=== PATIENT | male | born 1955 | race African-American/Black ===

== ENCOUNTER → 2017-03-23 08:26 | Outpatient (CLI) | payer BC, SELFPAY ==
[2017-03-23 10:10] LABS: Absolute Lymphocyte Count 1.65 X10^3/ul (0.83-4.51); Absolute Neutrophil Count 3.2 X10^3/uL (2.0-7.7); Basophil# 0.04 X10^3/uL; Basophil% 0.8 % (0-1); Eosinophil# 0.06 X10^3/uL; Eosinophils% 1.1 % (0-5); Hematocrit 39.6 % (40-54); Hemoglobin 13.1 g/dl (13.0-16.5); Lymphocyte # 1.65 X10^3/ul (4.0); Lymphocyte % 31.1 % (19-41); Mean Corp Hgb Conc 33.1 g/gl (32-36); Mean Corpuscular Hgb 28.9 pg (27.0-32.0); Mean Corpuscular Volume 87.4 fL (80-94); Mean Platelet Vol. 12.3 fl (6.2-12.0); Monocyte# 0.32 X10^3/uL; Neutrophil # 3.22 X10^3/uL (2.7-7.7); Neutrophil % 60.8 % (47-70); Platelet Count 199 K/mm3 (150-450); RBC Distribution Width CV 13.5 % (11.6-14.6); Red Blood Count 4.53 M/mm3 (4.6-6.2); White Blood Count 5.3 K/mm3 (4.4-11.0)
[2017-03-23 10:12] LABS: POSITIVE COUNT NO; POSITIVE DIFFERENTIAL NO; POSITIVE MORPHOLOGY NO
[2017-03-23 10:51] LABS: PTHIN 85.8 pg/mL (18.4-80.1)
== END ==
PROVIDERS: Family Provider Family Medicine; PCP Family Medicine; Visit Provider Internal Medicine Nephrology
DX: N18.3 Chronic kidney disease, stage 3 (moderate) (principal)
CPT/HCPCS: 36415; 83970; 85025

== ENCOUNTER → 2017-03-29 12:07 | Outpatient (CLI) | payer BC, SELFPAY ==
[2017-03-29 13:30] LABS: Albumin, Serum 3.2 g/dL (3.2-5.0); BUN 28 mg/dL (7-18); BUN/Creat Ratio 9.4 RATIO (10-20); Calcium,Total 8.6 mg/dL (8.5-10.1); Chloride 108 mmol/L (98-107); Creatinine, Serum 2.97 mg/dL (0.70-1.30); EST Glomerular Filtration Rate 23 mL/min (>60); Est Glom Filt Rate - Afr Amer 28 mL/min (>60); Glucose 182 mg/dL (74-106); Phosphorus 2.7 mg/dL (2.5-4.9); Potassium 4.2 mmol/L (3.5-5.1); Sodium Level 138 mmol/L (136-145)
== END ==
PROVIDERS: Family Provider Family Medicine; PCP Family Medicine; Visit Provider Internal Medicine Nephrology
DX: N18.3 Chronic kidney disease, stage 3 (moderate) (principal)
CPT/HCPCS: 36415; 80069

== ENCOUNTER → 2017-04-04 15:39 | Outpatient (CLI) | payer BC, SELFPAY ==
[2017-04-04 16:36] LABS: Hematocrit 37.4 % (40-54); Hemoglobin 12.2 g/dl (13.0-16.5); Mean Corp Hgb Conc 32.6 g/gl (32-36); Mean Corpuscular Hgb 28.3 pg (27.0-32.0); Mean Corpuscular Volume 86.8 fL (80-94); Mean Platelet Vol. 11.3 fl (6.2-12.0); Platelet Count 225 K/mm3 (150-450); RBC Distribution Width CV 13.6 % (11.6-14.6); RBC Distribution Width SD 43.6 fl (35.1-43.9); Red Blood Count 4.31 M/mm3 (4.6-6.2); White Blood Count 5.6 K/mm3 (4.4-11.0)
[2017-04-04 16:41] LABS: Scan Indicated on CBC? Y/N NO
[2017-04-04 17:04] LABS: Prothrombin Time (Protime)PT. 12.8 SECONDS (11.7-14.9)
== END ==
PROVIDERS: Family Provider Family Medicine; PCP Family Medicine; Visit Provider Internal Medicine Nephrology
DX: N18.3 Chronic kidney disease, stage 3 (moderate) (principal); R80.9 Proteinuria, unspecified
CPT/HCPCS: 36415; 85027; 85610; 85730

== ENCOUNTER → 2017-04-14 07:41 | Outpatient (CLI) | payer BC, SELFPAY ==
--- NOTE | 2017-04-14 | KID_PTH ---
PATIENT: JESSI ACOSTA LOC: CT U#:[id number] AGE/SX: 69/M ROOM: RE04/14/[address]: Dr. Lelia Hinojosa DO : 1955 BED: DIS: SPEC #: [id number] RECD: 04/14/17 10:33 STATUS: INDIO FREDERIC #: [id number] JAMSHID: 04/14/17 00:[address]: Lelia Hinojosa DEPT: SURGICAL PATHOLOGY RECD BY: Sami Landrum ENTERED: 04/14/17 10:34 SP TYPE: KIDNEY OTHR DR: Dr. Anupam Daily MD Tissues: Kidney, NOS Procedures: Electron Microscopy (ACH) Fluorescent Antibody (ACH) Sp [facility] Kidney ([facility]) Kidney Biopsy (ACH) HEADER OPERATION: CT-guided kidney biopsy - left PRE-OP DIAGNOSIS: Proteinuria TISSUE SUBMITTED: 18g core x4, left kidney MICROSCOPIC DIAGNOSIS Renal biopsy with arterionephrosclerosis, approximately 50% global glomerulosclerosis, focal perihilar segmental sclerosis and chronic tubulointerstitial changes. COMMENT There is arterionephrosclerosis and perihilar segmental sclerosis with a large number of totally sclerotic glomeruli 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 There are moderate chronic tubulointerstitial changes. MICROSCOPIC DESCRIPTION Sections are examined with H & E, PAS, Yeung and trichrome stains. Controls for the special stains are appropriate. There are 28 glomeruli present. 14 show total glomerulosclerosis, 2 glomeruli show perihilar segmental glomerulosclerosis. The remainder glomeruli show mesangial sclerosis and thickened vascular poles. There is no glomerulitis and no acellular mesangial nodules suggestive of K-W nodules are evident. There are foci of tubular atrophy and there is moderate interstitial fibrosis. There are scattered interstitial lymphocytes but no significant eosinophils. Arterioles show medial thickening. No fibrinoid change or arteritis is defined. IMMUNOFLUORESCENCE: There are 8 glomeruli present. 4 glomeruli are sclerotic. There is no glomerular staining to suggest specific deposition of immunoglobulins (IgG, IgA or IgM), complement components (C3 or C1q) or light chains (kappa or lambda). There are some albumin droplets in tubular cells consistent with proteinuria. There is no increase in glomerular fibrin deposition. ELECTRON MICROSCOPY: There are 4 glomeruli present. 2 glomeruli are sclerotic, demonstrating only stacks of collapsed basement membranes. In the preserved glomeruli, mesangia show increased matrix but no discrete deposits. The glomerular capillary loops show slightly thickened capillary basement membranes. There is mild to moderate epithelial cell foot process effacement. There are no electron dense deposits in glomerular capillary loops. Tubular basement membranes show no deposits. GROSS DESCRIPTION The specimen is sent entirely to [facility] for diagnosis. The specimen is received in transport medium and consists of four cores of suárez renal tissue 1.7 to 1.3 cm in length. The cores are divided for histology, immunofluorescence and electron microscopy.
--- NOTE | 2017-04-14 07:45 | CT_ITS ---
PROCEDURE: CT GUIDED PERCUTANEOUS KIDNEY BIOPSY. DATE: April 14, 2017. INDICATION: Male, 61 years old. Proteinuria. PHYSICIAN: Jeremie Hess M.D. MEDICATIONS: 2 mg of Versed and 50 mcg of fentanyl intravenously. Conscious sedation protocol was followed. Conscious sedation was started at 9:23 AM and terminated at 9:30 AM. The patient was monitored independently by the department nurse. ACCESS SITE: Lower pole of the left kidney. NEEDLE: 18-gauge core biopsy needle. SPECIMEN: 4 18-gauge core. EBL: None. COMPLICATIONS: None immediate. RADIATION DOSAGE (If Supplied By Facility): CTDIvol = ( 16 ) mGy, DLP = ( 735.61 ) mGycm. Individualized dose reduction techniques were utilized. The risks, benefits, and alternatives to the procedure and sedation were explained to the patient. The specific risk of hemorrhage requiring further treatment or intervention was detailed and accepted. Written informed consent was obtained. The patient was placed on the CT table in the prone position. Multiple axial images were obtained from the lung base through the caudal extent of the kidneys. An appropriate entry site was identified and a dian made on the skin. The skin overlying the [left ] posterior flank was prepped and draped in sterile fashion. 1% lidocaine was administered subcutaneously for local anesthesia. Initially, a 22 gauge needle was advanced and CT images confirmed good needle position. The 22 gauge needle was then exchanged for an 17 gauge introducer needle which was advanced. Repeat CT images confirmed good needle trajectory and tip position. The introducer needle was then advanced into the periphery of the inferior renal pole, and CT images were again obtained to confirm exact tip location. The inner stylet of the introducer needle was then removed and an 18 gauge coaxial needle was advanced thru the introducer needle and biopsy performed. A total of [4 ] passes were performed and the specimen collected was sent to Pathology for further evaluation. The needle was withdrawn. Hemostasis was achieved with manual compression and a sterile dressing was applied. Repeat CT images of the biopsy area was performed which demonstrated no gross bleeding or hematoma. The patient tolerated the procedure well without immediate complications. The patient was transported to the [floor/recovery area] in stable condition. CT/Biopsy/Inj or Needle Placement IMPRESSION: Successful CT guided percutaneous kidney biopsy. Electronically Signed: Jeremie Hess MD at 10:00 EST Tel [phone], Service support ,
[2017-04-14 08:15] VITALS: BP 156/99; PULSE 70; RESP 14; TEMP 36.9; O2SAT 97; BMI 34.4
[2017-04-14 10:45] VITALS: BP 135/96; PULSE 69; RESP 14; O2SAT 98
== END ==
PROVIDERS: Family Provider Family Medicine; PCP Family Medicine; Visit Provider Internal Medicine Nephrology
DX: R80.9 Proteinuria, unspecified (principal)
CPT/HCPCS: 50200; 77012; 88305; 88313; 88346; 88348; 99156; J7040; A4216

== ENCOUNTER → 2017-04-25 15:25 | Outpatient (CLI) | payer BC, SELFPAY ==
[2017-04-25 18:02] LABS: Hematocrit 37.6 % (40-54); Hemoglobin 12.1 g/dl (13.0-16.5); Mean Corp Hgb Conc 32.2 g/gl (32-36); Mean Corpuscular Hgb 28.1 pg (27.0-32.0); Mean Corpuscular Volume 87.4 fL (80-94); Mean Platelet Vol. 11.6 fl (6.2-12.0); Platelet Count 238 K/mm3 (150-450); RBC Distribution Width CV 13.7 % (11.6-14.6); RBC Distribution Width SD 43.6 fl (35.1-43.9); White Blood Count 5.6 K/mm3 (4.4-11.0)
[2017-04-25 18:16] LABS: Scan Indicated on CBC? Y/N NO
[2017-04-25 18:20] LABS: BUN 36 mg/dL (7-18); Calcium,Total 8.5 mg/dL (8.5-10.1); Chloride 106 mmol/L (98-107); Creatinine, Serum 3.27 mg/dL (0.70-1.30); EST Glomerular Filtration Rate 21 mL/min (>60); Est Glom Filt Rate - Afr Amer 25 mL/min (>60); Glucose 126 mg/dL (74-106); Phosphorus 4.2 mg/dL (2.5-4.9); Sodium Level 137 mmol/L (136-145)
== END ==
PROVIDERS: Family Provider Family Medicine; PCP Family Medicine; Visit Provider Internal Medicine Nephrology
DX: N18.3 Chronic kidney disease, stage 3 (moderate) (principal)
CPT/HCPCS: 36415; 80069; 85027

== ENCOUNTER → 2017-06-01 11:30 | Outpatient (CLI) | payer BC, SELFPAY ==
[2017-06-01 14:01] LABS: Hematocrit 36.6 % (40-54); Hemoglobin 12.4 g/dl (13.0-16.5); Mean Corp Hgb Conc 33.9 g/gl (32-36); Mean Corpuscular Hgb 29.1 pg (27.0-32.0); Mean Corpuscular Volume 85.9 fL (80-94); Mean Platelet Vol. 11.5 fl (6.2-12.0); Platelet Count 234 K/mm3 (150-450); RBC Distribution Width CV 13.3 % (11.6-14.6); RBC Distribution Width SD 41.4 fl (35.1-43.9); Red Blood Count 4.26 M/mm3 (4.6-6.2); White Blood Count 5.8 K/mm3 (4.4-11.0)
[2017-06-01 14:02] LABS: Scan Indicated on CBC? Y/N NO
[2017-06-01 14:16] LABS: Albumin, Serum 3.4 g/dL (3.2-5.0); BUN 36 mg/dL (7-18); Calcium,Total 8.6 mg/dL (8.5-10.1); Chloride 111 mmol/L (98-107); Creatinine, Serum 3.26 mg/dL (0.70-1.30); EST Glomerular Filtration Rate 21 mL/min (>60); Est Glom Filt Rate - Afr Amer 25 mL/min (>60); Glucose 96 mg/dL (74-106); Phosphorus 2.9 mg/dL (2.5-4.9); Sodium Level 141 mmol/L (136-145)
[2017-06-01 14:22] LABS: PTHIN 153.1 pg/mL (18.4-80.1)
[2017-06-01 14:35] LABS: Vitamin D,25 Hydroxy 24.5 ng/mL (29.95-100.01)
== END ==
PROVIDERS: Internal Medicine Nephrology; Family Provider Family Medicine; PCP Family Medicine; Visit Provider Family Medicine
DX: N18.4 Chronic kidney disease, stage 4 (severe) (principal); E55.9 Vitamin D deficiency, unspecified
CPT/HCPCS: 36415; 80069; 82306; 83970; 85027

== ENCOUNTER → 2017-08-05 10:02 | Outpatient (CLI) | payer BC, SELFPAY ==
[2017-08-05 12:15] LABS: Hematocrit 36.2 % (40-54); Hemoglobin 12.2 g/dl (13.0-16.5); Mean Corp Hgb Conc 33.7 g/gl (32-36); Mean Corpuscular Hgb 29.8 pg (27.0-32.0); Mean Corpuscular Volume 88.5 fL (80-94); Mean Platelet Vol. 12.6 fl (6.2-12.0); Platelet Count 197 K/mm3 (150-450); RBC Distribution Width CV 13.4 % (11.6-14.6); RBC Distribution Width SD 42.8 fl (35.1-43.9); Red Blood Count 4.09 M/mm3 (4.6-6.2); White Blood Count 5.2 K/mm3 (4.4-11.0)
[2017-08-05 12:19] LABS: Scan Indicated on CBC? Y/N NO
[2017-08-05 12:29] LABS: BUN 34 mg/dL (7-18); BUN/Creat Ratio 9.5 RATIO (10-20); Calcium,Total 8.4 mg/dL (8.5-10.1); Chloride 109 mmol/L (98-107); Creatinine, Serum 3.58 mg/dL (0.70-1.30); EST Glomerular Filtration Rate 19 mL/min (>60); Est Glom Filt Rate - Afr Amer 22 mL/min (>60); Glucose 215 mg/dL (74-106); Phosphorus 2.8 mg/dL (2.5-4.9); Potassium 4.3 mmol/L (3.5-5.1); Sodium Level 139 mmol/L (136-145)
[2017-08-05 12:42] LABS: PTHIN 100.2 pg/mL (18.4-80.1)
[2017-08-05 12:50] LABS: 24HR. UA Prot. Total Volume 1800 mL; Creat.Clear Total Volume 1800 mL; Creatinine Clearance 44 ml/min (100-200); Creatinine Serum Creat 3.6 mg/dL (0.8-1.3); EST Glomerular Filtration Rate 19 mL/min (>60); Est Glom Filt Rate - Afr Amer 22 mL/min (>60)
[2017-08-05 12:53] LABS: Urine Protein (24 Hour) 466.9 mg/dL (<11.9)
== END ==
PROVIDERS: Family Provider Family Medicine; PCP Family Medicine; Visit Provider Internal Medicine Nephrology
DX: E11.22 Type 2 diabetes mellitus with diabetic chronic kidney disease (principal); N18.4 Chronic kidney disease, stage 4 (severe)
CPT/HCPCS: 36415; 80069; 81050; 82570; 82575; 83970; 84156; 85027

== ENCOUNTER → 2017-11-09 15:38 | Outpatient (CLI) | payer BC, SELFPAY ==
[2017-11-09 17:43] LABS: Albumin, Serum 3.2 g/dL (3.2-5.0); BUN 42 mg/dL (7-18); BUN/Creat Ratio 9.6 RATIO (10-20); Calcium,Total 8.2 mg/dL (8.5-10.1); Chloride 110 mmol/L (98-107); Creatinine, Serum 4.37 mg/dL (0.70-1.30); EST Glomerular Filtration Rate 15 mL/min (>60); Est Glom Filt Rate - Afr Amer 18 mL/min (>60); Glucose 114 mg/dL (74-106); Phosphorus 3.8 mg/dL (2.5-4.9); Potassium 4.2 mmol/L (3.5-5.1); Sodium Level 142 mmol/L (136-145)
== END ==
PROVIDERS: Family Provider Family Medicine; PCP Family Medicine; Visit Provider Internal Medicine Nephrology
DX: N18.3 Chronic kidney disease, stage 3 (moderate) (principal)
CPT/HCPCS: 36415; 80069

== ENCOUNTER → 2017-12-26 08:42 | Outpatient (CLI) | payer BC, SELFPAY ==
[2017-12-26 10:56] LABS: AST(SGOT) 13 U/L (15-37); Alanine Aminotransfer ALT/SGPT 17 U/L (16-61); Albumin, Serum 3.2 g/dL (3.2-5.0); Alkaline Phosphatase 85 U/L (45-117); Anion Gap 7 (5-15); BUN 44 mg/dL (7-18); BUN/Creat Ratio 10.5 RATIO (10-20); Bilirubin, Direct 0.09 mg/dL (0.00-0.30); Calcium,Total 8.3 mg/dL (8.5-10.1); Chloride 110 mmol/L (98-107); Cholesterol 191 mg/dL (200); Creatinine, Serum 4.19 mg/dL (0.70-1.30); EST Glomerular Filtration Rate 15 mL/min (>60); Est Glom Filt Rate - Afr Amer 19 mL/min (>60); Globulin 4.1 g/dL (2.2-4.2); Glucose 190 mg/dL (74-106); High Density Lipoprotein 50 mg/dL; Potassium 4.5 mmol/L (3.5-5.1); Protein, Total 7.3 g/dL (6.4-8.2); Sodium Level 140 mmol/L (136-145); Triglycerides 98 mg/dL; Very Low Density Lipoprotein 20 mg/dL (5-40)
== END ==
PROVIDERS: Family Provider Family Medicine; PCP Family Medicine; Visit Provider Family Medicine
DX: I10 Essential (primary) hypertension (principal); E11.9 Type 2 diabetes mellitus without complications
CPT/HCPCS: 36415; 80048; 80061; 80076

== ENCOUNTER → 2018-01-23 08:34 | Outpatient (CLI) | payer BC, SELFPAY ==
[2018-01-23 10:21] LABS: Mean Corp Hgb Conc 32.4 g/gl (32-36); Mean Corpuscular Hgb 28.5 pg (27.0-32.0); Mean Corpuscular Volume 87.9 fL (80-94); Mean Platelet Vol. 11.7 fl (6.2-12.0); Platelet Count 210 K/mm3 (150-450); RBC Distribution Width CV 13.4 % (11.6-14.6); RBC Distribution Width SD 42.9 fl (35.1-43.9); Red Blood Count 4.21 M/mm3 (4.6-6.2); White Blood Count 6.4 K/mm3 (4.4-11.0)
[2018-01-23 10:22] LABS: Scan Indicated on CBC? Y/N NO
[2018-01-23 10:33] LABS: Albumin, Serum 3.3 g/dL (3.2-5.0); BUN 51 mg/dL (7-18); BUN/Creat Ratio 10.5 RATIO (10-20); Calcium,Total 8.2 mg/dL (8.5-10.1); Chloride 110 mmol/L (98-107); Creatinine, Serum 4.88 mg/dL (0.70-1.30); EST Glomerular Filtration Rate 13 mL/min (>60); Est Glom Filt Rate - Afr Amer 16 mL/min (>60); Glucose 184 mg/dL (74-106); Phosphorus 4.5 mg/dL (2.5-4.9); Potassium 4.4 mmol/L (3.5-5.1); Sodium Level 141 mmol/L (136-145)
[2018-01-23 10:57] LABS: PTHIN 293.8 pg/mL (18.4-80.1)
[2018-01-23 12:55] LABS: 24HR. UA Prot. Total Volume 1875 mL; Creat.Clear Total Volume 1875 mL; Creatinine Clearance 26 ml/min (100-200); Creatinine Serum Creat 4.9 mg/dL (0.8-1.3); Creatinine Urine 96.9 mg/dL (NO RANGE EST.); EST Glomerular Filtration Rate 13 mL/min (>60); Est Glom Filt Rate - Afr Amer 16 mL/min (>60)
[2018-01-23 12:58] LABS: Urine Protein (24 Hour) 531.8 mg/dL (<11.9)
--- OUTSIDE RECORDS SUMMARY | 2018-04-26 19:48 | XMS RPT_ITS ---
:1955 Author Organization OHIP Support Name Relationship Address Phone YANELY ACOSTA Unavailable [address] + [place] [address] [employer] Unavailable [address] +[place] [address] DAVE, YANELY Unavailable [address] + [place] [address] [employer] Unavailable [address] +[place] [address] DAVE, YANELY Unavailable [address] + [place] [address] [employer] Unavailable [address] +[place] [address] DAVE, YANELY Unavailable [address] + [place] [address] [employer] Unavailable [address] +[place] [address] DAVE, YANELY Unavailable [address] + [place] [address] [employer] Unavailable [address] +[place] [address] DAVE, YANELY Unavailable [address] + [place] [address] [employer] Unavailable [address] +[place] [address] DAVE, YANELY Unavailable [address] + [place] [address] [employer] Unavailable [address] +[place] [address] DAVE, YANELY Unavailable [address] + [place] [address] [employer] Unavailable [address] +[place] [address] DAVE, YANELY Unavailable [address] + [place] [address] [employer] Unavailable [address] +[place] [address] DAVE, YANELY Unavailable [address] + [place] [address] [employer] Unavailable [address] +[place] [address] DAVE, YANELY Unavailable [address] + [place] [address] [employer] Unavailable [address] +[place] [address] DAVE, YANELY Unavailable [address] + [place] [address] [employer] Unavailable [address] +[place] [address] DAVE, YANELY Unavailable [address] + [place] [address] [employer] Unavailable [address] +[place] [address] DAVE, YANELY Unavailable [address] + [place] [address] [employer] Unavailable [address] +[place] [address] DAVE, YANELY Unavailable [address] + [place] [address] [employer] Unavailable [address] +[place] [address] Care Team Providers Name Role Phone Lelia Hinojosa Attending Unavailable Daily, Anupam Primary Care Unavailable Lelia Hinojosa Attending Unavailable Daily, Anupam Primary Care Unavailable Lelia Hinojosa Attending Unavailable Daily, Anupam Primary Care Unavailable Lelia Hinojosa Attending Unavailable Daily, Anupam Primary Care Unavailable Lelia Hinojosa Attending Unavailable Daily, Anupam Primary Care Unavailable Lelia Hinojosa Attending Unavailable Daily, Anupam Primary Care Unavailable Lelia Hinojosa Attending Unavailable Daily, Anupam Primary Care Unavailable Lelia Hinojosa Attending Unavailable Lelia Hinojosa Referring Unavailable Daily, Anupam Primary Care Unavailable Lelia Hinojosa Attending Unavailable Daily, Anupam Primary Care Unavailable Daily, Anupam Attending Unavailable Daily, Anupam Primary Care Unavailable Lelia Hinojosa Attending Unavailable Lelia Hinojosa Attending Unavailable Daily, Anupam Primary Care Unavailable Lelia Hinojosa Attending Unavailable Daily, Anupam Primary Care Unavailable Lelia Hinojosa Attending Unavailable Daily, Anpuam Primary Care Unavailable Daily, Anupam Attending Unavailable Daily, Anupam Primary Care Unavailable PROBLEMS PROBLEMS DATE TYPE CONDITION / CODE ATTENDING STATUS SOURCE 12/26/2017 Unknown I10 - Essential Anupam Daily Active [place] (primary) Community hypertension / Hospital I10(ICD-10) Repository 11/09/2017 Unknown N18.3 - Chronic Lelia Hinojosa Active [place] kidney disease, Community stage 3 (moderate) Hospital / N18.3(ICD-10) Repository 06/10/2017 Unknown N18.4 - Chronic Lelia Hinojosa Active [place] kidney disease, Community stage 4 (severe) / Hospital N18.4(ICD-10) Repository 06/01/2017 Unknown E55.9 - Vitamin D Anupam Daily Active [place] deficiency, Community unspecified / Hospital E55.9(ICD-10) Repository 04/14/2017 Unknown R80.9 - L[place] Hinojosa Active [place] Proteinuria, Community unspecified / Hospital R80.9(ICD-10) Repository PROCEDURES PROCEDURES No Procedure Records FoundRESULTS RESULTS CBC-COMPLETE BLOOD CNT Collected: 02/27/2018 Status: F Source: [place] NO DIFF 1:46 PM [facility] [place] TYPE CODE TESTS RESULT OUT OF RANGE REFERENCE UNITS LAB L100.1000 4.4-11.0 K/mm3 Normal WBC 5.5 LAB L100.1200 4.6-6.2 M/mm3 Low RBC 4.20 LAB L100.1300 13.0-16.5 g/dl Low HGB 12.2 LAB L100.1400 40-54 % Low HCT 37.4 LAB L100.1500 80-94 fL Normal MCV 89.0 LAB L100.1600 27.0-32.0 pg Normal MCH 29.0 LAB L100.1700 32-36 g/gl Normal MCHC 32.6 LAB L100.1810 11.6-14.6 % Normal RDW CV 13.5 LAB L100.1820 35.1-43.9 fl Normal RDW SD 43.4 LAB L100.1900 150-450 K/mm3 Normal PLT 188 LAB L100.2000 6.2-12.0 fl High MPV 12.8 Performed By: #### L100.0500 #### [facility] [address] [place], [place], [address] RENAL PROFILE Collected: 02/27/2018 Status: F Source: [place] 1:46 PM [facility] [place] TYPE CODE TESTS RESULT OUT OF RANGE REFERENCE UNITS LAB L501.0100 74-106 mg/dL Low GLU 53 Result Comment: Please note revised GLUCOSE reference range effective 2017. LAB L501.1000 7-18 mg/dL High BUN 53 LAB L501.1100 0.70-1.30 mg/dL High CREAT,SERUM 5.78 Result Comment: The validity of the calculated GFR AND GFRAA in patients over 70 years has not been determined. Clinical correlation is essential. LAB L501.1110 >60 mL/min Low EST GFR 11 Result Comment: Non- GFR Calc LAB L501.1115 >60 mL/min Low EST GFR - AA 13 Result Comment: GFR Calc LAB L501.1300 10-20 RATIO Low BUN/CRE 9.2 LAB L501.1800 3.2-5.0 g/dL Normal ALB 3.4 LAB L501.2200 8.5-10.1 mg/dL Normal CA 8.5 LAB L501.2300 2.5-4.9 mg/dL Normal PHOS 3.8 LAB L501.5300 136-145 mmol/L Normal NA 142 LAB L501.5600 3.5-5.1 mmol/L Normal K 4.7 LAB L501.5900 98-107 mmol/L High CL 111 LAB L501.6100 21.0-32.0 mmol/L Low CO2 20.0 Performed By: #### L500.3600, L503.6075, L503.6150, L503.6550 #### [facility] [address] [place], [place], [id number] IRON BINDING Collected: 02/27/2018 Status: F Source: [facility] 1:46 PM [facility] [place] TYPE CODE TESTS RESULT OUT OF RANGE REFERENCE UNITS LAB L503.6075 250-450 ug/dL Normal TIBC 273 Performed By: #### L500.3600, L503.6075, L503.6150, L503.6550 #### [facility] [address] [facility]. [place], [place], [address] IRON Collected: 02/27/2018 Status: F Source: [place] 1:46 PM [facility] [place] TYPE CODE TESTS RESULT OUT OF RANGE REFERENCE UNITS LAB L503.6150 65-175 ug/dL Normal IRON 83 Performed By: #### L500.3600, L503.6075, L503.6150, L503.6550 #### [facility] [address] [place], [address] FERRITIN Collected: 02/27/2018 Status: F Source: [place] 1:46 PM [facility] [place] TYPE CODE TESTS RESULT OUT OF RANGE REFERENCE UNITS LAB L503.6550 26-388 ng/mL Normal FERRITIN 269 Performed By: #### L500.3600, L503.6075, L503.6150, L503.6550 #### [facility] [address] [place], [address] VITAMIN D,25 HYDROXY Collected: 02/27/2018 Status: F Source: [place] 1:46 PM [facility] [place] TYPE CODE TESTS RESULT OUT OF REFERENCE UNITS RANGE LAB L506.1000 29.95-100.01 ng/mL Low Vitamin D 18.7 25-OH Result Comment: Vitamin D 25(OH) Status Range Deficiency <20 ng/mL (50nmol/L) Insuffciency 20 - 30 ng/mL (50 - 75 nmol/L) Sufficiency 30 - 100 ng/mL (75 - 250 nmol/L) Toxicity >100 ng/mL (>250 nmol/L) Performed By: #### L506.1000 #### [facility] [address] [facility] [place], [address] PTHIN Collected: 02/27/2018 Status: F Source: [place] 1:46 PM [facility] [place] TYPE CODE TESTS RESULT OUT OF RANGE REFERENCE UNITS LAB L509.1000 18.4-80.1 pg/mL High PTHIN 245.2 Performed By: #### L509.1000 #### [facility] [address] [place], [address] CBC-COMPLETE BLOOD CNT Collected: 01/23/2018 Status: F Source: [place] NO DIFF 8:36 AM [facility] [place] TYPE CODE TESTS RESULT OUT OF RANGE REFERENCE UNITS LAB L100.1000 4.4-11.0 K/mm3 Normal WBC 6.4 LAB L100.1200 4.6-6.2 M/mm3 Low RBC 4.21 LAB L100.1300 13.0-16.5 g/dl Low HGB 12.0 LAB L100.1400 40-54 % Low HCT 37.0 LAB L100.1500 80-94 fL Normal MCV 87.9 LAB L100.1600 27.0-32.0 pg Normal MCH 28.5 LAB L100.1700 32-36 g/gl Normal MCHC 32.4 LAB L100.1810 11.6-14.6 % Normal RDW CV 13.4 LAB L100.1820 35.1-43.9 fl Normal RDW SD 42.9 LAB L100.1900 150-450 K/mm3 Normal PLT 210 LAB L100.2000 6.2-12.0 fl Normal MPV 11.7 Performed By: #### L100.0500 #### [facility] [address] [place], [address] RENAL PROFILE Collected: 01/23/2018 Status: F Source: [place] 8:36 AM [facility] [place] TYPE CODE TESTS RESULT OUT OF RANGE REFERENCE UNITS LAB L501.0100 74-106 mg/dL High GLU 184 Result Comment: Fasting Glucose result greater than or equal to 126 mg/dL suggests DIABETES MELLITUS per A.D.A. criteria. Please note revised GLUCOSE reference range effective 2017. LAB L501.1000 7-18 mg/dL High BUN 51 LAB L501.1100 0.70-1.30 mg/dL High CREAT,SERUM 4.88 Result Comment: The validity of the calculated GFR AND GFRAA in patients over 70 years has not been determined. Clinical correlation is essential. LAB L501.1110 >60 mL/min Low EST GFR 13 Result Comment: Non- GFR Calc LAB L501.1115 >60 mL/min Low EST GFR - AA 16 Result Comment: GFR Calc LAB L501.1300 10-20 RATIO Normal BUN/CRE 10.5 LAB L501.1800 3.2-5.0 g/dL Normal ALB 3.3 LAB L501.2200 8.5-10.1 mg/dL Low CA 8.2 LAB L501.2300 2.5-4.9 mg/dL Normal PHOS 4.5 LAB L501.5300 136-145 mmol/L NA Normal 141 LAB L501.5600 3.5-5.1 mmol/L K Normal 4.4 LAB L501.5900 98-107 mmol/L High CL 110 LAB L501.6100 21.0-32.0 mmol/L Normal CO2 23.0 Performed By: #### L500.3600 #### [facility] [address] [place], [address] PTHIN Collected: 01/23/2018 Status: F Source: [place] 8:36 AM [facility] [place] TYPE CODE TESTS RESULT OUT OF RANGE REFERENCE UNITS LAB L509.1000 18.4-80.1 pg/mL High PTHIN 293.8 Performed By: #### L509.1000 #### [facility] [address] [place], [address] 24 HR UR CREATININE Collected: 01/23/2018 Status: F Source: [place] CLEAR[place] 8:36 AM [facility] [place] TYPE CODE TESTS RESULT OUT OF RANGE REFERENCE UNITS LAB L501.0050 24.0 HOURS Normal UR COLLECT 24.0 TIME LAB L501.0075 mL Normal UR TOTAL 1875 VOLUME LAB L501.1050 0.8-1.3 mg/dL High SERUM CREAT 4.9 LAB L501.1110 >60 mL/min Low EST GFR 13 Result Comment: Non- GFR Calc LAB L501.1115 >60 mL/min Low EST GFR - AA 16 Result Comment: GFR Calc LAB L501.1150 NO RANGE mg/dL EST. URINE Normal CREAT 96.9 LAB L501.1250 100-200 ml/min Low CREAT CLEARANCE 26 Performed By: #### L500.4507 #### [facility] [address] [place], [address] PROTEIN, URINE 24HR Collected: 01/23/2018 Status: C Source: [place] 8:36 AM [facility] [place] TYPE CODE TESTS RESULT OUT OF RANGE REFERENCE UNITS LAB L501.1850 24.0 HOURS Normal UR COLLECT 24.0 TIME LAB L501.1875 mL Normal UR TOTAL 1875 VOLUME LAB L501.1925 <150 MG/24HR mg/24HR High 24hr UR 9971.3 PROTEIN Result Comment: AMENDED REPORT 01/23/18 1258 24hr UR PROTEIN previously reported as: 9971.2 H mg/24HR LAB L501.1900 <11.9 mg/dL High URINE PROTEIN 531.8 Performed By: #### L500.9000 #### [facility] [address] [place], [place], [address] BASIC METABOLIC Collected: 12/26/2017 Status: F Source: [place] PROFILE (BMP) 8:43 AM [facility] [place] TYPE CODE TESTS RESULT OUT OF RANGE REFERENCE UNITS LAB L501.0100 74-106 mg/dL High GLU 190 Result Comment: Fasting Glucose result greater than or equal to 126 mg/dL suggests DIABETES MELLITUS per A.D.A. criteria. Please note revised GLUCOSE reference range effective 2017. LAB L501.1000 7-18 mg/dL High BUN 44 LAB L501.1100 0.70-1.30 mg/dL High CREAT,SERUM 4.19 Result Comment: The validity of the calculated GFR AND GFRAA in patients over 70 years has not been determined. Clinical correlation is essential. LAB L501.1110 >60 mL/min Low EST GFR 15 Result Comment: Non- GFR Calc LAB L501.1115 >60 mL/min Low EST GFR - AA 19 Result Comment: GFR Calc LAB L501.1300 10-20 RATIO Normal BUN/CRE 10.5 LAB L501.2200 8.5-10.1 mg/dL Low CA 8.3 LAB L501.5300 136-145 mmol/L NA Normal 140 LAB L501.5600 3.5-5.1 mmol/L K Normal 4.5 LAB L501.5900 98-107 mmol/L High CL 110 LAB L501.6100 21.0-32.0 mmol/L Normal CO2 23.0 LAB L501.6200 5-15 Normal GAP 7 Performed By: #### L500.2500, L500.3400, L500.4100 #### [facility] [address] [place], [place], [address] LIVER PROFILE Collected: 12/26/2017 Status: F Source: [place] 8:43 AM [facility] [place] TYPE CODE TESTS RESULT OUT OF RANGE REFERENCE UNITS LAB L501.1500 6.4-8.2 g/dL Normal T PROT 7.3 LAB L501.1800 3.2-5.0 g/dL Normal ALB 3.2 LAB L501.1950 2.2-4.2 g/dL Normal GLOB 4.1 LAB L501.4100 15-37 U/L Low AST 13 LAB L501.4305 45-117 U/L Normal ALK P 85 LAB L501.4405 16-61 U/L Normal ALT 17 LAB L501.4600 0.20-1.00 mg/dL Normal T BILI 0.30 LAB L501.4700 0.00-0.30 mg/dL Normal D BILI 0.09 Performed By: #### L500.2500, L500.3400, L500.4100 #### [facility] [address] [facility] [address] [place], [place], [id number] LIPID PROFILE Collected: 12/26/2017 Status: F Source: [place] 8:43 AM [facility] [place] TYPE CODE TESTS RESULT OUT OF RANGE REFERENCE UNITS LAB L501.4900 200 mg/dL Normal CHOL 191 Result Comment: <200 mg/dL Desirable 200-240 mg/dL Borderline >240 mg/dL High Risk LAB L501.5000 mg/dL Normal TRIG 98 Result Comment: The drugs N-Acetylcysteine and Metamizole may falsely depress this assay. Serum Triglycerides Reference Interval Normal <150 mg/dL Borderline high 150 - 199 mg/dL High 200 - 499 mg/dL Very High > or = 500 mg/dL LAB L501.6400 mg/dL Normal HDL 50 Result Comment: The drugs N-Acetylcysteine and Metamizole may falsely depress this assay. Reference Range HDL <40 mg/dL Low HDL Cholesterol HDL >or= 60 mg/dL High HDL Cholesterol LAB L501.6500 0-130 mg/dL Normal LDL 121 LAB L501.6600 5-40 mg/dL Normal VLDL 20 Performed By: #### L500.2500, L500.3400, L500.4100 #### [facility] [address] [place], [address] RENAL PROFILE Collected: 11/09/2017 Status: F Source: [place] 3:39 PM [facility] [place] TYPE CODE TESTS RESULT OUT OF RANGE REFERENCE UNITS LAB L501.0100 74-106 mg/dL High GLU 114 Result Comment: Fasting Glucose result from 100 to 125 mg/dL suggests IMPAIRED HOMEOSTASIS per A.D.A. criteria. Please note revised GLUCOSE reference range effective 2017. LAB L501.1000 7-18 mg/dL High BUN 42 LAB L501.1100 0.70-1.30 mg/dL High CREAT,SERUM 4.37 Result Comment: The validity of the calculated GFR AND GFRAA in patients over 70 years has not been determined. Clinical correlation is essential. LAB L501.1110 >60 mL/min Low EST GFR 15 Result Comment: Non- GFR Calc LAB L501.1115 >60 mL/min Low EST GFR - AA 18 Result Comment: GFR Calc LAB L501.1300 10-20 RATIO Low BUN/CRE 9.6 LAB L501.1800 3.2-5.0 g/dL Normal ALB 3.2 LAB L501.2200 8.5-10.1 mg/dL Low CA 8.2 LAB L501.2300 2.5-4.9 mg/dL Normal PHOS 3.8 LAB L501.5300 136-145 mmol/L Normal NA 142 LAB L501.5600 3.5-5.1 mmol/L Normal K 4.2 LAB L501.5900 98-107 mmol/L High CL 110 LAB L501.6100 21.0-32.0 mmol/L Normal CO2 23.0 Performed By: #### L500.3600 #### [facility] [place], [address] CBC-COMPLETE BLOOD CNT Collected: 08/05/2017 Status: F Source: [place] NO DIFF 10:06 AM [facility] [place] TYPE CODE TESTS RESULT OUT OF RANGE REFERENCE UNITS LAB L100.1000 4.4-11.0 K/mm3 Normal WBC 5.2 LAB L100.1200 4.6-6.2 M/mm3 Low RBC 4.09 LAB L100.1300 13.0-16.5 g/dl Low HGB 12.2 LAB L100.1400 40-54 % Low HCT 36.2 LAB L100.1500 80-94 fL Normal MCV 88.5 LAB L100.1600 27.0-32.0 pg Normal MCH 29.8 LAB L100.1700 32-36 g/gl Normal MCHC 33.7 LAB L100.1810 11.6-14.6 % Normal RDW CV 13.4 LAB L100.1820 35.1-43.9 fl Normal RDW SD 42.8 LAB L100.1900 150-450 K/mm3 Normal PLT 197 LAB L100.2000 6.2-12.0 fl High MPV 12.6 Performed By: #### L100.0500 #### [facility] [address] [place], [address] RENAL PROFILE Collected: 08/05/2017 Status: F Source: [place] 10:06 AM [facility] [place] TYPE CODE TESTS RESULT OUT OF RANGE REFERENCE UNITS LAB L501.0100 74-106 mg/dL High GLU 215 Result Comment: Glucose result greater than or equal to 200 mg/dL suggests DIABETES MELLITUS per A.D.A. criteria. Please note revised GLUCOSE reference range effective 2017. LAB L501.1000 7-18 mg/dL High BUN 34 LAB L501.1100 0.70-1.30 mg/dL High CREAT,SERUM 3.58 Result Comment: The validity of the calculated GFR AND GFRAA in patients over 70 years has not been determined. Clinical correlation is essential. LAB L501.1110 >60 mL/min Low EST GFR 19 Result Comment: Non- GFR Calc LAB L501.1115 >60 mL/min Low EST GFR - AA 22 Result Comment: GFR Calc LAB L501.1300 10-20 RATIO Low BUN/CRE 9.5 LAB L501.1800 3.2-5.0 g/dL Low ALB 3.0 LAB L501.2200 8.5-10.1 mg/dL Low CA 8.4 LAB L501.2300 2.5-4.9 mg/dL Normal PHOS 2.8 LAB L501.5300 136-145 mmol/L Normal NA 139 LAB L501.5600 3.5-5.1 mmol/L Normal K 4.3 LAB L501.5900 98-107 mmol/L High CL 109 LAB L501.6100 21.0-32.0 mmol/L Normal CO2 21.0 Performed By: #### L500.3600 #### [facility] [address] [place], [address] PTHIN Collected: 08/05/2017 Status: F Source: [place] 10:06 AM [facility] [place] TYPE CODE TESTS RESULT OUT OF RANGE REFERENCE UNITS LAB L509.1000 18.4-80.1 pg/mL High PTHIN 100.2 Performed By: #### L509.1000 #### [facility] [address] [place], [address] 24 HR UR CREATININE Collected: 08/05/2017 Status: F Source: [place] CLEAR[place] 10:06 AM [facility] [place] Order Comment: PLEASE DO PROTEIN/CREATININE RATION FOR 24HR URINE 24HR URINE COLLECTION TIME 08/04/17 8AM 08/05/17 8AM TYPE CODE TESTS RESULT OUT OF RANGE REFERENCE UNITS LAB L501.0050 24.0 HOURS Normal UR COLLECT 24.0 TIME LAB L501.0075 mL Normal UR TOTAL 1800 VOLUME LAB L501.1050 0.8-1.3 mg/dL High SERUM CREAT 3.6 LAB L501.1110 >60 mL/min Low EST GFR 19 Result Comment: Non- GFR Calc LAB L501.1115 >60 mL/min Low EST GFR - AA 22 Result Comment: GFR Calc LAB L501.1150 NO RANGE mg/dL EST. URINE Normal CREAT 126.0 LAB L501.1250 100-200 ml/min Low CREAT CLEARANCE 44 Performed By: #### L500.4507 #### [facility] [address] [place], [address] PROTEIN, URINE 24HR Collected: 08/05/2017 Status: F Source: [place] 10:06 AM [facility] [place] Order Comment: PLEASE DO PROTEIN/CREATININE RATION FOR 24HR URINE 24HR URINE COLLECTION TIME 08/04/17 8AM 08/05/17 8AM TYPE CODE TESTS RESULT OUT OF RANGE REFERENCE UNITS LAB L501.1850 24.0 HOURS Normal UR COLLECT 24.0 TIME LAB L501.1875 mL Normal UR TOTAL 1800 VOLUME LAB L501.1925 <150 MG/24HR mg/24HR High 24hr UR 8404.2 PROTEIN LAB L501.1900 <11.9 mg/dL High URINE PROTEIN 466.9 Performed By: #### L500.9000 #### [facility] [address] [place], [place], [id number] CBC-COMPLETE BLOOD CNT Collected: 06/01/2017 Status: F Source: [place] NO DIFF 11:31 AM [facility] [place] TYPE CODE TESTS RESULT OUT OF RANGE REFERENCE UNITS LAB L100.1000 4.4-11.0 K/mm3 Normal WBC 5.8 LAB L100.1200 4.6-6.2 M/mm3 Low RBC 4.26 LAB L100.1300 13.0-16.5 g/dl Low HGB 12.4 LAB L100.1400 40-54 % Low HCT 36.6 LAB L100.1500 80-94 fL Normal MCV 85.9 LAB L100.1600 27.0-32.0 pg Normal MCH 29.1 LAB L100.1700 32-36 g/gl Normal MCHC 33.9 LAB L100.1810 11.6-14.6 % Normal RDW CV 13.3 LAB L100.1820 35.1-43.9 fl Normal RDW SD 41.4 LAB L100.1900 150-450 K/mm3 Normal PLT 234 LAB L100.2000 6.2-12.0 fl Normal MPV 11.5 Performed By: #### L100.0500 #### [facility] [address] [place], [place], [address] RENAL PROFILE Collected: 06/01/2017 Status: F Source: [place] 11:31 AM [facility] [place] TYPE CODE TESTS RESULT OUT OF RANGE REFERENCE UNITS LAB L501.0100 74-106 mg/dL Normal GLU 96 Result Comment: Please note revised GLUCOSE reference range effective 2017. LAB L501.1000 7-18 mg/dL High BUN 36 LAB L501.1100 0.70-1.30 mg/dL High CREAT,SERUM 3.26 Result Comment: The validity of the calculated GFR AND GFRAA in patients over 70 years has not been determined. Clinical correlation is essential. LAB L501.1110 >60 mL/min Low EST GFR 21 Result Comment: Non- GFR Calc LAB L501.1115 >60 mL/min Low EST GFR - AA 25 Result Comment: GFR Calc LAB L501.1300 10-20 RATIO Normal BUN/CRE 11.0 LAB L501.1800 3.2-5.0 g/dL Normal ALB 3.4 LAB L501.2200 8.5-10.1 mg/dL CA Normal 8.6 LAB L501.2300 2.5-4.9 mg/dL Normal PHOS 2.9 LAB L501.5300 136-145 mmol/L NA Normal 141 LAB L501.5600 3.5-5.1 mmol/L K Normal 4.0 LAB L501.5900 98-107 mmol/L High CL 111 LAB L501.6100 21.0-32.0 mmol/L Normal CO2 22.0 Performed By: #### L500.3600 #### [facility] [address] [facility] [place], [place], [address] PTHIN Collected: 06/01/2017 Status: F Source: [place] 11:31 [facility] [place] REPOSITORY TYPE CODE TESTS RESULT OUT OF RANGE REFERENCE UNITS LAB L509.1000 18.4-80.1 pg/mL High PTHIN 153.1 Result Comment: Please Note: PTH INTACT METHOD AND REFERENCE RANGE CHANGE Effective 01/26/2017. Performed By: #### L509.1000 #### [facility] [address] [facility] [place], [place], [address] VITAMIN D,25 HYDROXY Collected: 06/01/2017 Status: F Source: [place] 11:31 [facility] [place] REPOSITORY TYPE CODE TESTS RESULT OUT OF REFERENCE UNITS RANGE LAB L506.1000 29.95-100.01 ng/mL Low Vitamin D 24.5 25-OH Result Comment: Vitamin D 25(OH) Status Range Deficiency <20 ng/mL (50nmol/L) Insuffciency 20 - 30 ng/mL (50 - 75 nmol/L) Sufficiency 30 - 100 ng/mL (75 - 250 nmol/L) Toxicity >100 ng/mL (>250 nmol/L) Performed By: #### L506.1000 #### [facility] [address] [facility] [address] [place], [place], [address] CBC-COMPLETE BLOOD CNT Collected: 04/25/2017 Status: F Source: [place] NO DIFF 3:27 PM [facility] [place] TYPE CODE TESTS RESULT OUT OF RANGE REFERENCE UNITS LAB L100.1000 4.4-11.0 K/mm3 Normal WBC 5.6 LAB L100.1200 4.6-6.2 M/mm3 Low RBC 4.30 LAB L100.1300 13.0-16.5 g/dl Low HGB 12.1 LAB L100.1400 40-54 % Low HCT 37.6 LAB L100.1500 80-94 fL Normal MCV 87.4 LAB L100.1600 27.0-32.0 pg Normal MCH 28.1 LAB L100.1700 32-36 g/gl Normal MCHC 32.2 LAB L100.1810 11.6-14.6 % Normal RDW CV 13.7 LAB L100.1820 35.1-43.9 fl Normal RDW SD 43.6 LAB L100.1900 150-450 K/mm3 Normal PLT 238 LAB L100.2000 6.2-12.0 fl Normal MPV 11.6 Performed By: #### L100.0500 #### [facility] [id number] [place], [address] RENAL PROFILE Collected: 04/25/2017 Status: F Source: [place] 3:27 PM [facility] [place] TYPE CODE TESTS RESULT OUT OF RANGE REFERENCE UNITS LAB L501.0100 74-106 mg/dL High GLU 126 Result Comment: Fasting Glucose result greater than or equal to 126 mg/dL suggests DIABETES MELLITUS per A.D.A. criteria. Please note revised GLUCOSE reference range effective 2017. LAB L501.1000 7-18 mg/dL High BUN 36 LAB L501.1100 0.70-1.30 mg/dL High CREAT,SERUM 3.27 Result Comment: The validity of the calculated GFR AND GFRAA in patients over 70 years has not been determined. Clinical correlation is essential. LAB L501.1110 >60 mL/min Low EST GFR 21 Result Comment: Non- GFR Calc LAB L501.1115 >60 mL/min Low EST GFR - AA 25 Result Comment: GFR Calc LAB L501.1300 10-20 RATIO Normal BUN/CRE 11.0 LAB L501.1800 3.2-5.0 g/dL Low ALB 3.0 LAB L501.2200 8.5-10.1 mg/dL CA Normal 8.5 LAB L501.2300 2.5-4.9 mg/dL Normal PHOS 4.2 LAB L501.5300 136-145 mmol/L NA Normal 137 LAB L501.5600 3.5-5.1 mmol/L K Normal 4.0 LAB L501.5900 98-107 mmol/L CL Normal 106 LAB L501.6100 21.0-32.0 mmol/L Normal CO2 22.0 Performed By: #### L500.3600 #### [facility] [address] [place], [address] BIOPSY/INJ OR NEEDLE Observed: 04/14/2017 Status: F Source: [place] PLACEMENT 7:45 AM [facility] Imaging Services [address] [place] [address] Biopsy/Inj or Needle Placement MR#: [id number] Acct: [id number] Name: JESSI ACOSTA Rep #: [id number] : 1955 M 61 From: Jeremie Hess MD PCP: Anupam Daily MD Status: REG CLI Study: Biopsy/Inj or Needle Placement Date of Exam: 04/14/17 Exam# [id number] Ordering Dr: Lelia Hinojosa DO PROCEDURE: CT GUIDED PERCUTANEOUS KIDNEY BIOPSY. DATE: April 14, 2017. INDICATION: Male, 61 years old. Proteinuria. PHYSICIAN: Jeremie Hess M.D. MEDICATIONS: 2 mg of Versed and 50 mcg of fentanyl intravenously. Conscious sedation protocol was followed. Conscious sedation was started at 9:23 AM and terminated at 9:30 AM. The patient was monitored independently by the department nurse. ACCESS SITE: Lower pole of the left kidney. NEEDLE: 18-gauge core biopsy needle. SPECIMEN: 4 18-gauge core. EBL: None. COMPLICATIONS: None immediate. RADIATION DOSAGE (If Supplied By Facility): CTDIvol = ( 16 ) mGy, DLP = ( 735.61 ) mGycm. Individualized dose reduction techniques were utilized. The risks, benefits, and alternatives to the procedure and sedation were explained to the patient. The specific risk of hemorrhage requiring further treatment or intervention was detailed and accepted. Written informed consent was obtained. The patient was placed on the CT table in the prone position. Multiple axial images were obtained from the lung base through the caudal extent of the kidneys. An appropriate entry site was identified and a dian made on the skin. The skin overlying the [left ] posterior flank was prepped and draped in sterile fashion. 1% lidocaine was administered subcutaneously for local anesthesia. Initially, a 22 gauge needle was advanced and CT images confirmed good needle position. The 22 gauge needle was then exchanged for an 17 gauge introducer needle which was advanced. Repeat CT images confirmed good needle trajectory and tip position. The introducer needle was then advanced into the periphery of the inferior renal pole, and CT images were again obtained to confirm exact tip location. The inner stylet of the introducer needle was then removed and an 18 gauge coaxial needle was advanced thru the introducer needle and biopsy performed. A total of [4 ] passes were performed and the specimen collected was sent to Pathology for further evaluation. The needle was withdrawn. Hemostasis was achieved with manual compression and a sterile dressing was applied. Repeat CT images of the biopsy area was performed which demonstrated no gross bleeding or hematoma. The patient tolerated the procedure well without immediate complications. The patient was transported to the [floor/recovery area] in stable condition. CT/Biopsy/Inj or Needle Placement IMPRESSION: Successful CT guided percutaneous kidney biopsy. Electronically Signed: Jeremie Hess MD at 10:00 EST Tel [phone], Service support , CC: Lelia Hinojosa DO; Anupam Daily MD Director Of Content Marketing: Signed KIDNEY PARTIAL/TOTAL Observed: 04/14/2017 Status: F Source: [place] NEPHRECT 12:00 AM [facility] Patient: JESSI ACOSTA : 1955 (61/M) Acct Num: [id number] Phys: Lelia Hinojosa DO Unit Num: [id number] Loc: CT Specimen: [id number] Received: 04/14/171032 Spec Type: KIDNEY TISSUES TISSUES: Kidney, NOS COMMENT There is arterionephrosclerosis and perihilar segmental sclerosis with a large number of totally sclerotic glomeruli 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 There are moderate chronic tubulointerstitial changes. GROSS DESCRIPTION The specimen is sent entirely to [facility] for diagnosis. The specimen is received in transport medium and consists of four cores of suárez renal tissue 1.7 to 1.3 cm in length. The cores are divided for histology, immunofluorescence and electron microscopy. HEADER OPERATION: CT-guided kidney biopsy - left PRE-OP DIAGNOSIS: Proteinuria TISSUE SUBMITTED: 18g core x4, left kidney MICROSCOPIC DESCRIPTION Sections are examined with H AND E, PAS, Yeung and trichrome stains. Controls for the special stains are appropriate. There are 28 glomeruli present. 14 show total glomerulosclerosis, 2 glomeruli show perihilar segmental glomerulosclerosis. The remainder glomeruli show mesangial sclerosis and thickened vascular poles. There is no glomerulitis and no acellular mesangial nodules suggestive of K-W nodules are evident. There are foci of tubular atrophy and there is moderate interstitial fibrosis. There are scattered interstitial lymphocytes but no significant eosinophils. Arterioles show medial thickening. No fibrinoid change or arteritis is defined. IMMUNOFLUORESCENCE: There are 8 glomeruli present. 4 glomeruli are sclerotic. There is no glomerular staining to suggest specific deposition of immunoglobulins (IgG, IgA or IgM), complement components (C3 or C1q) or light chains (kappa or lambda). There are some albumin droplets in tubular cells consistent with proteinuria. There is no increase in glomerular fibrin deposition. ELECTRON MICROSCOPY: There are 4 glomeruli present. 2 glomeruli are sclerotic , demonstrating only stacks of collapsed basement membranes. In the preserved glomeruli, mesangia show increased matrix but no discrete deposits. The glomerular capillary loops show slightly thickened capillary basement membranes. There is mild to moderate epithelial cell foot process effacement. There are no electron dense deposits in glomerular capillary loops. Tubular basement membranes show no deposits. MICROSCOPIC DIAGNOSIS Renal biopsy with arterionephrosclerosis, approximately 50% global glomerulosclerosis, focal perihilar segmental sclerosis and chronic tubulointerstitial changes. Signed John Vigil 04/25/17 <signature on file> Performed By: #### PKID #### [facility] [address] [place], [address] CBC-COMPLETE BLOOD CNT Collected: 04/04/2017 Status: F Source: [place] NO DIFF 3:40 PM [facility] TYPE CODE TESTS RESULT OUT OF RANGE REFERENCE UNITS LAB L100.1000 4.4-11.0 K/mm3 Normal WBC 5.6 LAB L100.1200 4.6-6.2 M/mm3 Low RBC 4.31 LAB L100.1300 13.0-16.5 g/dl Low HGB 12.2 LAB L100.1400 40-54 % Low HCT 37.4 LAB L100.1500 80-94 fL Normal MCV 86.8 LAB L100.1600 27.0-32.0 pg Normal MCH 28.3 LAB L100.1700 32-36 g/gl Normal MCHC 32.6 LAB L100.1810 11.6-14.6 % Normal RDW CV 13.6 LAB L100.1820 35.1-43.9 fl Normal RDW SD 43.6 LAB L100.1900 150-450 K/mm3 Normal PLT 225 LAB L100.2000 6.2-12.0 fl Normal MPV 11.3 Performed By: #### L100.0500 #### [facility] [address] [place], [place], [address] PROTHROMBIN TIME W/INR Collected: 04/04/2017 Status: F Source: [place] 3:40 PM [facility]POSIT[facility] TYPE CODE TESTS RESULT OUT OF RANGE REFERENCE UNITS LAB L300.4150 11.7-14.9 SECONDS Normal PROTIME 12.8 LAB L300.4200 Normal INR 1.0 Performed By: #### L300.3900, L300.4310 #### [facility] [address] [facility] [place], [place], [address] PARTIAL THROMBOPLAST Collected: 04/04/2017 Status: F Source: [place] TIME 3:40 PM [facility]POSIT[facility] TYPE CODE TESTS RESULT OUT OF RANGE REFERENCE UNITS LAB L300.4310 24.1-36.2 Seconds Normal PTT 29.0 Performed By: #### L300.3900, L300.4310 #### [facility] [address] [place], [address] RENAL PROFILE Collected: 03/29/2017 Status: F Source: [place] 12:09 PM [facility]POSIT[facility] TYPE CODE TESTS RESULT OUT OF RANGE REFERENCE UNITS LAB L501.0100 74-106 mg/dL High GLU 182 Result Comment: Fasting Glucose result greater than or equal to 126 mg/dL suggests DIABETES MELLITUS per A.D.A. criteria. Please note revised GLUCOSE reference range effective 2017. LAB L501.1000 7-18 mg/dL High BUN 28 LAB L501.1100 0.70-1.30 mg/dL High CREAT,SERUM 2.97 Result Comment: The validity of the calculated GFR AND GFRAA in patients over 70 years has not been determined. Clinical correlation is essential. LAB L501.1110 >60 mL/min Low EST GFR 23 Result Comment: Non- GFR Calc LAB L501.1115 >60 mL/min Low EST GFR - AA 28 Result Comment: GFR Calc LAB L501.1300 10-20 RATIO Low BUN/CRE 9.4 LAB L501.1800 3.2-5.0 g/dL Normal ALB 3.2 LAB L501.2200 8.5-10.1 mg/dL Normal CA 8.6 LAB L501.2300 2.5-4.9 mg/dL Normal PHOS 2.7 LAB L501.5300 136-145 mmol/L Normal NA 138 LAB L501.5600 3.5-5.1 mmol/L Normal K 4.2 LAB L501.5900 98-107 mmol/L High CL 108 LAB L501.6100 21.0-32.0 mmol/L Normal CO2 23.0 Performed By: #### L500.3600 #### [facility] [address] [place], [address] CBC W/DIFF, AUTOMATED Collected: 03/23/2017 Status: F Source: [place] 8:28 AM [facility]POS[facility] TYPE CODE TESTS RESULT OUT OF RANGE REFERENCE UNITS LAB L100.1000 4.4-11.0 K/mm3 Normal WBC 5.3 LAB L100.1200 4.6-6.2 M/mm3 Low RBC 4.53 LAB L100.1300 13.0-16.5 g/dl Normal HGB 13.1 LAB L100.1400 40-54 % Low HCT 39.6 LAB L100.1500 80-94 fL Normal MCV 87.4 LAB L100.1600 27.0-32.0 pg Normal MCH 28.9 LAB L100.1700 32-36 g/gl Normal MCHC 33.1 LAB L100.1810 11.6-14.6 % Normal RDW CV 13.5 LAB L100.1820 35.1-43.9 fl Normal RDW SD 42.0 LAB L100.1900 150-450 K/mm3 Normal PLT 199 LAB L100.2000 6.2-12.0 fl High MPV 12.3 LAB L100.2100 47-70 % Normal NEUT% 60.8 LAB L100.2200 19-41 % Normal LY% 31.1 LAB L100.2300 0-10 % Normal MONO% 6.0 LAB L100.2400 0-5 % Normal EO% 1.1 LAB L100.2500 0-1 % Normal BASO% 0.8 LAB L100.2550 0.0-0.9 % Normal IM GRAN % 0.200 Result Comment: IG% - Immature Granulocytes (promyelocytes, myelocytes and metamyelocytes) > 1% indicates that a LEFT SHIFT is Present. LAB L100.2620 2.0-7.7 X10 3/uL Normal Absolute Neut 3.2 LAB L100.2720 0.83-4.51 X10 3/ul Normal Absolute Lymph 1.65 Performed By: #### L100.0100 #### [facility] [address] [place], [place], [address] PTHIN Collected: 03/23/2017 Status: F Source: [place] 8:28 AM [facility]POSIT[facility] TYPE CODE TESTS RESULT OUT OF RANGE REFERENCE UNITS LAB L509.1000 18.4-80.1 pg/mL High PTHIN 85.8 Result Comment: Please Note: PTH INTACT METHOD AND REFERENCE RANGE CHANGE Effective 01/26/2017. Performed By: #### L509.1000 #### [facility] [address] [place], [address] ALLERGIES ALLERGIES DATE TYPE / CODE NAME / CODE REACTION SEVERITY SOURCE 04/14/2017 Drug No Known Unknown [facility] Allergy/4160 Allergies/F00 Hospital 36273(SNOMED 0424498(RXNOR Repository CT) M) ENCOUNTERS ENCOUNTERS ADMIT/DISCHARGE ACCOUNT ADMITTING ENCOUNTER LOCATION SOURCE NUMBER CLASS 02/27/2018 [id number] Ambulatory [place] [facility] 1 [facility] Hospital ing:MFPLAB Repository 01/23/2018 [id number] Ambulatory [place] 1 [facility] Hospital ing:MFPLAB Repository 12/26/2017 [id number] Ambulatory [place] 1 [facility] Hospital ing:MFPLAB Repository 11/09/2017 [id number] Ambulatory [place] 3 [facility] Hospital ing:MFPLAB Repository 10/18/2017 [id number] Ambulatory [place] 1 [facility] Hospital ing:LAB.FUTUR Repository E 08/05/2017 [id number] Ambulatory [place] 4 [facility] Hospital ing:MFPLAB Repository 06/10/2017 [id number] Ambulatory [place] 6 [facility] Hospital ing:LAB.FUTUR Repository E 06/01/2017 [id number] Ambulatory [place]irt 9 [facility] Hospital ing:MFPLAB Repository 05/30/2017 [id number] Ambulatory [place] 9 [facility] Hospital ing:LAB.FUTUR Repository E 04/25/2017 [id number] Ambulatory [place] 0 [facility] Hospital ing:LAB.FUTUR Repository E 04/14/2017 [id number] Ambulatory [place]irt 6 [facility] Hospital ing:CT Repository 04/04/2017 [id number] Ambulatory [place]irt 9 [facility] Hospital ing:MFPLAB Repository 04/04/2017 [id number] Ambulatory [place] 9 [facility] Hospital ing:LAB.FUTUR Repository E 03/29/2017 [id number] Ambulatory [place]irt 4 [facility] Hospital ing:POLAB3 Repository 03/23/2017 [id number] Ambulatory [place]irt 0 [facility] Hospital ing:MFPLAB Repository PAYERS PAYERS ENCOUNTER GUARANTOR PAYER SUBSCRIBER SOURCE 02/27/2018 JESSI Sargent [place] [id number] Insurance:ANTHEMPolic GASK[place]OB: [place]: [id number] [id number] Repository [address]Djh: (330) Date:6593-28-11UZ [address] () [address]305[address]YENAMZD, [place] [address]NE: 02/27/2018 Secondary NOT GIVENUNK [place] Insurance:SELF PAY [facility] Number: Effective Repository Date:2018-02-27 01/23/2018 JESSI Sargent Primary JESSI Schuster [id number] Insurance:ANTHEMPolic GASKINDOB: [place] Number: [id number], [place] [id number] Repository [address]Vmi: (330) Date:7192-17-78SN [address] () [id number], [place] [address]AF: 01/23/2018 Secondary NOT GIVENUNK [place] Insurance:SELF PAY [facility] Number: Effective Repository Date:2018-01-23 12/26/2017 JESSI Sargent Primary JESSI Schuster [id number] Insurance:ANTHEMPolic [place]OB: [place] Number: [id number] [id number] Repository 118[address]Zlp: (330) Date:6413-82-38LF [address] () [address]NSJPPAW, [place] [address]YA: 12/26/2017 Secondary NOT GIVENUNK [place] Insurance:SELF PAY [facility] Number: Effective Repository Date:2017-12-26 11/09/2017 JESSI Sargent Primary JESSI Schuster [id number] Insurance:ANTHEMPolic [place]OB: [place] Number: [id number], [place] [id number] Repository [address]Mbh: (330) Date:9384-87-81CS [address] () VENKAT MUELLER [address]WK: 11/09/2017 Secondary NOT GIVENUNK [place] Insurance:SELF PAY [facility] Number: Effective Repository Date:2017-11-09 10/18/2017 JESSI [place] [id number] Insurance:ANTHEMPolic [place]OB: [place] Number: [id number], [place] [id number] Repository [address]Dsi: (330) Date:9121-40-34PF [address] () [id number] MIRELES [address]OQ: 10/18/2017 Secondary NOT GIVENUNK [place] Insurance:SELF PAY [facility] Number: Effective Repository Date:2017-10-18 08/05/2017 JESSI Sargent [place] [id number] Insurance:ANTHEMPolic [place]OB: [place] Number: [id number], [place] [id number] Repository [address]Bkj: (330) Date:5454-24-92GP [address] () [id number] MIRELES [address]VG: 08/05/2017 Secondary NOT GIVENUNK [place] Insurance:SELF PAY [facility] Number: Effective Repository Date:2017-08-05 06/10/2017 JESSI Sargent Primary JESSI [place] [id number] Insurance:ANTHEMPolic [place]OB: [place] Number: [id number], [place] [id number] Repository [address]Fik: (330) Date:2237-27-63GP [address] () [id number] MIRELES [address]AL: 06/10/2017 Secondary NOT GIVENUNK [place] Insurance:SELF PAY [facility] Number: Effective Repository Date:2017-06-10 06/01/2017 JESSI Sargent Primary JESSI [place] [id number] Insurance:ANTHEMPolic [place]: [place] Number: [id number], [place] [id number] Repository [address]Yvl: (330) Date:6852-56-95DJ [address] () [id number] MIRELES [address]ZE: 06/01/2017 Secondary NOT GIVENUNK [place] Insurance:SELF PAY [facility] Number: Effective Repository Date:2017-06-01 05/30/2017 JESSI T Primary JESSI Sargent [place] [id number] Insurance:ANTHEMPolic [place]OB: [place] Number: [id number], [place] [id number] Repository [address]Nbg: (330) Date:5471-40-16ZR [address] () VENKAT MUELLER [address]VD: 05/30/2017 Secondary NOT GIVENUNK [place] Insurance:SELF PAY [facility] Number: Effective Repository Date:2017-05-30 04/25/2017 JESSI T Primary JESSI T [place] [id number] Insurance:ANTHEMPolic [place]: [place] Number: [id number], [place] [id number] Repository [address]Tbn: (330) Date:2247-37-51XL [address] () 883[address]CVJITVP, [place] [address]HX: 04/25/2017 Secondary NOT GIVENUNK [place] Insurance:SELF PAY [facility] Number: Effective Repository Date:2017-04-06 04/14/2017 JESSI T Primary JESSI Sargent [place] [id number] Insurance:ANTHEMPolic [place]: [place] Number: [id number], [place] [id number] Repository 78[address]Atc: (330) Date:7341TT [address] () 538489IECGFDJ, [place] [address]IB: 04/14/2017 Secondary NOT GIVENUNK [place] Insurance:SELF PAY [facility] Number: Effective Repository Date:2017-03-29 04/04/2017 JESSI Primary JESSI Schuster [id number] Insurance:ANTHEMPolic [place]OB: [place] Number: [id number], [place] [id number] Repository [address]59[address]Ebv: (330) Date:8195-14-36OJ [address] () [id number] MIRELES [address]IN: 04/04/2017 Secondary NOT GIVENUNK [place] Insurance:SELF PAY [facility] Number: Effective Repository Date:2017-04-04 04/04/2017 JESSI Primary JESSI Schuster [id number] Insurance:ANTHEMPolic [place]: [place] Number: [id number], [place] [id number] Repository [address]Vjw: (330) Date:8653-84-91JI [address] () [id number] MIRELES [address]FB: 04/04/2017 Secondary NOT GIVENUNK [place] Insurance:SELF PAY [facility] Number: Effective Repository Date:2017-04-04 03/29/2017 JESSI Primary JESSI Schuster [id number] Insurance:ANTHEMPolic [place]: [place] Number: [id number], [place] [id number] Repository [address]Gwe: (330) Date:0613-96-60CY [address] () 224449QPJXHGGVENKAT MIRELES 72012FB: 03/29/2017 Secondary NOT GIVENUNK [place] Insurance:SELF PAY [facility] Number: Effective Repository Date:2017-03-29 03/23/2017 JESSI Primary JESSI Schuster [id number] Insurance:ANTHEMPolic [place]OB: [place] Number: [id number], [place] [id number] Repository [address]Yki: (330) Date:2150-20-53VY [address] () VENKAT MUELLER [address]BT: 03/23/2017 Secondary NOT GIVENUNK [place] Insurance:SELF PAY [facility] Effective Repository Date:2017-03-23
== END ==
PROVIDERS: Family Provider Family Medicine; PCP Family Medicine; Visit Provider Internal Medicine Nephrology
DX: N18.3 Chronic kidney disease, stage 3 (moderate) (principal); N25.81 Secondary hyperparathyroidism of renal origin; D63.1 Anemia in chronic kidney disease
CPT/HCPCS: 36415; 80069; 82575; 83970; 84156; 85027

== ENCOUNTER → 2018-02-27 13:45 | Outpatient (CLI) | payer BC, SELFPAY ==
[2018-02-27 16:01] LABS: Hematocrit 37.4 % (40-54); Hemoglobin 12.2 g/dl (13.0-16.5); Mean Corp Hgb Conc 32.6 g/gl (32-36); Mean Platelet Vol. 12.8 fl (6.2-12.0); Platelet Count 188 K/mm3 (150-450); RBC Distribution Width CV 13.5 % (11.6-14.6); RBC Distribution Width SD 43.4 fl (35.1-43.9); White Blood Count 5.5 K/mm3 (4.4-11.0)
[2018-02-27 16:02] LABS: Scan Indicated on CBC? Y/N NO
[2018-02-27 16:35] LABS: Albumin, Serum 3.4 g/dL (3.2-5.0); BUN 53 mg/dL (7-18); BUN/Creat Ratio 9.2 RATIO (10-20); Calcium,Total 8.5 mg/dL (8.5-10.1); Chloride 111 mmol/L (98-107); Creatinine, Serum 5.78 mg/dL (0.70-1.30); EST Glomerular Filtration Rate 11 mL/min (>60); Est Glom Filt Rate - Afr Amer 13 mL/min (>60); Ferritin 269 ng/mL (26-388); Glucose 53 mg/dL (74-106); Iron 83 ug/dL (65-175); Iron Binding Capacity,Total 273 ug/dL (250-450); Phosphorus 3.8 mg/dL (2.5-4.9); Potassium 4.7 mmol/L (3.5-5.1); Sodium Level 142 mmol/L (136-145)
[2018-02-27 16:51] LABS: Vitamin D,25 Hydroxy 18.7 ng/mL (29.95-100.01)
[2018-02-27 16:52] LABS: PTHIN 245.2 pg/mL (18.4-80.1)
--- OUTSIDE RECORDS SUMMARY | 2018-05-02 01:53 | XMS RPT_ITS ---
:1955 Author Organization OHIP Support Name Relationship Address Phone YANELY ACOSTA Unavailable [address] + [place] [address] [employer] Unavailable [address] +[place] [address] DAVE, YANELY Unavailable [address] + [place] [address] [employer] Unavailable [address] +[place] [address] DAVE, YANELY Unavailable [address] + [place] [address] [employer] Unavailable [address] +[place] [address] DAVE, YANELY Unavailable [address] + [place] [address] [employer] Unavailable [address] +[place] [address] DAVE, YANELY Unavailable [address] + [place] [address] [employer] Unavailable [address] +[place] [address] DAVE, YANELY Unavailable [address] + [place] [address] [employer] Unavailable [address] +[place] [address] DAVE, YANELY Unavailable [address] + [place] [address] [employer] Unavailable [address] +[place] [address] DAVE, YANELY Unavailable [address] + [place] [address] [employer] Unavailable [address] +[place] [address] DAVE, YANELY Unavailable [address] + [place] [address] [employer] Unavailable [address] +[place] [address] DAVE, YANELY Unavailable [address] + [place] [address] [employer] Unavailable [address] +[place] [address] DAVE, YANELY Unavailable [address] + [place] [address] [employer] Unavailable [address] +[place] [address] DAVE, YANELY Unavailable [address] + [place] [address] [employer] Unavailable [address] +[place] [address] DAVE, YANELY Unavailable [address] + [place] [address] [employer] Unavailable [address] +[place] [address] DAVE, YANELY Unavailable [address] + [place] [address] [employer] Unavailable [address] +[place] [address] DAVE, YANELY Unavailable [address] + [place] [address] [employer] Unavailable [address] +[place] [address] Care Team Providers Name Role Phone Lelia [...] E55.9 - Vitamin D Anupam Daily Active [place] deficiency, Community unspecified / Hospital E55.9(ICD-10) Repository 04/14/2017 Unknown R80.9 - Lelia Hinojosa Active [place] Proteinuria, Community unspecified / Hospital R80.9(ICD-10) Repository PROCEDURES PROCEDURES No Procedure Records FoundRESULTS RESULTS CBC-COMPLETE BLOOD CNT Collected: 02/27/2018 Status: F Source: [place] NO DIFF 1:46 PM [facility] REPOSITORY TYPE CODE TESTS RESULT OUT OF [...] MPV 12.8 Performed By: #### L100.0500 #### [facility] [address] [place], [place], [address] RENAL PROFILE Collected: 02/27/2018 Status: F Source: [place] 1:46 PM [facility] REPOSITORY TYPE CODE TESTS RESULT OUT OF [...] By: #### L500.3600, L503.6075, L503.6150, L503.6550 #### [facility] [address] [place], [place], [id number] IRON BINDING Collected: 02/27/2018 Status: F Source: [facility],TOTAL 1:46 PM [facility] REPOSITORY TYPE CODE TESTS RESULT OUT OF RANGE REFERENCE UNITS LAB L503.6075 250-450 ug/dL Normal TIBC 273 Performed By: #### L500.3600, L503.6075, L503.6150, L503.6550 #### [facility] [address] [facility]. [place], [place], [address] IRON Collected: 02/27/2018 Status: F Source: [place] 1:46 PM [facility] REPOSITORY TYPE CODE TESTS RESULT OUT OF RANGE REFERENCE UNITS LAB L503.6150 65-175 ug/dL Normal IRON 83 Performed By: #### L500.3600, L503.6075, L503.6150, L503.6550 #### [facility] [address] [place], [address] FERRITIN Collected: 02/27/2018 Status: F Source: [place] 1:46 PM [facility] REPOSITORY TYPE CODE TESTS RESULT OUT OF RANGE REFERENCE UNITS LAB L503.6550 26-388 ng/mL Normal FERRITIN 269 Performed By: #### L500.3600, L503.6075, L503.6150, L503.6550 #### [facility] [address] [place], [address] VITAMIN D,25 HYDROXY Collected: 02/27/2018 Status: F Source: [place] 1:46 PM [facility] REPOSITORY TYPE CODE TESTS RESULT OUT OF REFERENCE UNITS RANGE LAB L506.1000 29.95-100.01 ng/mL Low Vitamin D 18.7 25-OH Result Comment: Vitamin D 25(OH) Status Range Deficiency <20 ng/mL (50nmol/L) Insuffciency 20 - 30 ng/mL (50 - 75 nmol/L) Sufficiency 30 - 100 ng/mL (75 - 250 nmol/L) Toxicity >100 ng/mL (>250 nmol/L) Performed By: #### L506.1000 #### [facility] [address] [facility] [place], [address] PTHIN Collected: 02/27/2018 Status: F Source: [place] 1:46 PM [facility] REPOSITORY TYPE CODE TESTS RESULT OUT OF RANGE REFERENCE UNITS LAB L509.1000 18.4-80.1 pg/mL High PTHIN 245.2 Performed By: #### L509.1000 #### [facility] [address] [place], [address] CBC-COMPLETE BLOOD CNT Collected: 01/23/2018 Status: F Source: [place] NO DIFF 8:36 AM [facility] REPOSITORY TYPE CODE TESTS RESULT OUT OF [...] MPV 11.7 Performed By: #### L100.0500 #### [facility] [address] [place], [address] RENAL PROFILE Collected: 01/23/2018 Status: F Source: [place] 8:36 AM [facility] REPOSITORY TYPE CODE TESTS RESULT OUT OF [...] CO2 23.0 Performed By: #### L500.3600 #### [facility] [address] [place], [address] PTHIN Collected: 01/23/2018 Status: F Source: [place] 8:36 AM [facility] REPOSITORY TYPE CODE TESTS RESULT OUT OF RANGE REFERENCE UNITS LAB L509.1000 18.4-80.1 pg/mL High PTHIN 293.8 Performed By: #### L509.1000 #### [facility] [address] [place], [address] 24 HR UR CREATININE Collected: 01/23/2018 Status: F Source: [place] CLEARANCE 8:36 AM [facility] REPOSITORY TYPE CODE TESTS RESULT OUT OF [...] CLEARANCE 26 Performed By: #### L500.4507 #### [facility] [address] [place], [address] PROTEIN, URINE 24HR Collected: 01/23/2018 Status: C Source: [place] 8:36 AM [facility] REPOSITORY TYPE CODE TESTS RESULT OUT OF [...] PROTEIN 531.8 Performed By: #### L500.9000 #### [facility] [address] [place], [place], [address] BASIC METABOLIC Collected: 12/26/2017 Status: F Source: [place] PROFILE (BMP) 8:43 AM [facility] REPOSITORY TYPE CODE TESTS RESULT OUT OF [...] Performed By: #### L500.2500, L500.3400, L500.4100 #### [facility] [address] [place], [place], [address] LIVER PROFILE Collected: 12/26/2017 Status: F Source: [place] 8:43 AM [facility] REPOSITORY TYPE CODE TESTS RESULT OUT OF [...] Performed By: #### L500.2500, L500.3400, L500.4100 #### [facility] [address] [facility] [address] [place], [place], [address] LIPID PROFILE Collected: 12/26/2017 Status: F Source: [place] 8:43 AM [facility] REPOSITORY TYPE CODE TESTS RESULT OUT OF [...] Performed By: #### L500.2500, L500.3400, L500.4100 #### [facility] [address] [place], [address] RENAL PROFILE Collected: 11/09/2017 Status: F Source: [place] 3:39 PM [facility] REPOSITORY TYPE CODE TESTS RESULT OUT OF [...] CO2 23.0 Performed By: #### L500.3600 #### [facility] [place], [address] CBC-COMPLETE BLOOD CNT Collected: 08/05/2017 Status: F Source: [place] NO DIFF 10:06 AM [facility] REPOSITORY TYPE CODE TESTS RESULT OUT OF [...] MPV 12.6 Performed By: #### L100.0500 #### [facility] [address] [place], [address] RENAL PROFILE Collected: 08/05/2017 Status: F Source: [place] 10:06 AM [facility] REPOSITORY TYPE CODE TESTS RESULT OUT OF [...] CO2 21.0 Performed By: #### L500.3600 #### [facility] [address] [place], [address] PTHIN Collected: 08/05/2017 Status: F Source: [place] 10:06 AM [facility] REPOSITORY TYPE CODE TESTS RESULT OUT OF RANGE REFERENCE UNITS LAB L509.1000 18.4-80.1 pg/mL High PTHIN 100.2 Performed By: #### L509.1000 #### [facility] [address] [place], [address] 24 HR UR CREATININE Collected: 08/05/2017 Status: F Source: [place] CLEARANCE 10:06 AM [facility] REPOSITORY Order Comment: PLEASE DO PROTEIN/CREATININE RATION [...] CLEARANCE 44 Performed By: #### L500.4507 #### [facility] [address] [place], [address] PROTEIN, URINE 24HR Collected: 08/05/2017 Status: F Source: [place] 10:06 AM [facility] REPOSITORY Order Comment: PLEASE DO PROTEIN/CREATININE RATION [...] PROTEIN 466.9 Performed By: #### L500.9000 #### [facility] [address] [place], [place], [id number] CBC-COMPLETE BLOOD CNT Collected: 06/01/2017 Status: F Source: [place] NO DIFF 11:31 AM [facility] REPOSITORY TYPE CODE TESTS RESULT OUT OF [...] MPV 11.5 Performed By: #### L100.0500 #### [facility] [address] [place], [place], [address] RENAL PROFILE Collected: 06/01/2017 Status: F Source: [place] 11:31 AM [facility] REPOSITORY TYPE CODE TESTS RESULT OUT OF [...] CO2 22.0 Performed By: #### L500.3600 #### [facility] [address] [facility]. [place], [place], [address] PTHIN Collected: 06/01/2017 Status: F Source: [place] 11:31 [facility] [place] TYPE CODE TESTS RESULT OUT OF RANGE REFERENCE UNITS LAB L509.1000 18.4-80.1 pg/mL High PTHIN 153.1 Result Comment: Please Note: PTH INTACT METHOD AND REFERENCE RANGE CHANGE Effective 01/26/2017. Performed By: #### L509.1000 #### [facility] [address] [facility] [place], [place], [address] VITAMIN D,25 HYDROXY Collected: 06/01/2017 Status: F Source: [place] 11:31 [facility] [place] TYPE CODE TESTS RESULT OUT OF REFERENCE UNITS RANGE LAB L506.1000 29.95-100.01 ng/mL Low Vitamin D 24.5 25-OH Result Comment: Vitamin D 25(OH) Status Range Deficiency <20 ng/mL (50nmol/L) Insuffciency 20 - 30 ng/mL (50 - 75 nmol/L) Sufficiency 30 - 100 ng/mL (75 - 250 nmol/L) Toxicity >100 ng/mL (>250 nmol/L) Performed By: #### L506.1000 #### [facility] [address] [facility] [place], [place], [address] CBC-COMPLETE BLOOD CNT Collected: 04/25/2017 Status: F Source: [place] NO DIFF 3:27 PM [facility] REPOSITORY TYPE CODE TESTS RESULT OUT OF [...] MPV 11.6 Performed By: #### L100.0500 #### [facility] [address] [place], [address] RENAL PROFILE Collected: 04/25/2017 Status: F Source: [place] 3:27 PM [facility] REPOSITORY TYPE CODE TESTS RESULT OUT OF [...] CO2 22.0 Performed By: #### L500.3600 #### [facility] [address] [facility] [place] [place], [address] BIOPSY/INJ OR NEEDLE Observed: 04/14/2017 Status: F Source: [place] PLACEMENT 7:45 AM [facility] REPOSITORY [facility] [address] [place] [address] Biopsy/Inj or Needle Placement MR#: [id number] Acct: [id number] Name: JESSI ACOSTA Rep #: [id number] : 1955 M 61 From: Jeremie Hess MD PCP: Anupam Daily MD Status: REG CLI Study: Biopsy/Inj or Needle Placement Date of Exam: 04/14/17 Exam# [id number] Ordering Dr: Lelia Hinojosa DO PROCEDURE: CT [...] Jeremie Hess MD at 10:00 EST Tel [phone], Service support , CC: Lelia Hinojosa DO; Anupam Daily MD Furniture Manager: Signed KIDNEY PARTIAL/TOTAL Observed: 04/14/2017 Status: F Source: [place] NEPHRECT 12:00 AM [facility] REPOSITORY Patient: JESSI ACOSTA : 1955 (61/M) Acct Num: [id number] Phys: Lelia Hinojosa DO Unit Num: [id number] Loc: CT Specimen: [id number] Received: 04/14/171032 Spec Type: KIDNEY TISSUES TISSUES: Kidney, NOS COMMENT There is arterionephrosclerosis and perihilar segmental sclerosis with a large number of totally sclerotic glomeruli 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 There are moderate chronic tubulointerstitial changes. GROSS DESCRIPTION The specimen is sent entirely to [facility] for diagnosis. The specimen is received in [...] on file> Performed By: #### PKID #### [facility] [address] [place], [address] CBC-COMPLETE BLOOD CNT Collected: 04/04/2017 Status: F Source: [place] NO DIFF 3:40 PM [facility] REPOSITORY TYPE CODE TESTS RESULT OUT OF [...] MPV 11.3 Performed By: #### L100.0500 #### [facility] [address] [place], [place], [address] PROTHROMBIN TIME W/INR Collected: 04/04/2017 Status: F Source: [place] 3:40 PM [facility] REPOSITORY TYPE CODE TESTS RESULT OUT OF RANGE REFERENCE UNITS LAB L300.4150 11.7-14.9 SECONDS Normal PROTIME 12.8 LAB L300.4200 Normal INR 1.0 Performed By: #### L300.3900, L300.4310 #### [facility] [address] [facility] [place], [place], [address] PARTIAL THROMBOPLAST Collected: 04/04/2017 Status: F Source: [place] TIME 3:40 PM [facility] REPOSITORY TYPE CODE TESTS RESULT OUT OF RANGE REFERENCE UNITS LAB L300.4310 24.1-36.2 Seconds Normal PTT 29.0 Performed By: #### L300.3900, L300.4310 #### [facility] [address] [place], [address] RENAL PROFILE Collected: 03/29/2017 Status: F Source: [place] 12:09 PM [facility] REPOSITORY TYPE CODE TESTS RESULT OUT OF [...] CO2 23.0 Performed By: #### L500.3600 #### [facility] [address] [place], [address] CBC W/DIFF, AUTOMATED Collected: 03/23/2017 Status: F Source: [place] 8:28 AM [facility] REPOSITORY TYPE CODE TESTS RESULT OUT OF [...] Lymph 1.65 Performed By: #### L100.0100 #### [facility] [address] [place], [place], [address] PTHIN Collected: 03/23/2017 Status: F Source: [place] 8:28 AM [facility] REPOSITORY TYPE CODE TESTS RESULT OUT OF RANGE REFERENCE UNITS LAB L509.1000 18.4-80.1 pg/mL High PTHIN 85.8 Result Comment: Please Note: PTH INTACT METHOD AND REFERENCE RANGE CHANGE Effective 01/26/2017. Performed By: #### L509.1000 #### [facility] [address] [place], [address] ALLERGIES ALLERGIES DATE TYPE / CODE NAME / CODE REACTION SEVERITY SOURCE 04/14/2017 Drug No Known Unknown [place] [facility] Allergy/4160 Allergies/F00 Hospital 03402(SNOMED 9382121(RXNOR Repository CT) M) ENCOUNTERS ENCOUNTERS ADMIT/DISCHARGE ACCOUNT ADMITTING ENCOUNTER LOCATION SOURCE NUMBER CLASS 02/27/2018 [id number] Ambulatory [place] 1 [facility] Hospital ing:MFPLAB Repository 01/23/2018 [id number] Ambulatory [place] [facility] Hospital ing:MFPLAB Repository 12/26/2017 [id number] Ambulatory [place] 1 [facility] Hospital ing:MFPLAB Repository 11/09/2017 [id number] Ambulatory [place] 3 [facility] Hospital ing:MFPLAB Repository 10/18/2017 [id number] Ambulatory [place] 1 [facility] Hospital ing:LAB.FUTUR Repository E 08/05/2017 [id number] Ambulatory [place] 4 [facility] Hospital ing:MFPLAB Repository 06/10/2017 [id number] Ambulatory [place] 6 [facility] Hospital ing:LAB.FUTUR Repository E 06/01/2017 [id number] Ambulatory [place] 9 [facility] Hospital ing:MFPLAB Repository 05/30/2017 [id number] Ambulatory [place] 9 [facility] Hospital ing:LAB.FUTUR Repository E 04/25/2017 [id number] Ambulatory [place] 0 [facility] Hospital ing:LAB.FUTUR Repository E 04/14/2017 [id number] Ambulatory [place] 6 [facility] Hospital ing:CT Repository 04/04/2017 [id number] Ambulatory [place] 9 [facility] Hospital ing:MFPLAB Repository 04/04/2017 [id number] Ambulatory [place] 9 [facility] Hospital ing:LAB.FUTUR Repository E 03/29/2017 [id number] Ambulatory [place] 4 [facility] Hospital ing:POLAB3 Repository 03/23/2017 [id number] Ambulatory [place] 0 [facility] Hospital ing:MFPLAB Repository PAYERS PAYERS ENCOUNTER GUARANTOR PAYER SUBSCRIBER SOURCE 02/27/2018 JESSI Sargent [place] [id number] Insurance:ANTHEMPolic GASKINDOB: Community [address] [place]: [id number] [id number] Repository [address]Mvm: (330) Date:0487-83-18CM [phone] () [address], [place] [address]TO: 02/27/2018 Secondary NOT GIVENUNK [place] Insurance:SELF PAY [facility] Number: Effective Repository Date:2018-02-27 01/23/2018 JESSI Sargent Primary JESSI Sch[place] [id number] Insurance:ANTHEMPolic GASKINDOB: Community [address] Number: [id number] [id number] Repository [address]Nbm: (330) Date:9991-27-66EO [phone] () [id number], [place] [address]NM: 01/23/2018 Secondary NOT GIVENUNK [place] Insurance:SELF PAY [facility] Number: Effective Repository Date:2018-01-23 12/26/2017 JESSI aSrgent Primary JESSI [place] [id number] Insurance:ANTHEMPolic GASKINDOB: Community [address] Number: [id number] [id number] Repository [address]Kct: (330) Date:4337-14-63BZ [phone] () [address]QRVJULI, [place] [address]YA: 12/26/2017 Secondary NOT GIVENUNK [place] Insurance:SELF PAY [facility] Number: Effective Repository Date:2017-12-26 11/09/2017 JESSI Sargent Primary JESSI [place] [id number] Insurance:ANTHEMPolic GASKINDOB: Community [address] Number: [id number] [id number] Repository [address]Ipp: (330) Date:8860-51-09CA [address] () [place]ENKAT [place]UELLER [address]AV: 11/09/2017 Secondary NOT GIVENUNK [place] Insurance:SELF PAY [facility] Number: Effective Repository Date:2017-11-09 10/18/2017 JESSI Salmonoster [id number] Insurance:ANTHEMPolic GASKINDOB: Community [address] Number: [id number] [id number] Repository [address]Jct: (330) Date:9388-73-63FQ [address] () 455661LTLDJHYVENKAT MIRELES [address]SV: 10/18/2017 Secondary NOT GIVENUNK [place] Insurance:SELF PAY [facility] Number: Effective Repository Date:2017-10-18 08/05/2017 JESSI Sargent [place] [id number] Insurance:ANTHEMPolic GASKINDOB: Community [address] Number: [id number] [id number] Repository [address]Wwn: (330) Date:5023-26-83RA [address] () 857452SXRFFALVENKAT MIRELES [address]HV: 08/05/2017 Secondary NOT GIVENUNK [place] Insurance:SELF PAY [facility] Number: Effective Repository Date:2017-08-05 06/10/2017 JESSI Sargent Primary JESSI [place] [id number] Insurance:ANTHEMPolic GASKINDOB: Community [address] Number: [id number] [id number] Repository [address]Zyl: (330) Date:0318-39-88OQ [address] () 314180RQYCECRVENKAT MIRELES [address]VT: 06/10/2017 Secondary NOT GIVENUNK [place] Insurance:SELF PAY [facility] Number: Effective Repository Date:2017-06-10 06/01/2017 JESSI Sargent Primary JESSI [place]monoster [id number] Insurance:ANTHEMPolic GASKINDOB: Community [address] Number: [id number] [id number] Repository [address]Fmd: (330) Date:6233-18-05HZ [address] () [id number] MIRELES [address]CV: 06/01/2017 Secondary NOT GIVENUNK [place] Insurance:SELF PAY [facility] Number: Effective Repository Date:2017-06-01 05/30/2017 JESSI T Primary JESSI Sargent [place] [id number] Insurance:ANTHEMPolic GASKINDOB: Community [address] Number: [id number], [place] [id number] Repository [address]Ngh: (330) Date:9838-27-43TM [address] () VENKAT MUELLER [address]AF: 05/30/2017 Secondary NOT GIVENUNK [place] Insurance:SELF PAY [facility] Number: Effective Repository Date:2017-05-30 04/25/2017 JESSI T Primary JESSI T [place] [id number] Insurance:ANTHEMPolic GASKINDOB: Community [address] Number: [id number] [place], [place] [id number] Repository [address]Vtu: (330) Date:9002-83-62CX [address] () [address]CVADYDK, [place] [address]FB: 04/25/2017 Secondary NOT GIVENUNK [place] Insurance:SELF PAY [facility] Number: Effective Repository Date:2017-04-06 04/14/2017 JESSI T Primary JESSI Sargent [place] [id number] Insurance:ANTHEMPolic GASKINDOB: Community [address] Number: [id number] [place] [id number] Repository [address]Bum: (330) Date:8111-97-39BK [address] () [address]IWYUDGY, [place] [address]HO: 04/14/2017 Secondary NOT GIVENUNK [place] Insurance:SELF PAY [facility] Number: Effective Repository Date:2017-03-29 04/04/2017 JESSI Primary JESSI [place] [id number] Insurance:ANTHEMPolic GASKINDOB: Community [address] Number: [id number] [id number] Repository [address]Mbv: (330) Date:0458-68-08UB [address] () 417377NOUYMWHVENKAT MIRELES [address]ZR: 04/04/2017 Secondary NOT GIVENUNK [place] Insurance:SELF PAY [facility] Number: Effective Repository Date:2017-04-04 04/04/2017 JESSI Primary JESSI [place] [id number] Insurance:ANTHEMPolic GASKINDOB: Community [address] Number: [id number] [id number] Repository [address]Ayp: (330) Date:9062-36-59BN [address] () 826133NMCKWCQVENKAT MIRELES [address]OE: 04/04/2017 Secondary NOT GIVENUNK [place] Insurance:SELF PAY [facility] Number: Effective Repository Date:2017-04-04 03/29/2017 JESSI Primary JESSI [place] [id number] Insurance:ANTHEMPolic GASKINDOB: Community [address] Number: [id number] [place] [id number] Repository [address]Xky: (330) Date:2957-80-19OC [address] () [id number] MIRELES [address]TP: 03/29/2017 Secondary NOT GIVENUNK [place] Insurance:SELF PAY [facility] Number: Effective Repository Date:2017-03-29 03/23/2017 JESSI Primary JESSI [place] [id number] Insurance:ANTHEMPolic GASKINDOB: Community [address] Number: [id number] [place], [place] [id number] Repository [address]Kai: (330) Date:1819-58-23CV [address] () VENKAT MUELLER [address]VA: 03/23/2017 Secondary NOT GIVENUNK [place] Insurance:SELF PAY [facility] Effective Repository Date:2017-03-23
== END ==
PROVIDERS: Family Provider Family Medicine; PCP Family Medicine; Visit Provider Internal Medicine Nephrology
DX: N18.4 Chronic kidney disease, stage 4 (severe) (principal); D63.8 Anemia in other chronic diseases classified elsewhere; N25.81 Secondary hyperparathyroidism of renal origin; E55.9 Vitamin D deficiency, unspecified
CPT/HCPCS: 36415; 80069; 82306; 82728; 83540; 83550; 83970; 85027

== ENCOUNTER → 2018-03-16 07:33 | Outpatient (CLI) | payer BC, SELFPAY ==
--- NOTE | 2018-03-16 07:39 | VDUE_ITS ---
Reason For Study: CKD - Asssess for possible dialysis access placement Right Arm Left Arm Right Cephalic Vein at the wrist Left Cephalic Vein at the wrist measures .39 measures .36 x .40 cm. x .39 cm. Right Cephalic Vein in the forearm Left Cephalic Vein in the forearm measures .40 x .45 cm. measures .42 x .45 cm. Right Cephalic Vein below antecub Left Cephalic Vein below antecub measures .45 x .46 cm. measures .53 x .55 cm. Right Cephalic Vein above antecub Left Cephalic Vein above antecub measures .77 x .74 cm. measures .70 x .69 cm. Right Cephalic Vein mid bicep measures .70 Left Cephalic Vein at mid bicep measures .61 x .72 cm. x .64 cm. Right Cephalic Vein at the shoulder Left Cephalic Vein at the shoulder measures .59 x .57 cm. measures .45 x .47 cm. Right Basilic Vein at the origin Basilic vein at origin measures .38 x .40 measures .59 x .56 cm. cm. Right Basilic Vein mid bicep measures .53 Basilic vein at bicep measures .41 x .49 cm. x .58 cm. Basilic vein above antecub measures .45 Right Basilic Vein above antecub x .46 cm. measures .45 x .46 cm. LT Brachial artery - .58 x .53 cm with a RT Brachial artery - .64 x .66 cm with a velocity of 64.4 cm/s velocity of 65.6 cm/s LT Radial artery - .34 x .34 cm with a RT Radial artery - .32 x .34 cm witha velocity of 79.0 cm/s. velocity of 37.7 cm/s. Interpretation Summary Patent and compressible and adequate bilateral upper extremity cephalic and basilic veins. Adequate bilateral brachial and radial arteries. Ordering Physician: Lelia Hinojosa Referring Physician: Anupam Daily Performed By: Jen Escalante RVT ?
== END ==
PROVIDERS: Family Provider Family Medicine; PCP Family Medicine; Referring Provider Internal Medicine Nephrology; Visit Provider Internal Medicine Nephrology
DX: Z01.818 Encounter for other preprocedural examination (principal); N18.4 Chronic kidney disease, stage 4 (severe)
CPT/HCPCS: 93970

== ENCOUNTER → 2018-03-30 14:51 | Outpatient (CLI) | payer BC, SELFPAY ==
[2018-03-30 15:38] LABS: Absolute Lymphocyte Count 1.48 X10^3/ul (0.83-4.51); Absolute Neutrophil Count 2.9 X10^3/uL (2.0-7.7); Basophil# 0.01 X10^3/uL; Basophil% 0.2 % (0-1); Eosinophil# 0.14 X10^3/uL; Eosinophils% 2.8 % (0-5); Hematocrit 35.8 % (40-54); Hemoglobin 11.5 g/dl (13.0-16.5); Lymphocyte # 1.48 X10^3/ul (4.0); Lymphocyte % 29.8 % (19-41); Mean Corp Hgb Conc 32.1 g/gl (32-36); Mean Corpuscular Hgb 28.6 pg (27.0-32.0); Mean Corpuscular Volume 89.1 fL (80-94); Mean Platelet Vol. 11.7 fl (6.2-12.0); Monocyte# 0.41 X10^3/uL; Monocyte% 8.2 % (0-10); Neutrophil # 2.93 X10^3/uL (2.7-7.7); Platelet Count 204 K/mm3 (150-450); RBC Distribution Width CV 13.7 % (11.6-14.6); RBC Distribution Width SD 44.8 fl (35.1-43.9); Red Blood Count 4.02 M/mm3 (4.6-6.2)
[2018-03-30 15:41] LABS: POSITIVE COUNT NO; POSITIVE DIFFERENTIAL NO; POSITIVE MORPHOLOGY NO
[2018-03-30 15:59] LABS: Albumin, Serum 3.3 g/dL (3.2-5.0); BUN 59 mg/dL (7-18); BUN/Creat Ratio 10.2 RATIO (10-20); Calcium,Total 8.3 mg/dL (8.5-10.1); Chloride 113 mmol/L (98-107); Creatinine, Serum 5.77 mg/dL (0.70-1.30); EST Glomerular Filtration Rate 11 mL/min (>60); Est Glom Filt Rate - Afr Amer 13 mL/min (>60); Glucose 161 mg/dL (74-106); Phosphorus 4.8 mg/dL (2.5-4.9); Potassium 4.8 mmol/L (3.5-5.1); Sodium Level 142 mmol/L (136-145)
== END ==
PROVIDERS: Family Provider Family Medicine; PCP Family Medicine; Referring Provider Family Medicine; Visit Provider Internal Medicine Nephrology
DX: N18.4 Chronic kidney disease, stage 4 (severe) (principal); D63.8 Anemia in other chronic diseases classified elsewhere
CPT/HCPCS: 36415; 80069; 85025

== ENCOUNTER 2018-04-05 05:24 | Day surgery (SDC) | payer BC, SELFPAY ==
[2018-04-05] VITALS (8 sets, daily range): BP systolic 146–170; BP diastolic 94–109; PULSE 53–69; RESP 16–20; TEMP 36.3–37.4; O2SAT 95–100; BMI 35.2
--- NOTE | 2018-04-05 05:34 | EKG12_ITS ---
Test Reason : PRE OP Blood Pressure : / mmHG Vent. Rate : 073 BPM Atrial Rate : 073 BPM P-R Int : 174 ms QRS Dur : 080 ms QT Int : 402 ms P-R-T Axes : 065 -08 -01 degrees QTc Int : 442 ms Normal sinus rhythm Normal ECG No previous ECGs available Confirmed by JUVENCIO GIBSON, MICHAEL ([id number]), production editor SANNA MARIA ([id number]) on 04/06/2018 4:08:37 PM Referred By: Jimmy Gonzalez Confirmed By:MICHAEL HENNING MD
[2018-04-05 06:21] LABS: Hematocrit 34.5 % (40-54); Hemoglobin 11.2 g/dl (13.0-16.5); Mean Corp Hgb Conc 32.5 g/gl (32-36); Mean Corpuscular Hgb 29.3 pg (27.0-32.0); Mean Corpuscular Volume 90.3 fL (80-94); Mean Platelet Vol. 11.2 fl (6.2-12.0); Platelet Count 165 K/mm3 (150-450); RBC Distribution Width CV 13.2 % (11.6-14.6); Red Blood Count 3.82 M/mm3 (4.6-6.2); White Blood Count 7.5 K/mm3 (4.4-11.0)
[2018-04-05 06:29] LABS: Scan Indicated on CBC? Y/N NO
[2018-04-05 06:32] LABS: Anion Gap 11 (5-15); BUN 63 mg/dL (7-18); BUN/Creat Ratio 10.1 RATIO (10-20); Chloride 113 mmol/L (98-107); Creatinine, Serum 6.24 mg/dL (0.70-1.30); EST Glomerular Filtration Rate 10 mL/min (>60); Est Glom Filt Rate - Afr Amer 12 mL/min (>60); Estimated Creatinine Clearance 12.67 ml/min; Glucose 140 mg/dL (74-106); Potassium 4.8 mmol/L (3.5-5.1); Sodium Level 142 mmol/L (136-145)
--- NOTE | 2018-04-05 06:54 | PCM.DC.GS ---
Discharge Diet: Renal Diet Discharge Activity: May Not Drive - may not drive for approximately 3 days as comfort improved, May Not Shower Lifting Restrictions: 10 pounds Additional Activity Instructions:: Please leave the dressings intact until your dialysis center appointment within one week of catheter placement please Call your doctor if your incision/area has: Continuous Slow Oozing, Sudden Increased Bleeding, Increased Pain/ Swelling, Increased Redness, Foul Smelling Discharge Call your doctor if you observe: Fever of 101 or Higher Allergies/Adverse Reactions: Allergies No Known Allergies Allergy (Verified 04/05/18 06:14) Medications to take at Discharge Allopurinol [Zyloprim] 100 mg PO DAILYCM 04/14/17 Amlodipine [Norvasc] 10 mg PO DAILY 04/14/17 Cholecalciferol (Vitamin D3) [Vitamin D3] 2,000 unit PO DAILY 04/14/17 Lisinopril [Zestril] 20 mg PO DAILY 04/14/17 Lovastatin [Mevacor] 80 mg PO DAILY 04/14/17 hydrALAZINE [Apresoline] 100 mg PO DAILY 04/14/17 aspirin 81 mg tablet,delayed release 81 mg PO DAILY 03/20/18 carvedilol 25 mg tablet 25 mg PO BID 03/20/18 Glimepiride 4 mg PO DAILY 03/29/18 Hydrocodone Bitart/Apap 5-325 [[place] 5MG-325MG] 1 tablet PO Q6H PRN PRN 2 Days #6 tablet 04/05/18 The following prescriptions were given: Hydrocodone Bitart/Apap 5-325 [[place] 5MG-325MG] 1 tablet PO Q6H PRN PRN 2 Days #6 tablet PRN Reason: Pain Primary Care Physician: Anupam Daily MD [Primary Care Provider] - Test Results: Test results from this visit will be discussed in further detail at your follow-up appointment, if applicable. Please Follow Up With: Jimmy Gonzalez MD - [phone] When: Call to make an appointment to be seen in about 10 days.
[2018-04-05] MEDS: Cefazolin 2 GM in 0.9% Normal Saline 100 ML IV (07:13)
[2018-04-05 07:16] LABS: Bedside Glucose 136 mg/dL (70-110)
[2018-04-05] MEDS: Heparin Injection (Vial) 5,000 UNIT/ML VIAL 5000 UNIT (07:30)
[2018-04-05] MEDS: Bupivacaine Mpf 0.5% 30 ML VIAL (08:10)
--- NOTE | 2018-04-05 08:13 | PCM.OPRPT ---
Problem List (1) Chronic renal failure, stage 4 (severe) Status: Chronic Report of Operation Date of Procedure: 04/05/18 Pre-Operative Diagnosis: Stage IV chronic renal failure Post-Operative Diagnosis: Same Surgery/Procedure Performed:: Laparoscopic peritoneal dialysis catheter placement with laparoscopic omentopexy. Conveyed in [place] double cuff curl cath 62 cm catheter. Reference #[id number]. Lot #[id number]. Expiry date 07/05/2021 Description of Surgical Findings:: Timeout and informed consent was obtained. 62-year-old gentleman was taken to the operating room placed upon the table underwent general endotracheal intubation anesthesia. The abdomen sterilely prepped draped Ioban draping was used. Ancef 2 g given intravenous preoperatively.. Ioban draping was used. Using a 5 mm Visiport technology to the right of the umbilicus 0.5% Marcaine was instilled and then direct access was gained using the Visiport. The abdomen was insufflated with CO2 to a pressure of 10 mmHg pressure. 5-minute or scope was inserted the abdomen is inspected no evidence of any trocar injuries very heavy omentum the urinary bladder. Partially full there is no evidence of acute inflammation. A second 5-minute port was placed in the right lower quadrant. To the left and slightly inferior to the umbilicus after marking the length of the catheter and made a small incision and then used the 8 mm diameter dilating trocar varies needle under direct laparoscopic visualization I tunneled it for 6 cm and then advanced into the retroperitoneum and toward the pelvis. I advanced the double cuff curl cath through the catheter leaving the internal cuff just within the peritoneum. The catheter was very nicely tucked behind the urinary bladder in front of the rectum. Urinary bladder however was quite full. I then tunneled the catheter using a sharp trocar and a smooth curvilinear angle exiting at a 30 degree down angle in the left mid abdomen. The cuff site was closed with interrupted 4-0 Monocryl subdermal stitch. A titanium connection device was applied to the catheter and then the catheter was instilled with a liter of fluid. Attempts to remove that fluid however not successful visualization revealed that the pleural catheter was absolutely perfect position however the urinary bladder was acting like a flapper valve. After very careful inspection I would like to do an omentopexy. The left lateral abdomen made a small stab incision in the instrument used a GraNee needle with a 0 Prolene and completed some of the omentum and secured that to the left lateral abdominal wall. This absolutely assure that it would not encroach upon the pelvis hemostasis was nicely intact there was no bowel involvement. The curl catheter was again inspected was noted be in excellent position I elected to leave and said position heparinized it and anticipate that hopefully with voiding that the patient's urinary bladder would quit obstructing the catheter. Trochars removed under visualization incisions were closed with interrupted 4 Monocryl subdermal stitches Steri-Strips Telfa OpSite dressings applied silver impregnated dressing was placed on the catheter exit site and sterile dressings applied sponge and instrument and needle counts were reported the surgery were correct blood loss was minimal he entire procedure well was taken to the recovery area in satisfactory condition without apparent complication. Specimens none. Drains none. Blood loss minimal. Jimmy Gonzalez M.D., F.A.C.S. Type of Anesthesia:: General Anesthesiologist: Katalina Verdin
[2018-04-05 08:56] LABS: Bedside Glucose 181 mg/dL (70-110)
[2018-04-05] MEDS: HYDROcodone Bitartrate/Apap 5/325 Tablet PO (10:42)
== END 2018-04-05 11:27 | disposition home or self-care (01) ==
LOC: SDC 05:26 → AC 05:26
PROVIDERS: Family Provider Family Medicine; PCP Family Medicine; Referring Provider Surgery; Visit Provider Surgery
PROC: 0WHG43Z Insertion of Infusion Device into Peritoneal Cavity, Percutaneous Endoscopic Approach (ICD-10-PCS; CPT 49324; principal; 2018-04-05 07:00)
DX: I12.9 Hypertensive chronic kidney disease with stage 1 through stage 4 chronic kidney disease, or unspecified chronic kidney disease (principal); E11.22 Type 2 diabetes mellitus with diabetic chronic kidney disease; N18.4 Chronic kidney disease, stage 4 (severe); M10.9 Gout, unspecified; E78.5 Hyperlipidemia, unspecified; M19.90 Unspecified osteoarthritis, unspecified site; Z79.82 Long term (current) use of aspirin; Z79.899 Other long term (current) drug therapy
CPT/HCPCS: 49324; 49326; 36415; 80048; 82962; 85027; 93005; J7040; J7120; J2405

== ENCOUNTER 2018-04-17 05:18 | Day surgery (SDC) | payer BC, SELFPAY ==
[2018-04-05 06:08] VITALS: BMI 35.2
[2018-04-17 05:51] VITALS: BP 139/85; PULSE 57; RESP 16; TEMP 36.6; O2SAT 97; BMI 34.7
[2018-04-17 06:14] LABS: Hematocrit 35.2 % (40-54); Hemoglobin 11.5 g/dl (13.0-16.5); Mean Corp Hgb Conc 32.7 g/gl (32-36); Mean Corpuscular Volume 88.7 fL (80-94); Mean Platelet Vol. 10.6 fl (6.2-12.0); Platelet Count 230 K/mm3 (150-450); RBC Distribution Width CV 13.4 % (11.6-14.6); RBC Distribution Width SD 43.3 fl (35.1-43.9); Red Blood Count 3.97 M/mm3 (4.6-6.2); White Blood Count 6.4 K/mm3 (4.4-11.0)
[2018-04-17 06:15] LABS: Scan Indicated on CBC? Y/N NO
[2018-04-17 06:17] LABS: Anion Gap 12 (5-15); BUN 47 mg/dL (7-18); BUN/Creat Ratio 8.6 RATIO (10-20); Calcium,Total 8.1 mg/dL (8.5-10.1); Chloride 112 mmol/L (98-107); Creatinine, Serum 5.46 mg/dL (0.70-1.30); EST Glomerular Filtration Rate 11 mL/min (>60); Est Glom Filt Rate - Afr Amer 14 mL/min (>60); Estimated Creatinine Clearance 14.48 ml/min; Glucose 102 mg/dL (74-106); Potassium 4.2 mmol/L (3.5-5.1); Sodium Level 143 mmol/L (136-145)
--- NOTE | 2018-04-17 07:06 | PCM.DC.FIST ---
Discharge Diet: Renal Diet Discharge Activity: May Not Drive - for 2-3 days or while taking narcotic pain medications., May Not Shower Lifting Restrictions: 5 pounds Keep extremity elevated above heart level: - - Keep arm elevated above the heart level for 3 days. Additional Activity Instructions:: Exercise hand vigorously with a stress ball. Call your doctor if your incision/area has: Continuous Slow Oozing, Sudden Increased Bleeding - apply pressure and call your doctor., Increased Pain/ Swelling, Increased Redness, Foul Smelling Discharge Call your doctor if you observe: Fever of 101 or Higher Suture Line Care: Avoid Pulling/Pushing, Avoid Pinching/Bending Cleanse incision/area with: Keep Dressing Clean & Dry Additional Dressing/Incision Instructions:: Please keep your Dontae wrap on for 2 days. You may then remove it and continue to elevate your arm for comfort and to limit swelling. Leave the Steri-Strips on for an additional 1 week Allergies/Adverse Reactions: Allergies No Known Allergies Allergy (Verified 04/12/18 12:51) Medications to take at Discharge Allopurinol [Zyloprim] 100 mg PO DAILYCM 04/14/17 Amlodipine [Norvasc] 10 mg PO DAILY 04/14/17 Cholecalciferol (Vitamin D3) [Vitamin D3] 2,000 unit PO DAILY 04/14/17 Lisinopril [Zestril] 20 mg PO DAILY 04/14/17 Lovastatin [Mevacor] 80 mg PO DAILY 04/14/17 hydrALAZINE [Apresoline] 100 mg PO DAILY 04/14/17 aspirin 81 mg tablet,delayed release 81 mg PO DAILY 03/20/18 carvedilol 25 mg tablet 25 mg PO BID 03/20/18 Glimepiride 4 mg PO DAILY 03/29/18 Hydrocodone Bitart/Apap 5-325 [[place] 5MG-325MG] 1 tablet PO Q6H PRN PRN 2 Days #5 tablet 04/17/18 The following prescriptions were given: Hydrocodone Bitart/Apap 5-325 [[place] 5MG-325MG] 1 tablet PO Q6H PRN PRN 2 Days #5 tablet PRN Reason: Pain Primary Care Physician: Anupam Daily MD [Primary Care Provider] - Test Results: Test results from this visit will be discussed in further detail at your follow-up appointment, if applicable. Please Follow Up With: Jimmy Gonzalez MD - [phone] When: Call to make an appointment in approximately 10 days.
[2018-04-17] MEDS: Heparin Injection (Vial) 5,000 UNIT/ML VIAL 5000 UNIT (07:35)
[2018-04-17] MEDS: Bupivacaine Mpf 0.5% 30 ML VIAL (07:35)
--- NOTE | 2018-04-17 09:14 | OP.PCM_ITS ---
Problem List (1) Chronic renal failure, stage 4 (severe) Status: Chronic Report of Operation Date of Procedure: 04/17/18 Pre-Operative Diagnosis: Stage IV chronic renal insufficiency Post-Operative Diagnosis: Same Surgery/Procedure Performed:: Transposition left forearm cephalic vein to radial artery arteriovenous fistula creation Description of Surgical Findings:: Timeout and informed consent was obtained. 62-year-old gentleman was taken the operating placement table. He underwent monitored anesthesia care local anesthetic. Clean procedure no antibiotics required. The left upper extremity was sterilely prepped and draped. 1% lidocaine mixed 50-50 with 0.5% Marcaine was used as a local anesthetic. A total of 12 cc was used. 0.5% lidocaine was also used as a local anesthetic. A total of 23 cc was used. Local was instilled. Ultrasound mapping had been performed by myself preintervention. A longitudinal incision was gradually made along the left volar radial aspect of the forearm. Tedious sharp and blunt dissection was used to identify the cephalic vein. Side branches were secured with 4-0 Vicryl ligatures and hemoclips were needed. Dissection was performed from the wrist up to the antecubital space. The vein was then marked. It was amputated distally and then it was irrigated and had adequate dimension. There were no leaks. It was irrigated with heparinized saline. Sharp and blunt dissection was used to identify the radial artery at the wrist. Circumferential dissection was performed with and a vessel loop placed. Then a straight tunnel was used to make a subcutaneous tunnel medial to the excision site on the forearm from the wrist to the antecubital space. This point the patient received 10,000 units of heparin intravenously weight-based. The vein was then carefully tunneled from the antecubital space to the wrist. It was irrigated and had good positional lie. After adequate heparin circulation time peripheral vascular clamps were p laced on the radial artery. A 11 blade was used to make an arteriotomy which was extended with Varela scissors. The vein was spatulated to length and end-to-side anastomosis was created with running 7-0 Prolene. Prior to completion there appeared to be good antegrade and retrograde flow. The anastomosis was completed there appeared to be good flow within the fistula. Have a good positional lie. The wound was then closed with a deep layer multiple interrupted 3-0 Vicryl subdermal stitches. The skin edges approximated with a running septic or 4-0 Monocryl. Steri-Strips Telfa soft roll Dontae wrap applied. Sponge and instrument and needle counts were reported the surgeon to be correct. With completion of the anastomosis the patient received 20 mg of protamine intravenously. Specimen none. Drains none. Blood loss minimal. The hand was viable at the completion. He was taken to the recovery area in satisfactory condition without apparent complication. Jimmy Gonzalez M.D., F.A.C.S. Type of Anesthesia:: Local MAC Anesthesiologist: Brad Watts
[2018-04-17 09:35] VITALS: BP 106/67; BP 139/85; PULSE 55; RESP 16; TEMP 35.6; O2SAT 97
[2018-04-17 09:40] LABS: Bedside Glucose 131 mg/dL (70-110)
[2018-04-17 09:45] VITALS: BP 114/67; BP 139/85; PULSE 60; RESP 16; TEMP 36.1; O2SAT 99
[2018-04-17 10:00] VITALS: BP 127/72; BP 139/85; PULSE 53; RESP 16; TEMP 36.2; O2SAT 99
[2018-04-17 11:11] VITALS: BP 134/87; BP 139/85; PULSE 58; RESP 20; TEMP 36.1; O2SAT 98
== END 2018-04-17 11:28 | disposition home or self-care (01) ==
LOC: SDC 05:20 → AC 05:24
PROVIDERS: Family Provider Family Medicine; PCP Family Medicine; Referring Provider Surgery; Visit Provider Surgery
PROC: (CPT 36820; principal; 2018-04-17 07:00)
DX: I12.9 Hypertensive chronic kidney disease with stage 1 through stage 4 chronic kidney disease, or unspecified chronic kidney disease (principal); E11.22 Type 2 diabetes mellitus with diabetic chronic kidney disease; N18.4 Chronic kidney disease, stage 4 (severe); M19.90 Unspecified osteoarthritis, unspecified site; M10.9 Gout, unspecified; E78.5 Hyperlipidemia, unspecified; E66.9 Obesity, unspecified; Z68.34 Body mass index [BMI] 34.0-34.9, adult; Z79.84 Long term (current) use of oral hypoglycemic drugs; Z79.82 Long term (current) use of aspirin; Z79.899 Other long term (current) drug therapy
CPT/HCPCS: 01844; 36820; 36415; 80048; 82962; 85027

== ENCOUNTER → 2018-05-08 16:25 | Outpatient (CLI) | payer BC, SELFPAY ==
[2018-04-17 05:51] VITALS: BMI 34.7
[2018-05-10 11:06] LABS: HEPATITIS B SURFACE AG Negative (Negative)
== END ==
PROVIDERS: Family Provider Family Medicine; PCP Family Medicine; Referring Provider Internal Medicine Nephrology; Visit Provider Internal Medicine Nephrology
DX: N18.6 End stage renal disease (principal)
CPT/HCPCS: 36415; 87340

== ENCOUNTER → 2018-06-30 | Outpatient (CLI) | payer BC, SELFPAY ==
[2018-05-29 15:48] VITALS: BMI 34.7
[2018-06-30 10:36] LABS: Cholesterol 176 mg/dL (200); High Density Lipoprotein 38 mg/dL; Triglycerides 175 mg/dL; Very Low Density Lipoprotein 35 mg/dL (5-40)
== END | disposition home or self-care (01) ==
LOC: MTLAB 08:22
PROVIDERS: Family Provider Family Medicine; PCP Family Medicine; Referring Provider Family Medicine; Visit Provider Family Medicine
DX: E11.9 Type 2 diabetes mellitus without complications (principal)
CPT/HCPCS: 36415; 80061

== ENCOUNTER 2018-08-08 08:00 | Day surgery (SDC) | payer BC, SELFPAY ==
[2018-05-29 15:48] VITALS: BMI 34.7
[2018-08-04 14:32] LABS: Glucose 166 mg/dL (74-106); Hematocrit 38.1 % (40-54); Hemoglobin 12.7 g/dl (13.0-16.5); Mean Corp Hgb Conc 33.3 g/gl (32-36); Mean Corpuscular Hgb 28.5 pg (27.0-32.0); Mean Corpuscular Volume 85.6 fL (80-94); Platelet Count 201 K/mm3 (150-450); RBC Distribution Width CV 13.9 % (11.6-14.6); RBC Distribution Width SD 42.7 fl (35.1-43.9); Red Blood Count 4.45 M/mm3 (4.6-6.2); Scan Indicated on CBC? Y/N NO; White Blood Count 6.2 K/mm3 (4.4-11.0)
[2018-08-04 14:33] LABS: ALB/GLOB Ratio 0.7 RATIO (0.9-2.4); AST(SGOT) 15 U/L (15-37); Alanine Aminotransfer ALT/SGPT 24 U/L (16-61); Albumin, Serum 3.2 g/dL (3.2-5.0); Alkaline Phosphatase 85 U/L (45-117); Anion Gap 6 (5-15); BUN 47 mg/dL (7-18); BUN/Creat Ratio 7.2 RATIO (10-20); Calcium,Total 8.5 mg/dL (8.5-10.1); Chloride 109 mmol/L (98-107); Creatinine, Serum 6.55 mg/dL (0.70-1.30); EST Glomerular Filtration Rate 9 mL/min (>60); Est Glom Filt Rate - Afr Amer 11 mL/min (>60); Globulin 4.8 g/dL (2.2-4.2); Potassium 4.1 mmol/L (3.5-5.1); Sodium Level 138 mmol/L (136-145)
[2018-08-08] VITALS (9 sets, daily range): BP systolic 115–156; BP diastolic 75–108; PULSE 68–77; RESP 16–18; TEMP 36.1–36.6; O2SAT 96–100; BMI 34.4
--- NOTE | 2018-08-08 | COLBX_PTH ---
PATIENT: JESSI ACOSTA LOC: EN U#:[id number] AGE/SX: 62/M ROOM: RE08/08/[address]: Dr. Jimmy Gonzalez MD : 1955 BED: DIS: 08/08/2018 SPEC #: [id number] RECD: 08/08/18 14:04 STATUS: INDIO FREDERIC #: [id number] JAMSHID: 08/08/18 00:[address]: Jimmy Gonzalez DEPT: SURGICAL PATHOLOGY RECD BY: Sami Landrum ENTERED: 08/08/18 14:04 SP TYPE: COLON BX OTHR DR: Dr. Anupam Daily MD Tissues: Descending colon Procedures: Surgery Specimen Level IV HEADER OPERATION: Colonoscopy (MAC) PRE-OP DIAGNOSIS: Screening TISSUE SUBMITTED: Descending colon biopsy MICROSCOPIC DIAGNOSIS Descending colon, biopsy: Tubular adenoma. SJ:lan 08/09/18 MICROSCOPIC DESCRIPTION Slides are reviewed. GROSS DESCRIPTION Received in fixative is one container labeled with the patient's name and designated descending colon biopsy. The specimen consists of one irregular fragment of light suárez soft tissue that measures 0.2 x 0.1 x 0.1 cm. The specimen is totally submitted in one cassette. / AM:lan 08/08/18 TC:1 CPT: 46769
--- NOTE | 2018-08-08 06:33 | PCM.HP.BLA ---
Problem List (1) Screening for intestinal cancer Status: Acute History and Physical Date of Admission: 08/08/18 MR#: [id number] Acct: [id number] Name: JESSI ACOSTA Rep #: [id number] : 1955 Provider: Jimmy Gonzalez MD Age/Sex: 62/M Location: [facility] Status: Signed Intake Intake Visit Reasons: fistula placement 04/17/18 Chief Complaint: discuss PD caths vs. fistula Cheese Specialist Required: No Is patient in pain?: No Allergies No Known Allergies Allergy (Verified 08/03/18 08:06) Medications Allopurinol [Zyloprim] 100 mg PO DAILYCM 04/14/17 [History Confirmed 08/03/18] Amlodipine [Norvasc] 10 mg PO DAILY 04/14/17 [History Confirmed 08/03/18] Cholecalciferol (Vitamin D3) [Vitamin D3] 2,000 unit PO DAILY 04/14/17 [History Confirmed 08/03/18] Lisinopril [Zestril] 20 mg PO DAILY 04/14/17 [History Confirmed 08/03/18] Lovastatin [Mevacor] 80 mg PO DAILY 04/14/17 [History Confirmed 08/03/18] hydrALAZINE [Apresoline] 100 mg PO DAILY 04/14/17 [History Confirmed 08/03/18] aspirin 81 mg tablet,delayed release 81 mg PO DAILY 03/20/18 [History Confirmed 08/03/18] carvedilol 25 mg tablet 25 mg PO BID 03/20/18 [History Confirmed 08/03/18] Glimepiride 4 mg PO DAILY 03/29/18 [History Confirmed 08/03/18] Subjective Details: 62-year-old gentleman. He is currently on chronic home peritoneal dialysis. He states that he performs that 7 days/week at approximately 8-1/2 hours per session. On April 05, 2018 I performed a laparoscopic placement of the peritoneal dialysis catheters with a laparoscopic omentopexy. On April 17, 2018 I performed a transposition left forearm cephalic vein to radial artery AV fistula creation. The patient's drop wirer is Dr. Lelia Hinojosa. The patient states that he is not currently having any troubles peritoneal catheters. He denies any systemic symptoms. On his previous office appointment I did detect some suggestion of relative narrowing in the very proximal portion of his left forearm AV fistula. In the past there have been concerns regarding the patient's medical compliance. Objective Details: Patient is alert cooperative in no acute distress Chest: Clear to auscultation with good effort Cardiac exam: Regular rate and rhythm Abdomen: Overweight, nontender, healed peritoneal dialysis catheter placement left lower quadrant. No tenderness or erythema or drainage Extremities: Left forearm transposed cephalic vein radial artery AV fistula with a pulse and thrill and bruit. On ultrasound inspection there appears to be a relative narrowing within 1 to 2 cm of the anastomosis. Extremities: No calf tenderness to palpation Neurologic exam grossly intact Assessment & Plan Problems 1. Problem with dialysis access T82.898A Plan I have recommended to the patient a left forearm fistulogram. I anticipate using ultrasound access closer to the antecubital space retrograde with flow anticipating relative stenosis in the very proximal portion of the fistula. He is aware of the technique, benefit, risk and alternatives. His only anticoagulation is low-dose aspirin. Fortunately the patient has improved his medical compliance. He appears to be doing well with his home peritoneal dialysis. CC: Dr. Lelia Hinojosa and Dr. Anupam Gonzalez M.D., F.A.C.S. Coding Level of Care Code Off vis,est,level 3 Diagnoses Problem with dialysis access T82.898A 08/03/18 1037 <Electronically signed by Jimmy Gonzalez MD> Date Jimmy Gonzalez MD Cosigner Signature: Date (if applicable) CC: Lelia Hinojosa DO; Anupam Daily MD ~ I have re-examined the patient. There are no clinical changes since date of exam.
[2018-08-08 08:36] LABS: Bedside Glucose 198 mg/dL (70-110)
--- NOTE | 2018-08-09 10:45 | OP.ENDO_ITS ---
08/09/2018 Anupam Daily MD [address] [place] [address] Re : Colonoscopy procedure for Angelo Flores Dear Dr. Daily This procedure was performed on Wednesday, August 08, 2018. My impressions and recommendations are as follows: Impressions : - Hemorrhoids found on perianal exam. - One 7 mm polyp in the proximal descending colon, removed with a hot snare. Resected and retrieved. - The examination was otherwise normal. Recommendations : - Discharge patient to home. - Resume previous diet. - Continue present medications. - Repeat colonoscopy in 5 years for surveillance. - Telephone my office for pathology results in 1 week. My findings are described in the full procedure note, which is enclosed. If I can be of further assistance, please feel free to contact me at Doctor phone number(s): Work: . Sincerely, Jimmy Gonzalez MD 08/08/2018 10:07:15 AM This report has been signed electronically.
== END 2018-08-08 10:46 | disposition home or self-care (01) ==
LOC: EN 08:01 → AC 08:02
PROVIDERS: Family Provider Family Medicine; PCP Family Medicine; Referring Provider Surgery; Visit Provider Surgery
PROC: 0DJD8ZZ Inspection of Lower Intestinal Tract, Via Natural or Artificial Opening Endoscopic (ICD-10-PCS; CPT 45378; principal; 2018-08-08 09:25)
DX: Z12.11 Encounter for screening for malignant neoplasm of colon (principal); D12.4 Benign neoplasm of descending colon; K64.9 Unspecified hemorrhoids; K21.9 Gastro-esophageal reflux disease without esophagitis; E78.00 Pure hypercholesterolemia, unspecified; I12.9 Hypertensive chronic kidney disease with stage 1 through stage 4 chronic kidney disease, or unspecified chronic kidney disease; E11.22 Type 2 diabetes mellitus with diabetic chronic kidney disease; N18.4 Chronic kidney disease, stage 4 (severe); Z99.2 Dependence on renal dialysis; Z79.84 Long term (current) use of oral hypoglycemic drugs; Z79.82 Long term (current) use of aspirin; Z79.899 Other long term (current) drug therapy
CPT/HCPCS: 45380; 36415; 80053; 82962; 85027; 88305; J7120; J1610

== ENCOUNTER 2018-08-09 09:06 | Day surgery (SDC) | payer BC, SELFPAY ==
[2018-05-29 15:48] VITALS: BMI 34.7
[2018-08-08 08:19] VITALS: BMI 34.4
[2018-08-09 09:19] VITALS: BMI 34.4
--- NOTE | 2018-08-09 09:36 | HP.PCM_ITS ---
Problem List (1) Problem with dialysis access Status: Acute Qualifiers: Encounter type: subsequent encounter Qualified Code(s): T82.898D - Other specified complication of vascular prosthetic devices, implants and grafts, subsequent encounter History and Physical Date of Admission: 08/09/18 MR#:[id number]:[id number] Name: JESSI ACOSTA Rep #: [id number] : 1955 Provider: Jimmy blanchard MD Age/Sex: 62/M Location: [facility] Status: Signed Intake Intake Visit Reasons: fistula placement 04/17/18 Chief Complaint: discuss PD caths vs. 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 Is patient in pain?: No Allergies No Known Allergies Allergy (Verified 08/03/18 08:06) Medications Allopurinol [Zyloprim] 100 mg PO DAILYCM 04/14/17 [History Confirmed 08/03/18] Amlodipine [Norvasc] 10 mg PO DAILY 04/14/17 [History Confirmed 08/03/18] Cholecalciferol (Vitamin D3) [Vitamin D3] 2,000 unit PO DAILY 04/14/17 [History Confirmed 08/03/18] Lisinopril [Zestril] 20 mg PO DAILY 04/14/17 [History Confirmed 08/03/18] Lovastatin [Mevacor] 80 mg PO DAILY 04/14/17 [History Confirmed 08/03/18] hydrALAZINE [Apresoline] 100 mg PO DAILY 04/14/17 [History Confirmed 08/03/18] aspirin 81 mg tablet,delayed release 81 mg PO DAILY 03/20/18 [History Confirmed 08/03/18] carvedilol 25 mg tablet 25 mg PO BID 03/20/18 [History Confirmed 08/03/18] Glimepiride 4 mg PO DAILY 03/29/18 [History Confirmed 08/03/18] Subjective Details: 62-year-old gentleman. He is currently on chronic home peritoneal dialysis. He states that he performs that 7 days/week at approximately 8-1/2 hours per session. On April 05, 2018 I performed a laparoscopic placement of the peritoneal dialysis catheters with a laparoscopic omentopexy. On April 17, 2018 I performed a transposition left forearm cephalic vein to radial artery AV fistula creation. The patient's ballet company member is Dr. Lelia Hinojosa. The patient states that he is not currently having any troubles peritoneal catheters. He denies any systemic symptoms. On his previous office appointment I did detect some suggestion of relative narrowing in the very proximal portion of his left forearm AV fistula. In the past there have been concerns regarding the patient's medical compliance. Objective Details: Patient is alert cooperative in no acute distress Chest: Clear to auscultation with good effort Cardiac exam: Regular rate and rhythm Abdomen: Overweight, nontender, healed peritoneal dialysis catheter placement left lower quadrant. No tenderness or erythema or drainage Extremities: Left forearm transposed cephalic vein radial artery AV fistula with a pulse and thrill and bruit. On ultrasound inspection there appears to be a relative narrowing within 1 to 2 cm of the anastomosis. Extremities: No calf tenderness to palpation Neurologic exam grossly intact Assessment & Plan Problems 1. Problem with dialysis access T82.898A Plan I have recommended to the patient a left forearm fistulogram. I anticipate using ultrasound access closer to the antecubital space retrograde with flow anticipating relative stenosis in the very proximal portion of the fistula. He is aware of the technique, benefit, risk and alternatives. His only anticoagulation is low-dose aspirin. Fortunately the patient has improved his medical compliance. He appears to be doing well with his home peritoneal dialysis. CC: Dr. Lelia Hinojosa and Dr. Anupam Gonzalez M.D., F.A.C.S. Coding Level of Care Code Off vis,est,level 3 Diagnoses Problem with dialysis access T82.898A 08/03/18 1037 <Electronically signed by Jimmy cortés MD> Date _ Jimmy Gonzalez MD Cosigner Signature: Date (if applicable) CC: Lelia Hinojosa DO; Anupam Daily MD ~ I have re-examined the patient. There are no clinical changes since date of exam.
--- NOTE | 2018-08-09 11:59 | PCM.OPRPT ---
Problem List (1) Problem with dialysis access Status: Acute Qualifiers: Encounter type: subsequent encounter Qualified Code(s): T82.898D - Other specified complication of vascular prosthetic devices, implants and grafts, subsequent encounter Report of Operation Date of Procedure: 08/09/18 Pre-Operative Diagnosis: Failure to mature left forearm radial to cephalic arteriovenous hemodialysis fistula Post-Operative Diagnosis: Proximal fistula venous stenosis Surgery/Procedure Performed:: Left upper extremity fistulogram with 6 x 40 mm Powerflex angioplasty Description of Surgical Findings:: Timeout and informed consent was obtained. 62-year-old gentleman was taken to the procedure room placed on the table. His left upper extremity was sterilely prepped and draped. 50 mcg of fentanyl 1 mg Versed were given intravenous sedation. Under ultrasound guidance close to the antecubital space 2% lidocaine was instilled and then a micropuncture needle was inserted into the cephalic vein retrograde with flow. Micro puncture wire inserted. 6 Khmer short sheath dilator was inserted. An 035 angled Glidewire was used to advance a 4 Khmer glide cath into the radial artery proximal to the anastomosis. Using Isovue contrast fistulogram was obtained demonstrating clinically significant stenosis of the arterial anastomosis and of the proximal venous portion of the fistula. Subsequently a 035 angled stiff Glidewire was advanced in the radial artery under fluoroscopic control. A 6 x 40 mm Powerflex balloon was performed and balloon angioplasty was performed of the radial artery arterial anastomotic area and of the proximal and midportion of the fistula. Insufflation pressures up to 18 zbigniew of pressure. There was good response to the majority of the vein with one area of the vein with 15% residual stenosis. At this point I elected not to place a separate balloon in while the fistula was still young and maturing. Final images demonstrated dramatic improvement in the arterial anastomosis and flow throughout the fistula. Fistulogram was completed for the upper arm. Wires and balloons were removed. 4-0 nylon used sutures placed for hemostasis as the sheath was removed. He tolerated the procedure well. Fistulogram demonstrates a left forearm radiocephalic arteriovenous hemodialysis fistula. There is at least moderate arterial anastomotic stenosis. There is evidence of a 1 to 2 cm area of 70% venous stenosis. There is good cephalic and basilic vein outflow of the upper arm and good central venous outflow. Subsequent to the angioplasty there appears to be essential resolution of the area of anastomotic and venous stenosis. There is a good pulse and thrill and bruit within the fistula at the completion. Specimen none. Drains none. Blood loss minimal. Jimmy Gonzalez M.D., F.A.C.S. Type of Anesthesia:: IV Sedation, Local
== END 2018-08-09 13:00 | disposition home or self-care (01) ==
PROVIDERS: Family Provider Family Medicine; PCP Family Medicine; Referring Provider Surgery; Visit Provider Surgery
DX: T82.898A Other specified complication of vascular prosthetic devices, implants and grafts, initial encounter (principal); Z99.2 Dependence on renal dialysis; Z79.82 Long term (current) use of aspirin
CPT/HCPCS: 36902; 76937; 99152; 99153; Q9967; C1725; C1769

== ENCOUNTER 2020-03-10 11:01 | Inpatient (IN) | payer MEDICARE, SELFPAY ==
[2019-05-16 08:49] VITALS: BMI 34.4
[2020-03-10] VITALS (12 sets, daily range): BP systolic 129–162; BP diastolic 77–99; PULSE 61–85; RESP 18–24; TEMP 36–37.8; O2SAT 94–98; BMI 33.0; BMI 31.6
--- NOTE | 2020-03-10 11:11 | RAD_ITS ---
STUDY: X-RAY CHEST REASON FOR EXAM: Male, 64 years old. FEVERS, CHILLS, COUGH, SOB, DIARRHEA, SORE THROAT SINCE TUESDAY. DIALYSIS PATIENT TECHNIQUE: Single AP portable view of the chest. COMPARISON: None. FINDINGS: EKG electrodes are seen. Patchy bilateral pulmonary infiltrates in the preferential peripheral distribution. Covid should be ruled out. There is no demonstrated pleural abnormality. Normal size heart. Normal mediastinum and bimal. Normal visualized pulmonary arteries. There is atherosclerotic calcification of the aortic arch with tortuosity. There are diffuse degenerative changes of the visualized thoracic spine. Normal visualized ribs, clavicles, and shoulders. There is no demonstrated abnormality of the visualized soft tissue structures of the upper abdomen. RAD/Chest 1 View (Portable) IMPRESSION: Multiple bilateral patchy pulmonary infiltrates in a peripheral distribution. Covid should be ruled out. Electronically Signed: Jeremie Hess MD at 11:56 EST , Service support ,
--- NOTE | 2020-03-10 11:11 | EKG12_ITS ---
Test Reason : COUGH Blood Pressure : / mmHG Vent. Rate : 080 BPM Atrial Rate : 080 BPM P-R Int : 166 ms QRS Dur : 088 ms QT Int : 360 ms P-R-T Axes : 028 -29 026 degrees QTc Int : 415 ms Normal sinus rhythm Normal ECG Confirmed by JUVENCIO GIBSON, MICHAEL ([id number]), commissioning editor DONIS SIMPSON ([id number]) on 03/12/2020 1:28:47 PM Referred By: SANDY Confirmed By:MICHAEL HENNING MD
--- NOTE | 2020-03-10 11:13 | ED.DCSUM_ITS ---
- ER Visit Summary Date of Service: 03/10/20 Chief Complaint: Fever History of Present Illness: The patient is a 64 M presenting with fever and chills. He states these symptoms started on Tuesday. He complains of shortness of breath and nonproductive cough. He has had diarrhea. Denies blood in his stool. Denies nausea or vomiting. Denies abdominal pain. He complains of myalgias and headache. He has not been tested for Covid recently. He is on peritoneal dialysis and completed dialysis last night. Physical Examination: Vitals are stable. Patient is afebrile. Alert no acute distress. HEENT exam is unremarkable. Neck is supple. Lungs are clear and equal bilaterally. Heart is regular rate and rhythm. Abdomen is soft nontender nondistended. No guarding or rebound Extremities are unremarkable. Skin is warm and dry. No focal neurologic deficit. Remainder of exam is unremarkable. Emergency Department Course and Treatment: Chest x-ray read by myself and radiology shows multiple bilateral patchy pulmonary infiltrates in a peripheral distribution. Covid should be ruled out. EKG is sinus rhythm rate of 80 with no acute ischemic changes. CBC, chemistries unremarkable other than glucose 187, creatinine 13. Troponin negative. Covid is positive. Patient was given Decadron. With ambulation his pulse ox dropped to 88% on room air. Discussed with hospitalist for admission. Disposition: Admission Impression: Covid pneumonia, hypoxia This note was generated with [employer] dictation software. It may contain incorrect words, spelling, and punctuation that were not noted in review of the chart prior to signing ED Disposition - Plan for ED Patient: Referrals: Anupam Daily MD [Primary Care Provider] -
[2020-03-10 11:47] LABS: Absolute Lymphocyte Count 1.74 X10^3/uL (0.83-4.51); Absolute Neutrophil Count 3.9 X10^3/uL (2.0-7.7); Basophil# 0.01 X10^3/uL; Basophil% 0.2 % (0-1); Hematocrit 41.8 % (40-54); Hemoglobin 13.1 g/dL (13.0-16.5); Lymphocyte # 1.74 X10^3/ul (4.0); Lymphocyte % 28.2 % (19-41); Mean Corp Hgb Conc 31.3 g/dL (32-36); Mean Corpuscular Hgb 29.4 pg (27.0-32.0); Mean Corpuscular Volume 93.7 fL (80-94); Mean Platelet Vol. 11.2 fl (6.2-12.0); Monocyte# 0.49 X10^3/uL; Monocyte% 7.9 % (0-10); NRBC Flagged by Analyzer 0 % (0-5); Neutrophil # 3.93 X10^3/uL (2.7-7.7); Neutrophil % 63.5 % (47-70); Platelet Count 115 K/mm3 (150-450); RBC Distribution Width CV 13.2 % (11.6-14.6); RBC Distribution Width SD 45.1 fl (35.1-43.9); Red Blood Count 4.46 M/mm3 (4.6-6.2); White Blood Count 6.2 K/mm3 (4.4-11.0)
[2020-03-10 12:05] LABS: Lactic Acid 1.2 mmol/L (0.4-1.9)
[2020-03-10 12:09] LABS: ALB/GLOB Ratio 0.6 RATIO (0.9-2.4); AST(SGOT) 32 U/L (15-37); Alanine Aminotransfer ALT/SGPT 40 U/L (16-61); Albumin, Serum 3.2 g/dL (3.2-5.0); Alkaline Phosphatase 48 U/L (45-117); Anion Gap 13 (5-15); BUN 66 mg/dL (7-18); BUN/Creat Ratio 5.1 RATIO (10-20); Calcium,Total 9.5 mg/dL (8.5-10.1); Chloride 103 mmol/L (98-107); EST Glomerular Filtration Rate 4 mL/min (>60); Est Glom Filt Rate - Afr Amer 5 mL/min (>60); Estimated Creatinine Clearance 5.93 ml/min; Globulin 5.5 g/dL (2.2-4.2); Glucose 197 mg/dL (74-106); Potassium 4.1 mmol/L (3.5-5.1); Protein, Total 8.7 g/dL (6.4-8.2); Sodium Level 136 mmol/L (136-145)
[2020-03-10] MEDS: dexAMETHasone 4 MG Tablet 6 MG PO (12:47)
--- NOTE | 2020-03-10 13:12 | PCM.HP.STD ---
Problem List (1) COVID-19 Status: Acute History of Present Illness Date of Admission: 03/10/20 Chief Complaint: shortness of breath The patient is a 64 year old M presents with myriad of symptoms that began on March 07. Started feeling ill then with shortness of breath, diarrhea, anosmia, dysgeusia. Symptoms have progressed. Presented to the emergency room because he was feeling so unwell. Pulse ox was 98% on room air at rest, however dropped down to 88% with exertion. Patient did receive 6 mg of oral dexamethasone. Patient does not know how he contracted COVID-19, however he does live with his and stepdaughter. Neither of them been sick nor have been tested for COVID-19. [] Past Medical History Past Medical History (Chronic Problems): Chronic Problems (Last Reviewed 05/16/19 @ 08:49 by Lupe Morataya) Chronic renal failure, stage 5 (Chronic) Chronic renal failure, stage 4 (severe) (Chronic) HTN (hypertension) (Chronic) Chronic renal failure, stage 4 (severe) (Chronic) Medical History: Medical History (Last Reviewed 03/10/20 @ 13:[address] Tyrone Lee, DO) Chronic renal failure, stage 5 (Chronic) N18.5 Problem with dialysis access (Acute) T82.898A Chronic renal failure, stage 4 (severe) (Chronic) N18.4 HTN (hypertension) (Chronic) I10 Osteoarthritis (Acute) M19.90 Gout (Acute) M10.9 Diabetes (Acute) E11.9 Chronic renal failure, stage 4 (severe) (Chronic) N18.4 Allergies No Known Allergies Allergy (Verified 03/10/20 11:01) Home Medications: Ambulatory Orders Medication Instructions Recorded Allopurinol [Zyloprim] 100 mg PO DAILYCM 04/14/17 Amlodipine [Norvasc] 10 mg PO DAILY 04/14/17 Cholecalciferol (Vitamin D3) 2,000 unit PO DAILY 04/14/17 [Vitamin D3] Lisinopril [Zestril] 20 mg PO DAILY 04/14/17 Lovastatin [Mevacor] 80 mg PO DAILY 04/14/17 hydrALAZINE [Apresoline] 100 mg PO DAILY 04/14/17 aspirin 81 mg tablet,delayed 81 mg PO DAILY 03/20/18 release carvedilol 25 mg tablet 25 mg PO BID 03/20/18 Glimepiride 4 mg PO DAILY 03/29/18 Surgical History: Surgical History (Last Reviewed 03/10/20 @ 13:[address] Tyrone Lee DO) Hx of arteriovenostomy for renal dialysis (Acute) Z99.2 04/17/18 Status post insertion of dialysis catheter (Acute) Onset Date: ~03/2018 Z95.828, Z99.2 History of colonoscopy (Acute) Z98.890 History of arthroscopy of knee (Acute) Z98.890 History of carpal tunnel release (Acute) Z98.890 Smoking Status: Never smoker Tobacco Use: Non-smoker - *Family History Maternal Family History: Family History (Last Reviewed 03/10/20 @ 13:[address] Tyrone Lee DO) Father Diabetes Mother CVA (cerebral vascular accident) Hypertension Breast cancer Review of Systems Constitutional: Reports: Chills, Fever, Malaise Eyes: Denies: Blurred vision, Double vision HEENT: Denies: Head Aches, Sinus Congestion, Sinus Drainage Cardiovascular: Denies: Chest Pain, Palpitations Respiratory: Reports: Cough, Shortness of Breath Gastrointestinal: Reports: Abdominal Pain, Diarrhea Hematologic/ Lymphatic: Denies: Easy Bruising, Easy Bleeding, Hx of blood clot Comment: All review of systems were negative except as mentioned above in the history of present illness and the other review of systems. VTE Information - Inpt Only VTE Present on Admission: No VTE Mechan Device Prophylaxis: None VTE Pharm Prophylaxis ordered?: Yes - Physical Exam Vitals/I&O's: Vital Signs Temp Pulse Resp BP Pulse Ox 36.7 C 72 18 129/77 H 96 03/10/20 12:48 03/10/20 12:48 03/10/20 12:48 03/10/20 12:48 03/10/20 12:48 Oxygen Delivery Method Room Air Weight: 104.326 kg Body Mass Index (BMI) 33.0 Finger Stick Blood Glucose 131 General: Alert, Cooperative, No apparent distress HEENT: Atraumatic, Normocephalic Oral: Moist Mucosa, No Gingival or Mucosal Lesions/ Ulcerations Neck: Supple, No JVD, Negative Carotid Bruits, Negative Hepatojugular Reflux Lungs: Clear to auscultation, Normal air movement, No rhonchi, No wheeze, No rales Cardiovascular: Regular rate, Regular Rhythm, Normal S1, Normal S2, No murmurs Abdomen: Bowel Sounds Present, Soft, Non Tender, Non-Distended, No Hepato-splenomegaly Extremities: No edema, No Calf Tenderness Skin: No rashes, No breakdown Musculoskeletal: No Tenderness to Palpation of Joints or Extremities, No Muscle Wasting Psych/Mental Status: Normal Affect, Appropriate Microbiology Past 72 Hours 03/10/20 11:28 Mucosa - Nose SARS-CoV-2 Antigen (Rapid) - Final SARS-CoV-2 (COVID 19) Laboratory Results 03/10/20 11:28: WBC 6.2, RBC 4.46 L, Hgb 13.1, Hct 41.8, MCV 93.7, MCH 29.4, MCHC 31.3 L, RDW Std Deviation 45.1 H, RDW Coeff of Alexus 13.2, Plt Count 115 L, MPV 11.2, Immature Gran % (Auto) 0.200, Neut % (Auto) 63.5, Lymph % (Auto) 28.2, [place] % (Auto) 7.9, Eos % (Auto) 0.0, Baso % (Auto) 0.2, Absolute Neuts (auto) 3.9, Absolute Lymphs (auto) 1.74, Nucleated RBC % 0 03/10/20 11:28: Sodium 136, Potassium 4.1, Chloride 103, Carbon Dioxide 20.0 L, Anion Gap 13, BUN 66 H, Creatinine 13.00 H*, Estim Creat Clear Calc 5.93, Est GFR (MDRD) Af Amer 5 L, Est GFR (MDRD) Non-Af 4 L, BUN/Creatinine Ratio 5.1 L, Glucose 197 H, Calcium 9.5, Total Bilirubin 0.70, AST 32, ALT 40, Alkaline Phosphatase 48, Troponin I < 0.015, Total Protein 8.7 H, Albumin 3.2, Globulin 5.5 H, Albumin/Globulin Ratio 0.6 L 03/10/20 11:28: Lactic Acid 1.2 Chest x-ray reviewed and showed bilateral infiltrates. Current Medications Dexamethasone (Dexamethasone 4 Mg Tablet) 6 mg PO DAILY HERACLIO Last Admin: 03/10/20 12:47 Dose: 6 mg Documented by: Assessment/Plan All Active Problems (Last Reviewed 05/16/19 @ 08:49 by Lupe Morataya) Screening for intestinal cancer (Acute) COVID-19 (Acute) Problem with dialysis access (Acute) Hx of arteriovenostomy for renal dialysis (Acute) Status post insertion of dialysis catheter (Acute ~03/2018) History of colonoscopy (Acute) History of arthroscopy of knee (Acute) History of carpal tunnel release (Acute) Osteoarthritis (Acute) Gout (Acute) Diabetes (Acute) 1. acute COVID 19 pneumonia: continue dexamethasone for total of 10 days. Remdesivir for 5 days. Monitor labs. Stable on room air at rest. Check D-dimer, CRP, fibrinogen. Onset of symptoms on 03/07/2020. 2. ESRD: on PD. Nephrology on consult. 3. HTN: continue home meds. 4. VTE prophylaxis: LMWH. Refer to NIH guidelines (https://www.lioun74obcfvaywfecvxlyhhvw.nih.gov/adjunctive-therapy/antithrombotic-therapy/) and Chest guidelines (CHEST 2020; 158(3): 5014-0661). Inpatient E&M: 69635 Init Hosp L2
--- NOTE | 2020-03-10 15:11 | PCS.PANDOC ---
PANDEMIC DOCUMENTATION INITIATED: Date: 03/10/20 Time: 1500
[2020-03-10 16:21] LABS: Alkaline Phosphatase 45 U/L (45-117)
[2020-03-10 17:08] LABS: Fibrinogen 748 mg/dl (203-444)
[2020-03-10 17:09] LABS: D-Dimer Quantitative (DVT/PE) 0.41 FEU/ug/m (0.27-0.49)
--- NOTE | 2020-03-10 19:36 | DIALYSIS ---
CCPD initiated with 1.5% dextrose solution per order. Initial drain only 2ml, pt states this is normal for him. PD site dressing changed, site clean and nonred with no drainage noted. Pt in first dwell at this time. Pt tolerating procedure well.
[2020-03-10] MEDS: Carvedilol 25 MG Tablet PO (20:14)
[2020-03-11] VITALS (12 sets, daily range): BP systolic 126–143; BP diastolic 75–93; PULSE 61–89; RESP 16–22; TEMP 36.1–36.9; O2SAT 94–96
[2020-03-11 04:36] LABS: Hemoglobin 12.4 g/dL (13.0-16.5); Mean Corp Hgb Conc 34.4 g/dL (32-36); Mean Corpuscular Hgb 31.7 pg (27.0-32.0); Mean Corpuscular Volume 92.1 fL (80-94); Platelet Count 120 K/mm3 (150-450); RBC Distribution Width CV 13.1 % (11.6-14.6); RBC Distribution Width SD 42.9 fl (35.1-43.9); Red Blood Count 3.91 M/mm3 (4.6-6.2)
[2020-03-11 04:57] LABS: ALB/GLOB Ratio 0.5 RATIO (0.9-2.4); AST(SGOT) 29 U/L (15-37); Alanine Aminotransfer ALT/SGPT 37 U/L (16-61); Albumin, Serum 2.8 g/dL (3.2-5.0); Alkaline Phosphatase 46 U/L (45-117); Anion Gap 13 (5-15); BUN 77 mg/dL (7-18); BUN/Creat Ratio 5.5 RATIO (10-20); Calcium,Total 8.7 mg/dL (8.5-10.1); Chloride 102 mmol/L (98-107); EST Glomerular Filtration Rate 4 mL/min (>60); Est Glom Filt Rate - Afr Amer 5 mL/min (>60); Estimated Creatinine Clearance 5.46 ml/min; Globulin 5.6 g/dL (2.2-4.2); Glucose 291 mg/dL (74-106); Potassium 4.7 mmol/L (3.5-5.1); Protein, Total 8.4 g/dL (6.4-8.2); Sodium Level 134 mmol/L (136-145)
--- NOTE | 2020-03-11 08:36 | DIALYSIS ---
CCPD complete. Net UF 283ML. Pt tolerated well. See dialysis flow sheet.
[2020-03-11 08:47] LABS: White Blood Cells 0 SEEN /hpf (0-5)
[2020-03-11 08:51] LABS: Color, Urine Yellow (Yellow); Glucose, Dipstick 250 mg/dl (Normal); Ketone-Dipstick Negative (Negative); Leukocyte Esterase-Dipstick Negative /ul (Negative); Nitrite-Dipstick Negative (Negative); Occult Blood-Urine 25 /ul (Negative); Protein-Dipstick 500 mg/dl (Negative); Urine Bilirubin Dipstick Negative (Negative); Urine Clarity Sl. Cloudy (Clear); Urine Urobilinogen Normal (Normal)
[2020-03-11 08:59] LABS: Bacteria 1+ /hpf (None Seen); Mucous, Urine RARE /hpf (<or=2+); Red Blood Cells-Urine 0-5 SEEN /hpf (0-5); Squamous Epithelial Cells - UA 0-5 SEEN /hpf (0-5)
--- NOTE | 2020-03-11 10:07 | PCM.CONS.R ---
Consultation - Renal 03/11/20 PCP/ Referring MD: Requesting physician: [] Primary care physician: Dr. Anupam Daily MD Reason for Consultation:: ESRD on CCPD - History of Present Illness History of Present Illness: The patient is a 64 year old M well known to me with ESRD due to diabetes, hypertension on CCPD admitted for COVID pneumonia with hypoxia. He was started on decadron and remdesivir. Symptoms started last Tuesday with shortness of breath, cough, fever, chills, anorexia, loss of taste, nausea. Oxygen level stable on RA resting. No sick contacts at home. He received his PD treatment last night without issues. Continues to feel fatigued, poor appetite, weak. - Allergies Allergies: Allergies No Known Allergies Allergy (Verified 03/10/20 11:01) - Current Medications Current Medications: Current Medications Acetaminophen (Acetaminophen 325 Mg Tablet) 650 mg PO Q6H PRN PRN PRN Reason: Pain Score 1-10/Temp > 100.7 F Allopurinol (Allopurinol 100 Mg Tablet) 100 mg PO DAILY [facility] Amlodipine Besylate (Amlodipine 10 Mg Tablet) 10 mg PO DAILY [facility] Aspirin (Aspirin E.C. 81 Mg Tablet) 81 mg PO DAILY [facility] Atorvastatin Calcium (Atorvastatin Calcium 20 Mg Tablet) 20 mg PO DAILY [facility] Carvedilol (Carvedilol 25 Mg Tablet) 25 mg PO BID [facility] Last Admin: 03/10/20 20:14 Dose: 25 mg Documented by: Cholecalciferol (Cholecalciferol (Vit D3) 1,000 Unit (25mcg)) 2,000 unit PO DAILY [facility] Dexamethasone (Dexamethasone 4 Mg Tablet) 6 mg PO DAILY [facility] Enoxaparin Sodium (Enoxaparin 30 Mg/0.3 Ml Syringe) 30 mg SC DAILY [facility] Glimepiride (Glimepiride 4 Mg Tablet) 4 mg PO DAILY [facility] Hydralazine HCl (Hydralazine 50 Mg Tablet) 100 mg PO DAILY [facility] Remdesivir 100 mg/ Sodium (Chloride) 250 mls @ 125 mls/hr IV DAILY [facility] Stop: 03/14/20 11:59 Sodium Chloride () 250 mls @ 15 mls/hr IV .[id number] PRN PRN Reason: Saline Flush Sodium Chloride () 250 mls @ 15 mls/hr IV .[id number] PRN PRN Reason: Additional IVPB Infusion Lisinopril (Lisinopril 20 Mg Tablet) 20 mg PO DAILY [facility] Ondansetron HCl (Ondansetron 4 Mg/2 Ml Vial) 4 mg IV Q8H PRN PRN PRN Reason: NAUSEA/VOMITING Sodium Chloride (0.9% Saline Lock 10 Ml Syringe) 10 - 40 ml IV UD PRN PRN Reason: SALINE FLUSH - Past Medical History Past Medical History (Chronic Problems): Chronic Problems (Last Reviewed 03/10/20 @ 13:[address] Tyrone Lee DO) Chronic renal failure, stage 5 (Chronic) Chronic renal failure, stage 4 (severe) (Chronic) HTN (hypertension) (Chronic) Chronic renal failure, stage 4 (severe) (Chronic) - Social History Smoking Status: Never smoker - Family History Maternal Family History: Family History (Last Reviewed 03/10/20 @ 13:[address] Tyrone Lee DO) Father Diabetes Mother CVA (cerebral vascular accident) Hypertension Breast cancer Review of Systems Constitutional: Reports: Anorexia, Chills, Fever, Malaise, Weakness, Fatigue Eyes: Denies: Vision Change Cardiovascular: Reports: Chest Pain - chest wall pain with cough Respiratory: Reports: Cough, Shortness of breath upon exertion Gastrointestinal: Reports: Nausea, Vomiting. Denies: Abdominal Pain, Diarrhea Genitourinary: Denies: Dysuria Musculoskeletal: Reports: Muscle pain Skin: Denies: Rash Neurological: Denies: Tremor Psychiatric: Denies: Anxiety, Depression Hematologic/ Lymphatic: Reports: Anemia Patient Problems: Active and Suspected Problems (Last Reviewed 03/10/20 @ 13:[address] Tyrone Lee DO) COVID-19 (Acute) - Physical Exam Vitals/I&O's: Vital Signs Temp Pulse Resp BP Pulse Ox 98.0 F 62 19 H 126/85 H 94 03/11/20 04:00 03/11/20 04:00 03/11/20 04:00 03/11/20 04:00 03/11/20 04:00 Oxygen Delivery Method Room Air Weight: 102.5 kg Body Mass Index (BMI) 31.6 Finger Stick Blood Glucose 131 Intake and Output for Last 24 Hours 03/09/20 03/10/20 03/11/20 23:59 23:59 23:59 Intake Total 370 / 370 240 / 240 Output Total 0 / 0 283 / 283 Balance 370 / 370 -43 / -43 General: Alert, Oriented x3, Cooperative, No apparent distress Oral: Dry Mucosa Lungs: Clear to auscultation Cardiovascular: Regular rate Abdomen: Bowel Sounds Present, Soft, Non Tender, Non-Distended Extremities: No edema Musculoskeletal: No Muscle Wasting Psych/Mental Status: Normal Affect, Appropriate, Alert and oriented to time, place, person, mood and affect Microbiology Past 72 Hours 03/10/20 11:28 Mucosa - Nose SARS-CoV-2 Antigen (Rapid) - Final SARS-CoV-2 (COVID 19) Laboratory Results 03/10/20 11:28: WBC 6.2, RBC 4.46 L, Hgb 13.1, Hct 41.8, MCV 93.7, MCH 29.4, MCHC 31.3 L, RDW Std Deviation 45.1 H, RDW Coeff of Alexus 13.2, Plt Count 115 L, MPV 11.2, Immature Gran % (Auto) 0.200, Neut % (Auto) 63.5, Lymph % (Auto) 28.2, Snyder % (Auto) 7.9, Eos % (Auto) 0.0, Baso % (Auto) 0.2, Absolute Neuts (auto) 3.9, Absolute Lymphs (auto) 1.74, Nucleated RBC % 0 03/10/20 11:28: Sodium 136, Potassium 4.1, Chloride 103, Carbon Dioxide 20.0 L, Anion Gap 13, BUN 66 H, Creatinine 13.00 H*, Estim Creat Clear Calc 5.93, Est GFR (MDRD) Af Amer 5 L, Est GFR (MDRD) Non-Af 4 L, BUN/Creatinine Ratio 5.1 L, Glucose 197 H, Calcium 9.5, Total Bilirubin 0.70, AST 32, ALT 40, Alkaline Phosphatase 48, Troponin I < 0.015, Total Protein 8.7 H, Albumin 3.2, Globulin 5.5 H, Albumin/Globulin Ratio 0.6 L 03/10/20 11:28: Lactic Acid 1.2 03/10/20 15:30: Fibrinogen 748 H, D-Dimer Quant (PE/DVT) 0.41 03/10/20 15:30: Alkaline Phosphatase 45, C-React Prot Ext Range 140.00 H 03/11/20 04:20: WBC 4.0 L, RBC 3.91 L, Hgb 12.4 L, Hct 36.0 L, MCV 92.1, MCH 31.7, MCHC 34.4 D, RDW Std Deviation 42.9, RDW Coeff of Alexus 13.1, Plt Count 120 L, MPV 11.0 03/11/20 04:20: Sodium 134 L, Potassium 4.7, Chloride 102, Carbon Dioxide 19.0 L, Anion Gap 13, BUN 77 H, Creatinine 14.10 H*, Estim Creat Clear Calc 5.46, Est GFR (MDRD) Af Amer 5 L, Est GFR (MDRD) Non-Af 4 L, BUN/Creatinine Ratio 5.5 L, Glucose 291 H, Calcium 8.7, Total Bilirubin 0.40, AST 29, ALT 37, Alkaline Phosphatase 46, Total Protein 8.4 H, Albumin 2.8 L, Globulin 5.6 H, Albumin/Globulin Ratio 0.5 L 03/11/20 08:30: Urine Color Yellow, Urine Clarity Sl. Cloudy, Urine pH 5.0, Ur Specific [place] 1.020, Urine Protein 500 H, Urine Glucose (UA) 250 H, Urine Ketones Negative, Urine Occult Blood 25 H, Urine Nitrite Negative, Urine Bilirubin Negative, Urine Urobilinogen Normal, Ur Leukocyte Esterase Negative, Urine RBC 0-5 SEEN, Urine WBC 0 SEEN, Ur Squamous Epith Cells 0-5 SEEN, Urine Bacteria 1+, Urine Mucus RARE Clinical Impression(s) from Imaging Studies Chest X-Ray 03/10/20 11:11 IMPRESSION: Multiple bilateral patchy pulmonary infiltrates in a peripheral distribution. Covid should be ruled out. Electronically Signed: Jeremie Hess MD at 11:56 EST , Service support , Current Medications Acetaminophen (Acetaminophen 325 Mg Tablet) 650 mg PO Q6H PRN PRN PRN Reason: Pain Score 1-10/Temp > 100.7 F Allopurinol (Allopurinol 100 Mg Tablet) 100 mg PO DAILY [facility] Amlodipine Besylate (Amlodipine 10 Mg Tablet) 10 mg PO DAILY [facility] Aspirin (Aspirin E.C. 81 Mg Tablet) 81 mg PO DAILY [facility] Atorvastatin Calcium (Atorvastatin Calcium 20 Mg Tablet) 20 mg PO DAILY [facility] Carvedilol (Carvedilol 25 Mg Tablet) 25 mg PO BID [facility] Last Admin: 03/10/20 20:14 Dose: 25 mg Documented by: Cholecalciferol (Cholecalciferol (Vit D3) 1,000 Unit (25mcg)) 2,000 unit PO DAILY [facility] Dexamethasone (Dexamethasone 4 Mg Tablet) 6 mg PO DAILY [facility] Enoxaparin Sodium (Enoxaparin 30 Mg/0.3 Ml Syringe) 30 mg SC DAILY [facility] Glimepiride (Glimepiride 4 Mg Tablet) 4 mg PO DAILY [facility] Hydralazine HCl (Hydralazine 50 Mg Tablet) 100 mg PO DAILY [facility] Remdesivir 100 mg/ Sodium (Chloride) 250 mls @ 125 mls/hr IV DAILY [facility] Stop: 03/14/20 11:59 Sodium Chloride () 250 mls @ 15 mls/hr IV .[id number] PRN PRN Reason: Saline Flush Sodium Chloride () 250 mls @ 15 mls/hr IV .[id number] PRN PRN Reason: Additional IVPB Infusion Lisinopril (Lisinopril 20 Mg Tablet) 20 mg PO DAILY [facility] Ondansetron HCl (Ondansetron 4 Mg/2 Ml Vial) 4 mg IV Q8H PRN PRN PRN Reason: NAUSEA/VOMITING Sodium Chloride (0.9% Saline Lock 10 Ml Syringe) 10 - 40 ml IV UD PRN PRN Reason: SALINE FLUSH Assessment/Plan All Active Problems (Last Reviewed 03/10/20 @ 13:[address] Tyrone Lee, DO) Screening for intestinal cancer (Acute) COVID-19 (Acute) Problem with dialysis access (Acute) Hx of arteriovenostomy for renal dialysis (Acute) Status post insertion of dialysis catheter (Acute ~03/2018) History of colonoscopy (Acute) History of arthroscopy of knee (Acute) History of carpal tunnel release (Acute) Osteoarthritis (Acute) Gout (Acute) Diabetes (Acute) 1. ESRD on CCPD using all 1.5% dextrose 4 exchanges 2L fill volume 2. COVID 19 pneumonia on decadron, remdesivir 3. hypoxemia with activity, stable off oxygen 4. HTN BP stable 5. DM2 monitor sugars on decadron
--- NOTE | 2020-03-11 10:52 | CASEMGMT ---
RN CM Assessment Note Introduced role of CM to patient in room. Demographics, PCP verified. Pt is awake and alert and able to participate in assessment. Pt states he is independent at home and has not required assistance. He does home peritoneal dialysis and continues to work. When asked if he feels he is managing this schedule, the patient states it's fine and makes the days go quick. Patient was positive in conversation and denied any needs. Presentation: shortness of breath and nonproductive cough. Diagnosis: Acute COVID-19 pneumonia PCP: Dr. Daily Specialists: Dr. Hinojosa, nephrology Insurance: [facility] Preferred Pharmacy: [facility] Prescription Benefit: yes LNOK: Kavya Flores, Living Arrangements: Lives independently with . States he currently does not required assist with ADL or IADL's. States he still works, drives and no care needs identified. DME: none per pt except dialysis equipment HHC: none SNF: none Patient DC Goals: Home DC Plan: anticipate home on discharge. CM requested pt contact if any concerns re: dc arise. Ian VASQUESN RN ACM
[2020-03-11] MEDS: hydrALAZINE 50 MG Tablet 100 MG PO (11:23)
[2020-03-11] MEDS: Glimepiride 4 MG Tablet PO (11:23)
[2020-03-11] MEDS: Atorvastatin Calcium 20 MG Tablet PO (11:24)
[2020-03-11] MEDS: Enoxaparin 30 MG/0.3 ML Syringe SC (11:24)
[2020-03-11] MEDS: amLODIPine 10 MG Tablet PO (11:24)
[2020-03-11] MEDS: Carvedilol 25 MG Tablet PO ×2 (11:24→20:38)
[2020-03-11] MEDS: Aspirin E.C. 81 MG Tablet PO (11:24)
[2020-03-11] MEDS: Allopurinol 100 MG Tablet PO (11:24)
[2020-03-11] MEDS: Lisinopril 20 MG Tablet PO (11:24)
[2020-03-11] MEDS: dexAMETHasone 4 MG Tablet 6 MG PO (11:24)
--- NOTE | 2020-03-11 12:11 | CASEMGMT ---
RN CM Assessment Note Introduced role of CM to patient in room. Demographics, PCP verified. Pt is awake and alert and able to participate in assessment. Pt states he is independent at home and has not required assistance. He does home peritoneal dialysis and continues to work. When asked if he feels he is managing this schedule, the patient states it's fine and makes the days go quick. Patient was positive in conversation and denied any needs. Presentation: shortness of breath and nonproductive cough. Diagnosis: Acute COVID-19 pneumonia PCP: Dr. Daily Specialists: Dr. Hinojosa, nephrology Insurance: [facility] Preferred Pharmacy: [facility] Prescription Benefit: yes LNOK: Kavya Flores, Living Arrangements: Lives independently with . States he currently does not required assist with ADL or IADL's. States he still works, drives and no care needs identified. DME: none per pt except dialysis equipment and BGM. states no difficulty obtaining supplies. HHC: none SNF: none Patient DC Goals: Home DC Plan: anticipate home on discharge. CM requested pt contact if any concerns re: dc arise. Ian BRYSON RN ACM
--- NOTE | 2020-03-11 12:33 | PN_ITS ---
Patient Problems: Active and Suspected Problems (Last Reviewed 03/10/20 @ 13:[address] Tyrone Lee, DO) COVID-19 (Acute) Subjective: No change. Did feel SOB when he got up to the commode. Vitals/I&O's: Vital Signs Temp Pulse Resp BP Pulse Ox 36.9 C 87 22 H 137/75 H 94 03/11/20 10:00 03/11/20 11:23 03/11/20 10:00 03/11/20 10:00 03/11/20 10:00 Oxygen Delivery Method Room Air Weight: 102.5 kg Body Mass Index (BMI) 31.6 Finger Stick Blood Glucose 131 Intake and Output for Last 24 Hours 03/09/20 03/10/20 03/11/20 23:59 23:59 23:59 Intake Total 370 / 370 240 / 240 Output Total 0 / 0 483 / 483 Balance 370 / 370 -243 / -243 General: Alert, No apparent distress HEENT: Atraumatic, Normocephalic Oral: Moist Mucosa, No Gingival or Mucosal Lesions/ Ulcerations Neck: No Nodes, Thyroid Normal Size and Texture Lungs: Clear to auscultation, Normal air movement, No rhonchi, No wheeze, No rales Cardiovascular: Regular rate, Regular Rhythm, Normal S1, Normal S2, No murmurs Abdomen: Bowel Sounds Present, Soft, Non Tender, Non-Distended, No Hepato- splenomegaly Extremities: No edema, No Calf Tenderness Skin: No rashes, No breakdown Psych/Mental Status: Normal Affect, Appropriate Microbiology Past 72 Hours 03/10/20 11:28 Mucosa - Nose SARS-CoV-2 Antigen (Rapid) - Final SARS-CoV-2 (COVID 19) Laboratory Results 03/10/20 15:30: Fibrinogen 748 H, D-Dimer Quant (PE/DVT) 0.41 03/10/20 15:30: Alkaline Phosphatase 45, C-React Prot Ext Range 140.00 H 03/11/20 04:20: WBC 4.0 L, RBC 3.91 L, Hgb 12.4 L, Hct 36.0 L, MCV 92.1, MCH 31.7, MCHC 34.4 D, RDW Std Deviation 42.9, RDW Coeff of Alexus 13.1, Plt Count 120 L, MPV 11.0 03/11/20 04:20: Sodium 134 L, Potassium 4.7, Chloride 102, Carbon Dioxide 19.0 L , Anion Gap 13, BUN 77 H, Creatinine 14.10 H*, Estim Creat Clear Calc 5.46, Est GFR (MDRD) Af Amer 5 L, Est GFR (MDRD) Non-Af 4 L, BUN/Creatinine Ratio 5.5 L, Glucose 291 H, Calcium 8.7, Total Bilirubin 0.40, AST 29, ALT 37, Alkaline Phosphatase 46, Total Protein 8.4 H, Albumin 2.8 L, Globulin 5.6 H, Albumin/Globulin Ratio 0.5 L 03/11/20 08:30: Urine Color Yellow, Urine Clarity Sl. Cloudy, Urine pH 5.0, Ur Specific [place] 1.020, Urine Protein 500 H, Urine Glucose (UA) 250 H, Urine Ketones Negative, Urine Occult Blood 25 H, Urine Nitrite Negative, Urine Bilirubin Negative, Urine Urobilinogen Normal, Ur Leukocyte Esterase Negative, Urine RBC 0-5 SEEN, Urine WBC 0 SEEN, Ur Squamous Epith Cells 0-5 SEEN, Urine Bacteria 1+, Urine Mucus RARE Current Medications Acetaminophen (Acetaminophen 325 Mg Tablet) 650 mg PO Q6H PRN PRN PRN Reason: Pain Score 1-10/Temp > 100.7 F Allopurinol (Allopurinol 100 Mg Tablet) 100 mg PO DAILY [facility] Last Admin: 03/11/20 11:24 Dose: 100 mg Documented by: Amlodipine Besylate (Amlodipine 10 Mg Tablet) 10 mg PO DAILY [facility] Last Admin: 03/11/20 11:24 Dose: 10 mg Documented by: Aspirin (Aspirin E.C. 81 Mg Tablet) 81 mg PO DAILY [facility] Last Admin: 03/11/20 11:24 Dose: 81 mg Documented by: Atorvastatin Calcium (Atorvastatin Calcium 20 Mg Tablet) 20 mg PO DAILY [facility] Last Admin: 03/11/20 11:24 Dose: 20 mg Documented by: Carvedilol (Carvedilol 25 Mg Tablet) 25 mg PO BID [facility] Last Admin: 03/11/20 11:24 Dose: 25 mg Documented by: Cholecalciferol (Cholecalciferol (Vit D3) 1,000 Unit (25mcg)) 2,000 unit PO DAILY [facility] Last Admin: 03/11/20 11:24 Dose: 2,000 unit Documented by: Dexamethasone (Dexamethasone 4 Mg Tablet) 6 mg PO DAILY [facility] Last Admin: 03/11/20 11:24 Dose: 6 mg Documented by: Enoxaparin Sodium (Enoxaparin 30 Mg/0.3 Ml Syringe) 30 mg SC DAILY [facility] Last Admin: 03/11/20 11:24 Dose: 30 mg Documented by: Glimepiride (Glimepiride 4 Mg Tablet) 4 mg PO DAILY [facility] Last Admin: 03/11/20 11:23 Dose: 4 mg Documented by: Hydralazine HCl (Hydralazine 50 Mg Tablet) 100 mg PO DAILY [facility] Last Admin: 03/11/20 11:23 Dose: 100 mg Documented by: Remdesivir 100 mg/ Sodium (Chloride) 250 mls @ 125 mls/hr IV DAILY [facility] Stop: 03/14/20 11:59 Last Admin: 03/11/20 11:24 Dose: 125 mls/hr Documented by: Sodium Chloride () 250 mls @ 15 mls/hr IV .[id number] PRN PRN Reason: Saline Flush Sodium Chloride () 250 mls @ 15 mls/hr IV .[id number] PRN PRN Reason: Additional IVPB Infusion Lisinopril (Lisinopril 20 Mg Tablet) 20 mg PO DAILY [facility] Last Admin: 03/11/20 11:24 Dose: 20 mg Documented by: Ondansetron HCl (Ondansetron 4 Mg/2 Ml Vial) 4 mg IV Q8H PRN PRN PRN Reason: NAUSEA/VOMITING Sodium Chloride (0.9% Saline Lock 10 Ml Syringe) 10 - 40 ml IV UD PRN PRN Reason: SALINE FLUSH STROKE Vital Signs/Narrative: Vital Signs Temp Pulse Resp BP Pulse Ox 03/11/20 11:23 87 03/11/20 11:05 61 03/11/20 10:00 36.9 C 62 22 H 137/75 H 94 Medical Necessity - Tobacco Use Smoking Status: Never smoker Tobacco Use: Non-smoker Assessment/Plan All Active Problems (Last Reviewed 03/10/20 @ 13:[address] Tyrone Lee, DO) Screening for intestinal cancer (Acute) COVID-19 (Acute) Problem with dialysis access (Acute) Hx of arteriovenostomy for renal dialysis (Acute) Status post insertion of dialysis catheter (Acute ~03/2018) History of colonoscopy (Acute) History of arthroscopy of knee (Acute) History of carpal tunnel release (Acute) Osteoarthritis (Acute) Gout (Acute) Diabetes (Acute) 1. acute COVID 19 pneumonia: continue dexamethasone for total of 10 days. Remdesivir for 5 days. Monitor labs. Stable on room air at rest. Onset of symptoms on 03/07/2020. 2. ESRD: on PD. Nephrology on consult. 3. HTN: continue home meds. 4. VTE prophylaxis: LMWH. Refer to NIH guidelines (https://www.daecd23qfwqnerpgdpsjcvoyuz.nih.gov/adjunctive-therapy/antithromboti c-therapy/) and Chest guidelines (CHEST 2020; 158(3): 4484-5556).
--- NOTE | 2020-03-11 18:13 | DIALYSIS ---
CCPD initiated using 2 bags of 1.5% dextrose solution. LLQ PD dressing changed. site cleansed. no signs of redness or tenderness. first drain and first fill completed. pt matthew well. 4 fills, fill volume 2000ml. total volume 8000ml. total time 10 hrs. Report to Saria.
[2020-03-11] MEDS: 0.9% Saline Lock 10 ML Syringe IV (20:41)
[2020-03-12] VITALS (11 sets, daily range): BP systolic 108–135; BP diastolic 73–95; PULSE 58–70; RESP 16–18; TEMP 36.4–36.8; O2SAT 94–95
--- NOTE | 2020-03-12 08:03 | DIALYSIS ---
CCPD tx complete. Stay safe cap applied using aseptic technique. Fluid-Positive 311ml post tx. Effluent drainage is pale yellow and clear. No fibrin noted. Dressing is dry and intact. Report was given to TAMEKA Harris
--- NOTE | 2020-03-12 08:49 | PN.RENAL_ITS ---
Patient Problems: Active and Suspected Problems (Last Reviewed 03/10/20 @ 13:[address] Tyrone Lee, DO) COVID-19 (Acute) Subjective: retained 311ccc last night, vitals stable, labs reviewed. Transferred out of ICU. Cough, SOB improving. Still weak, loss of taste, poor appetite. - Physical Exam Vitals/I&O's: Vital Signs Temp Pulse Resp BP Pulse Ox 98.1 F 58 L 16 135/95 H 94 03/12/20 03:09 03/12/20 07:22 03/12/20 03:09 03/12/20 03:09 03/12/20 03:09 Oxygen Delivery Method Room Air Weight: 102.2 kg Body Mass Index (BMI) 31.6 Finger Stick Blood Glucose 131 Intake and Output for Last 24 Hours 03/10/20 03/11/20 03/12/20 23:59 23:59 23:59 Intake Total 370 / 370 790 / 790 200 / 200 Output Total 0 / 0 483 / 483 Balance 370 / 370 307 / 307 200 / 200 General: Alert, Oriented x3, Cooperative Lungs: Clear to auscultation Cardiovascular: Regular rate Abdomen: Bowel Sounds Present, Soft, Non Tender, Non-Distended Extremities: No edema Psych/Mental Status: Alert and oriented to time, place, person, mood and affect Microbiology Past 72 Hours 03/10/20 11:28 Mucosa - Nose SARS-CoV-2 Antigen (Rapid) - Final SARS-CoV-2 (COVID 19) Laboratory Results 03/11/20 08:30: Urine Color Yellow, Urine Clarity Sl. Cloudy, Urine pH 5.0, Ur Specific [place] 1.020, Urine Protein 500 H, Urine Glucose (UA) 250 H, Urine Ketones Negative, Urine Occult Blood 25 H, Urine Nitrite Negative, Urine Bilirubin Negative, Urine Urobilinogen Normal, Ur Leukocyte Esterase Negative, Urine RBC 0-5 SEEN, Urine WBC 0 SEEN, Ur Squamous Epith Cells 0-5 SEEN, Urine Bacteria 1+, Urine Mucus RARE Current Medications Acetaminophen (Acetaminophen 325 Mg Tablet) 650 mg PO Q6H PRN PRN PRN Reason: Pain Score 1-10/Temp > 100.7 F Allopurinol (Allopurinol 100 Mg Tablet) 100 mg PO DAILY [facility] Last Admin: 03/11/20 11:24 Dose: 100 mg Documented by: Amlodipine Besylate (Amlodipine 10 Mg Tablet) 10 mg PO DAILY [facility] Last Admin: 03/11/20 11:24 Dose: 10 mg Documented by: Aspirin (Aspirin E.C. 81 Mg Tablet) 81 mg PO DAILY [facility] Last Admin: 03/11/20 11:24 Dose: 81 mg Documented by: Atorvastatin Calcium (Atorvastatin Calcium 20 Mg Tablet) 20 mg PO DAILY [facility] Last Admin: 03/11/20 11:24 Dose: 20 mg Documented by: Carvedilol (Carvedilol 25 Mg Tablet) 25 mg PO BID [facility] Last Admin: 03/11/20 20:38 Dose: 25 mg Documented by: Cholecalciferol (Cholecalciferol (Vit D3) 1,000 Unit (25mcg)) 2,000 unit PO DAILY [facility] Last Admin: 03/11/20 11:24 Dose: 2,000 unit Documented by: Dexamethasone (Dexamethasone 4 Mg Tablet) 6 mg PO DAILY [facility] Last Admin: 03/11/20 11:24 Dose: 6 mg Documented by: Enoxaparin Sodium (Enoxaparin 30 Mg/0.3 Ml Syringe) 30 mg SC DAILY [facility] Last Admin: 03/11/20 11:24 Dose: 30 mg Documented by: Glimepiride (Glimepiride 4 Mg Tablet) 4 mg PO DAILY [facility] Last Admin: 03/11/20 11:23 Dose: 4 mg Documented by: Hydralazine HCl (Hydralazine 50 Mg Tablet) 100 mg PO DAILY [facility] Last Admin: 03/11/20 11:23 Dose: 100 mg Documented by: Remdesivir 100 mg/ Sodium (Chloride) 250 mls @ 125 mls/hr IV DAILY [facility] Stop: 03/14/20 11:59 Last Infusion: 03/11/20 14:02 Dose: Infused Documented by: Sodium Chloride () 250 mls @ 15 mls/hr IV .[id number] PRN PRN Reason: Saline Flush Sodium Chloride () 250 mls @ 15 mls/hr IV .[id number] PRN PRN Reason: Additional IVPB Infusion Lisinopril (Lisinopril 20 Mg Tablet) 20 mg PO DAILY [facility] Last Admin: 03/11/20 11:24 Dose: 20 mg Documented by: Ondansetron HCl (Ondansetron 4 Mg/2 Ml Vial) 4 mg IV Q8H PRN PRN PRN Reason: NAUSEA/VOMITING Sodium Chloride (0.9% Saline Lock 10 Ml Syringe) 10 - 40 ml IV UD PRN PRN Reason: SALINE FLUSH Last Admin: 03/11/20 20:41 Dose: 10 ml Documented by: Medical Necessity - Tobacco Use Smoking Status: Never smoker Tobacco Use: Non-smoker Assessment/Plan All Active Problems (Last Reviewed 03/10/20 @ 13:[address] Tyrone Lee, DO) Screening for intestinal cancer (Acute) COVID-19 (Acute) Problem with dialysis access (Acute) Hx of arteriovenostomy for renal dialysis (Acute) Status post insertion of dialysis catheter (Acute ~03/2018) History of colonoscopy (Acute) History of arthroscopy of knee (Acute) History of carpal tunnel release (Acute) Osteoarthritis (Acute) Gout (Acute) Diabetes (Acute) 1. ESRD on CCPD using 1.5% and 2.5% dextrose tonight 4 exchanges every 2hrs, 2L fill volumes 2. COVID 19 pneumonia on decadron, remdesivir 3. hypoxemia with activity, stable off oxygen 4. HTN BP stable 5. DM2 monitor sugars on decadron
[2020-03-12] MEDS: Allopurinol 100 MG Tablet PO (10:39)
[2020-03-12] MEDS: amLODIPine 10 MG Tablet PO (10:39)
[2020-03-12] MEDS: Glimepiride 4 MG Tablet PO (10:39)
[2020-03-12] MEDS: Aspirin E.C. 81 MG Tablet PO (10:40)
[2020-03-12] MEDS: Lisinopril 20 MG Tablet PO (10:40)
[2020-03-12] MEDS: Carvedilol 25 MG Tablet PO ×2 (10:40→22:16)
[2020-03-12] MEDS: hydrALAZINE 50 MG Tablet 100 MG PO (10:40)
[2020-03-12] MEDS: dexAMETHasone 4 MG Tablet 6 MG PO (10:40)
[2020-03-12] MEDS: Atorvastatin Calcium 20 MG Tablet PO (10:40)
[2020-03-12] MEDS: Enoxaparin 30 MG/0.3 ML Syringe SC (10:41)
--- NOTE | 2020-03-12 14:14 | PCM.PN.HOSP ---
Patient Problems: Active and Suspected Problems (Last Reviewed 03/10/20 @ 13:[address] Tyrone Lee, DO) COVID-19 (Acute) Subjective: Feeling better. Less SOB with ambulation. Vitals/I&O's: Vital Signs Temp Pulse Resp BP Pulse Ox 36.7 C 61 16 115/78 95 03/12/20 08:49 03/12/20 12:55 03/12/20 08:49 03/12/20 08:49 03/12/20 08:49 Oxygen Delivery Method Room Air Weight: 102.2 kg Body Mass Index (BMI) 31.6 Finger Stick Blood Glucose 131 Intake and Output for Last 24 Hours 03/10/20 03/11/20 03/12/20 23:59 23:59 23:59 Intake Total 370 / 370 790 / 790 450 / 450 Output Total 0 / 0 483 / 483 Balance 370 / 370 307 / 307 450 / 450 General: Alert, No apparent distress HEENT: Atraumatic, Normocephalic Oral: Moist Mucosa, No Gingival or Mucosal Lesions/ Ulcerations Neck: No Nodes, Thyroid Normal Size and Texture Lungs: Clear to auscultation, Normal air movement, No rhonchi, No wheeze, No rales Cardiovascular: Regular rate, Regular Rhythm, Normal S1, Normal S2 Abdomen: Bowel Sounds Present, Soft, Non Tender, Non-Distended Extremities: No edema, No Calf Tenderness Microbiology Past 72 Hours 03/10/20 11:28 Mucosa - Nose SARS-CoV-2 Antigen (Rapid) - Final SARS-CoV-2 (COVID 19) Current Medications Acetaminophen (Acetaminophen 325 Mg Tablet) 650 mg PO Q6H PRN PRN PRN Reason: Pain Score 1-10/Temp > 100.7 F Allopurinol (Allopurinol 100 Mg Tablet) 100 mg PO DAILY [facility] Last Admin: 03/12/20 10:39 Dose: 100 mg Documented by: Amlodipine Besylate (Amlodipine 10 Mg Tablet) 10 mg PO DAILY [facility] Last Admin: 03/12/20 10:39 Dose: 10 mg Documented by: Aspirin (Aspirin E.C. 81 Mg Tablet) 81 mg PO DAILY [facility] Last Admin: 03/12/20 10:40 Dose: 81 mg Documented by: Atorvastatin Calcium (Atorvastatin Calcium 20 Mg Tablet) 20 mg PO DAILY [facility] Last Admin: 03/12/20 10:40 Dose: 20 mg Documented by: Carvedilol (Carvedilol 25 Mg Tablet) 25 mg PO BID [facility] Last Admin: 03/12/20 10:40 Dose: 25 mg Documented by: Cholecalciferol (Cholecalciferol (Vit D3) 1,000 Unit (25mcg)) 2,000 unit PO DAILY [facility] Last Admin: 03/12/20 10:40 Dose: 2,000 unit Documented by: Dexamethasone (Dexamethasone 4 Mg Tablet) 6 mg PO DAILY [facility] Last Admin: 03/12/20 10:40 Dose: 6 mg Documented by: Enoxaparin Sodium (Enoxaparin 30 Mg/0.3 Ml Syringe) 30 mg SC DAILY [facility] Last Admin: 03/12/20 10:41 Dose: 30 mg Documented by: Glimepiride (Glimepiride 4 Mg Tablet) 4 mg PO DAILY [facility] Last Admin: 03/12/20 10:39 Dose: 4 mg Documented by: Hydralazine HCl (Hydralazine 50 Mg Tablet) 100 mg PO DAILY [facility] Last Admin: 03/12/20 10:40 Dose: 100 mg Documented by: Remdesivir 100 mg/ Sodium (Chloride) 250 mls @ 125 mls/hr IV DAILY [facility] Stop: 03/14/20 11:59 Last Infusion: 03/12/20 12:41 Dose: Infused Documented by: Sodium Chloride () 250 mls @ 15 mls/hr IV .[id number] PRN PRN Reason: Saline Flush Sodium Chloride () 250 mls @ 15 mls/hr IV .[id number] PRN PRN Reason: Additional IVPB Infusion Lisinopril (Lisinopril 20 Mg Tablet) 20 mg PO DAILY [facility] Last Admin: 03/12/20 10:40 Dose: 20 mg Documented by: Ondansetron HCl (Ondansetron 4 Mg/2 Ml Vial) 4 mg IV Q8H PRN PRN PRN Reason: NAUSEA/VOMITING Sodium Chloride (0.9% Saline Lock 10 Ml Syringe) 10 - 40 ml IV UD PRN PRN Reason: SALINE FLUSH Last Admin: 03/11/20 20:41 Dose: 10 ml Documented by: STROKE Vital Signs/Narrative: Vital Signs Pulse 03/12/20 12:55 61 03/12/20 10:40 70 Medical Necessity - Tobacco Use Smoking Status: Never smoker Tobacco Use: Non-smoker Assessment/Plan All Active Problems (Last Reviewed 03/10/20 @ 13:[address] Tyrone Lee, DO) Screening for intestinal cancer (Acute) COVID-19 (Acute) Problem with dialysis access (Acute) Hx of arteriovenostomy for renal dialysis (Acute) Status post insertion of dialysis catheter (Acute ~03/2018) History of colonoscopy (Acute) History of arthroscopy of knee (Acute) History of carpal tunnel release (Acute) Osteoarthritis (Acute) Gout (Acute) Diabetes (Acute) 1. acute COVID 19 pneumonia: continue dexamethasone for total of 10 days. Remdesivir for 5 days. Monitor labs. Stable on room air at rest. Onset of symptoms on 03/07/2020. 2. ESRD: on PD. Nephrology on consult. 3. HTN: continue home meds. 4. VTE prophylaxis: LMWH. Refer to NIH guidelines (https://www.rumtq84iteruyqxglxyijnlkdm.nih.gov/adjunctive-therapy/antithrombotic-therapy/) and Chest guidelines (CHEST 2020; 158(3): 2619-8366). Inpatient E&M: 71237 Subs Hosp L2
--- NOTE | 2020-03-12 18:43 | NURSING ---
Daughter Avril Correa called and wanted information on status of father. Mr. Flores okayed via phone thta it was okay to give his daughter information.
--- NOTE | 2020-03-12 20:49 | DIALYSIS ---
CCPD initiated using aseptic technique. Using 1 bag of 1.5% and 1 bag of 2.5% dextrose solution. Dressing changed. No problems noted. Initial drain of 261ml. Report was given to TAMEKA Gavin.
[2020-03-13 01:21] VITALS: BP 122/84; PULSE 60; RESP 16; TEMP 36.3; O2SAT 98
[2020-03-13 04:00] VITALS: PULSE 61
[2020-03-13 06:30] LABS: ALB/GLOB Ratio 0.7 RATIO (0.9-2.4); AST(SGOT) 15 U/L (15-37); Alanine Aminotransfer ALT/SGPT 28 U/L (16-61); Albumin, Serum 2.7 g/dL (3.2-5.0); Alkaline Phosphatase 50 U/L (45-117); Anion Gap 19 (5-15); BUN 120 mg/dL (7-18); BUN/Creat Ratio 7.4 RATIO (10-20); Calcium,Total 7.9 mg/dL (8.5-10.1); Chloride 97 mmol/L (98-107); EST Glomerular Filtration Rate 3 mL/min (>60); Est Glom Filt Rate - Afr Amer 4 mL/min (>60); Estimated Creatinine Clearance 4.73 ml/min; Globulin 4.1 g/dL (2.2-4.2); Glucose 386 mg/dL (74-106); Potassium 4.6 mmol/L (3.5-5.1); Protein, Total 6.8 g/dL (6.4-8.2); Sodium Level 133 mmol/L (136-145)
--- NOTE | 2020-03-13 07:16 | BH.SGPN.T2 ---
CCPD completed pt disconnected using aseptic technique. UF -748mL removed. Pt stable with no complaints. Dressing dry and intact. Effluent pale clear yellow no fibrin noted. report to floor RN.
[2020-03-13 08:58] VITALS: BP 107/78; PULSE 62
[2020-03-13] MEDS: hydrALAZINE 50 MG Tablet 100 MG PO (08:58)
[2020-03-13] MEDS: Enoxaparin 30 MG/0.3 ML Syringe SC (08:58)
[2020-03-13] MEDS: dexAMETHasone 4 MG Tablet 6 MG PO (08:58)
[2020-03-13] MEDS: Allopurinol 100 MG Tablet PO (08:58)
[2020-03-13] MEDS: Carvedilol 25 MG Tablet PO (08:58)
[2020-03-13] MEDS: amLODIPine 10 MG Tablet PO (08:59)
[2020-03-13] MEDS: Lisinopril 20 MG Tablet PO (08:59)
[2020-03-13] MEDS: Aspirin E.C. 81 MG Tablet PO (08:59)
[2020-03-13] MEDS: Atorvastatin Calcium 20 MG Tablet PO (08:59)
[2020-03-13] MEDS: Glimepiride 4 MG Tablet PO (08:59)
[2020-03-13 09:02] VITALS: BP 107/78; PULSE 62; RESP 18; TEMP 36.4; O2SAT 95
[2020-03-13] MEDS: 0.9% Saline Lock 10 ML Syringe IV (09:28)
--- NOTE | 2020-03-13 10:56 | PCM.DC ---
- Discharge Diagnoses Current Active Problems: Current Active and Chronic Problems (Last Reviewed 03/10/20 @ 13:[address] Tyrone Lee, DO) COVID-19 (Acute) You will use the following diet at home:: Renal (restricted protein/sodium) Your food should be the consistency of: Regular Your liquids should be the consistency of: Regular/Thin Discharge Activity: Return to Normal Activity Call your doctor if you observe: Fever of 101 or Higher, Shortness of breath Additional Instructions: Self isolate for at least 20 days since symptoms began 03/07-03/20/2020 AND at least one day (24 hours) have passed since resolution of fever without the use of fever-reducing agents AND improvement of symptoms (e.g., cough, shortness of breath) When around people in the same room, wear a face mask. Individuals also in the room should wear a mask. If possible, use a different bathroom and bedroom. Perform adequate hand hygiene. Avoid sharing dishes, glasses, etc. Allergies/Adverse Reactions: Allergies No Known Allergies Allergy (Verified 03/10/20 11:01) Medications to take at Discharge Allopurinol [Zyloprim] 100 mg PO DAILYCM 04/14/17 Amlodipine [Norvasc] 10 mg PO DAILY 04/14/17 Cholecalciferol (Vitamin D3) [Vitamin D3] 2,000 unit PO DAILY 04/14/17 Lisinopril [Zestril] 20 mg PO DAILY 04/14/17 Lovastatin [Mevacor] 80 mg PO DAILY 04/14/17 hydrALAZINE [Apresoline] 100 mg PO DAILY 04/14/17 aspirin 81 mg tablet,delayed release 81 mg PO DAILY 03/20/18 carvedilol 25 mg tablet 25 mg PO BID 03/20/18 Glimepiride 4 mg PO DAILY 03/29/18 Dexamethasone [Decadron] 6 mg PO DAILY #6 tab 03/13/20 The following prescriptions were given: Dexamethasone [Decadron] 6 mg PO DAILY #6 tab Transmission Status: Pending to [facility] Primary Care Physician: Anupam Daily MD [Primary Care Provider] - Within 2 Weeks Test Results: Test results from this visit will be discussed in further detail at your follow-up appointment, if applicable. Proposed Discharge Date: 03/13/20
--- NOTE | 2020-03-13 10:58 | PCM.DC.SUM ---
Discharge Date and Diagnosis - Problem List Patient Problems: Active and Suspected Problems (Last Reviewed 03/10/20 @ 13:[address] Tyrone Lee DO) COVID-19 (Acute) Date of Admission: 03/10/20 Date of Discharge: 03/13/20 - Primary Discharge Diagnosis Acute Problems: Active Problems (Last Reviewed 03/10/20 @ 13:[address] Tyrone Lee DO) COVID-19 (Acute) - Secondary Discharge Diagnosis Chronic Problems: Chronic Problems (Last Reviewed 03/10/20 @ 13:[address] Tyrone Lee DO) Chronic renal failure, stage 5 (Chronic) Chronic renal failure, stage 4 (severe) (Chronic) HTN (hypertension) (Chronic) Chronic renal failure, stage 4 (severe) (Chronic) Hospital Course and Treatment Imaging Results: Clinical Impression(s) from Imaging Studies Chest X-Ray 03/10/20 11:11 IMPRESSION: Multiple bilateral patchy pulmonary infiltrates in a peripheral distribution. Covid should be ruled out. Electronically Signed: Jeremie Hess MD at 11:56 EST , Service support , [facility] neph[facility] Operations: None Procedures: Dialysis Summary of Care Provided: The patient is a 64 year old M presents with shortness of breath. Patient was stable on room air but ambulated dropped in the 80% range subsequently admitted. Patient was started on remdesivir as well as dexamethasone. Patient completed 4 days of remdesivir and patient will continue with dexamethasone for total of 10 days. Patient has remained stable during this hospitalization. Patient is on peritoneal dialysis and nephrology was consulted to continue with that. Patient tolerated that well. Patient's IMPROVE VTE score was 1% and therefore will not require VTE prophylaxis upon discharge. [] Patient Problems: Active and Suspected Problems (Last Reviewed 03/10/20 @ 13:[address] Tyrone Lee DO) COVID-19 (Acute) - Physical Exam Vitals/I&O's: Vital Signs Temp Pulse Resp BP Pulse Ox 36.4 C L 62 18 107/78 95 03/13/20 09:02 03/13/20 09:02 03/13/20 09:02 03/13/20 09:02 03/13/20 09:02 Oxygen Delivery Method Room Air Weight: 101.378 kg Body Mass Index (BMI) 31.6 Finger Stick Blood Glucose 131 Intake and Output for Last 24 Hours 03/11/20 03/12/20 03/13/20 23:59 23:59 23:59 Intake Total 790 / 790 450 / 450 Output Total 483 / 483 748 / 748 Balance 307 / 307 450 / 450 -748 / -748 General: Alert, No apparent distress HEENT: Atraumatic, Normocephalic Oral: Moist Mucosa, No Gingival or Mucosal Lesions/ Ulcerations Neck: No Nodes, Thyroid Normal Size and Texture Lungs: Clear to auscultation, Normal air movement, No rhonchi, No wheeze Cardiovascular: Regular rate, Regular Rhythm, Normal S1, Normal S2 Abdomen: Bowel Sounds Present, Soft, Non Tender, Non-Distended, No Hepato-splenomegaly Extremities: No edema, No Calf Tenderness Microbiology Past 72 Hours 03/10/20 11:28 Mucosa - Nose SARS-CoV-2 Antigen (Rapid) - Final SARS-CoV-2 (COVID 19) Laboratory Results 03/13/20 04:58: Sodium 133 L, Potassium 4.6, Chloride 97 L, Carbon Dioxide 17.0 L, Anion Gap 19 H, BUN 120 H*, Creatinine 16.30 H*, Estim Creat Clear Calc 4.73, Est GFR (MDRD) Af Amer 4 L, Est GFR (MDRD) Non-Af 3 L, BUN/Creatinine Ratio 7.4 L, Glucose 386 H, Calcium 7.9 L, Total Bilirubin 0.30, AST 15, ALT 28, Alkaline Phosphatase 50, Total Protein 6.8, Albumin 2.7 L, Globulin 4.1, Albumin/Globulin Ratio 0.7 L Current Medications Acetaminophen (Acetaminophen 325 Mg Tablet) 650 mg PO Q6H PRN PRN PRN Reason: Pain Score 1-10/Temp > 100.7 F Allopurinol (Allopurinol 100 Mg Tablet) 100 mg PO DAILY [facility] Last Admin: 03/13/20 08:58 Dose: 100 mg Documented by: Amlodipine Besylate (Amlodipine 10 Mg Tablet) 10 mg PO DAILY [facility] Last Admin: 03/13/20 08:59 Dose: 10 mg Documented by: Aspirin (Aspirin E.C. 81 Mg Tablet) 81 mg PO DAILY [facility] Last Admin: 03/13/20 08:59 Dose: 81 mg Documented by: Atorvastatin Calcium (Atorvastatin Calcium 20 Mg Tablet) 20 mg PO DAILY [facility] Last Admin: 03/13/20 08:59 Dose: 20 mg Documented by: Carvedilol (Carvedilol 25 Mg Tablet) 25 mg PO BID [facility] Last Admin: 03/13/20 08:58 Dose: 25 mg Documented by: Cholecalciferol (Cholecalciferol (Vit D3) 1,000 Unit (25mcg)) 2,000 unit PO DAILY [facility] Last Admin: 03/13/20 08:59 Dose: 2,000 unit Documented by: Dexamethasone (Dexamethasone 4 Mg Tablet) 6 mg PO DAILY [facility] Last Admin: 03/13/20 08:58 Dose: 6 mg Documented by: Enoxaparin Sodium (Enoxaparin 30 Mg/0.3 Ml Syringe) 30 mg SC DAILY [facility] Last Admin: 03/13/20 08:58 Dose: 30 mg Documented by: Glimepiride (Glimepiride 4 Mg Tablet) 4 mg PO DAILY [facility] Last Admin: 03/13/20 08:59 Dose: 4 mg Documented by: Hydralazine HCl (Hydralazine 50 Mg Tablet) 100 mg PO DAILY [facility] Last Admin: 03/13/20 08:58 Dose: 100 mg Documented by: Remdesivir 100 mg/ Sodium (Chloride) 250 mls @ 125 mls/hr IV DAILY [facility] Stop: 03/14/20 11:59 Last Admin: 03/13/20 09:27 Dose: 125 mls/hr Documented by: Sodium Chloride () 250 mls @ 15 mls/hr IV .[id number] PRN PRN Reason: Saline Flush Sodium Chloride () 250 mls @ 15 mls/hr IV .[id number] PRN PRN Reason: Additional IVPB Infusion Delflex with 1.5% Dextrose (Delflex With 1.5% Dextrose) 5,000 mls @ 15 mls/hr IP .Q48H ONE Stop: 03/14/20 17:24 Delflex with 2.5% Dextrose (Delflex With 2.5% Dextrose) 5,000 mls @ 15 mls/hr IP .Q48H ONE Stop: 03/14/20 17:24 Lisinopril (Lisinopril 20 Mg Tablet) 20 mg PO DAILY [facility] Last Admin: 03/13/20 08:59 Dose: 20 mg Documented by: Ondansetron HCl (Ondansetron 4 Mg/2 Ml Vial) 4 mg IV Q8H PRN PRN PRN Reason: NAUSEA/VOMITING Sodium Chloride (0.9% Saline Lock 10 Ml Syringe) 10 - 40 ml IV UD PRN PRN Reason: SALINE FLUSH Last Admin: 03/13/20 09:28 Dose: 10 ml Documented by: Discharge Diet: Renal Diet Discharge Activity: Return to Normal Activity Call your doctor if you observe: Fever of 101 or Higher, Shortness of breath Home Medications: Medications to take at Discharge Allopurinol [Zyloprim] 100 mg PO DAILYCM 04/14/17 Amlodipine [Norvasc] 10 mg PO DAILY 04/14/17 Cholecalciferol (Vitamin D3) [Vitamin D3] 2,000 unit PO DAILY 04/14/17 Lisinopril [Zestril] 20 mg PO DAILY 04/14/17 Lovastatin [Mevacor] 80 mg PO DAILY 04/14/17 hydrALAZINE [Apresoline] 100 mg PO DAILY 04/14/17 aspirin 81 mg tablet,delayed release 81 mg PO DAILY 03/20/18 carvedilol 25 mg tablet 25 mg PO BID 03/20/18 Glimepiride 4 mg PO DAILY 03/29/18 Dexamethasone [Decadron] 6 mg PO DAILY #6 tab 03/13/20 Following Prescriptions Were Given to Patient: Dexamethasone [Decadron] 6 mg PO DAILY #6 tab Transmission Status: Pending to [facility] Primary Care Physician: Anupam Daily MD [Primary Care Provider] - Within 2 Weeks Disposition: Home Minutes spent on discharge:: 28 Patient Condition:: Good Medical Necessity - Tobacco Use Smoking Status: Never smoker Tobacco Use: Non-smoker Meaningful Use Info Meaningful Use Diagnoses (Choose all that apply): None applicable Inpatient E&M: 25013 Disch Hosp
--- NOTE | 2020-03-13 11:32 | CHAPLAIN ---
Type of Pastoral Visit ___ Initial Visit ___ Follow-up Visit ___ On-call Visit ___ General Patient Visit ___ Spiritual Assessment ___ Family Conference ___ Bereavement ___ Rapid Response ___ Code Blue _x__ Other (describe below) Pastoral Care Referral From ___ Patient ___ Family ___ Nurse ___ Physician ___ Blister Packaging Machine Operator ___ Floor Plan Adjuster _x__ Other (describe below) Sacrament/Intervention _x__ Active listening ___ Anointing ___ Holiness ___ Bereavement ___ Communion ___ Janeth exploration ___ ___ Life review ___ Prayer ___ Reconciliation ___ Sacrament of Sick ___ Supportive presence ___ Wedding ___ Other (describe below) Pastoral Comments phone call into isolation room; patient answered the phone and reports that he is doing better and is being discharged very soon; no other concerns but pt states he appreciates the call of concern
[2020-03-13 11:43] VITALS: BP 125/86; PULSE 72; RESP 18; TEMP 36.5; O2SAT 97
--- NOTE | 2020-03-13 12:53 | PCM.PN.REN ---
Patient Problems: Active and Suspected Problems (Last Reviewed 03/10/20 @ 13:[address] Tyrone Lee DO) COVID-19 (Acute) Subjective: going home, not requiring home oxygen. Still fatigued. Advised pt to use all 1.5% dextrose at home. Follow up in [place]. - Physical Exam Vitals/I&O's: Vital Signs Temp Pulse Resp BP Pulse Ox 97.7 F L 72 18 125/86 H 97 03/13/20 11:43 03/13/20 11:43 03/13/20 11:43 03/13/20 11:43 03/13/20 11:43 Oxygen Delivery Method Room Air Weight: 101.378 kg Body Mass Index (BMI) 31.6 Finger Stick Blood Glucose 131 Intake and Output for Last 24 Hours 03/11/20 03/12/20 03/13/20 23:59 23:59 23:59 Intake Total 790 / 790 450 / 450 Output Total 483 / 483 748 / 748 Balance 307 / 307 450 / 450 -748 / -748 General: Alert, Oriented x3, Cooperative, - - gen weakness Microbiology Past 72 Hours 03/10/20 11:28 Mucosa - Nose SARS-CoV-2 Antigen (Rapid) - Final SARS-CoV-2 (COVID 19) Laboratory Results 03/13/20 04:58: Sodium 133 L, Potassium 4.6, Chloride 97 L, Carbon Dioxide 17.0 L, Anion Gap 19 H, BUN 120 H*, Creatinine 16.30 H*, Estim Creat Clear Calc 4.73, Est GFR (MDRD) Af Amer 4 L, Est GFR (MDRD) Non-Af 3 L, BUN/Creatinine Ratio 7.4 L, Glucose 386 H, Calcium 7.9 L, Total Bilirubin 0.30, AST 15, ALT 28, Alkaline Phosphatase 50, Total Protein 6.8, Albumin 2.7 L, Globulin 4.1, Albumin/Globulin Ratio 0.7 L Medical Necessity - Tobacco Use Smoking Status: Never smoker Tobacco Use: Non-smoker Assessment/Plan All Active Problems (Last Reviewed 03/10/20 @ 13:[address] Tyrone Lee DO) Screening for intestinal cancer (Acute) COVID-19 (Acute) Problem with dialysis access (Acute) Hx of arteriovenostomy for renal dialysis (Acute) Status post insertion of dialysis catheter (Acute ~03/2018) History of colonoscopy (Acute) History of arthroscopy of knee (Acute) History of carpal tunnel release (Acute) Osteoarthritis (Acute) Gout (Acute) Diabetes (Acute) 1. ESRD on CCP[facility] use 1.5% dextrose tonight 4 exchanges every 2hrs, 2L fill volumes on discharge. 2. COVID 19 pneumonia 3. Follow up at [facility]
--- NOTE | 2020-03-14 15:31 | CASEMGMT ---
TAMEKA KABA Discharge Follow-up Phone Call: INGRID: Brandi Strata: 3 Call Date: 03/14/20 Discharge Date: 03/13/20 Time of Call:1530 Duration: 3 min Admitting Diagnosis: COVID TAMEKA KABA completed follow-up phone call after recent hospitalization. Patient states he is doing the same but having some dizziness at time. Patient had no questions or concerns regarding discharge instructions. Patient was able to fill prescriptions without any issues. Patient knows to schedule follow-up appt. Patient had no further questions or concerns at this time.
== END 2020-03-13 12:30 | disposition home or self-care (01) | DRG 177 ==
LOC: ED 12:16 → ICU 13:40 → MS2 03-11 17:49
PROVIDERS: Emergency Provider Emergency Medicine; PCP Family Medicine
DX: U07.1 COVID-19 (principal); J12.82 Pneumonia due to coronavirus disease 2019; N18.6 End stage renal disease; I12.0 Hypertensive chronic kidney disease with stage 5 chronic kidney disease or end stage renal disease; E11.22 Type 2 diabetes mellitus with diabetic chronic kidney disease; Z99.2 Dependence on renal dialysis; Z79.84 Long term (current) use of oral hypoglycemic drugs; Z79.899 Other long term (current) drug therapy
CPT/HCPCS: 36415; 71045; 80053; 81001; 83605; 84075; 84484; 85025; 85027; 85379; 85384; 86140; 87426; 90947; 93005; 99285; J7050; A4216; G0257

== ENCOUNTER 2020-07-30 05:22 | Day surgery (SDC) | payer MEDICARE, SELFPAY ==
[2020-07-10 08:06] VITALS: BMI 31.6
--- NOTE | 2020-07-30 05:39 | PCM.HP.BLA ---
History and Physical Date of Admission: 07/30/20 Intake Visit Reasons: PD CATHETER removal Chief Complaint: aching, fever, headache, dizzy, tired, and weak. Allergies No Known Allergies Allergy (Verified 07/10/20 08:05) Medications allopurinol 100 mg PO DAILYCM 04/14/17 [History Confirmed 07/10/20] amlodipine 10 mg PO DAILY 04/14/17 [History Confirmed 07/10/20] cholecalciferol (vitamin D3) 2,000 unit PO DAILY 04/14/17 [History Confirmed 07/10/20] hydralazine 100 mg PO DAILY 04/14/17 [History Confirmed 07/10/20] lisinopril 20 mg PO DAILY 04/14/17 [History Confirmed 07/10/20] lovastatin 80 mg PO DAILY 04/14/17 [History Confirmed 07/10/20] aspirin 81 mg tablet,delayed release 81 mg PO DAILY 03/20/18 [History Confirmed 07/10/20] carvedilol 25 mg tablet 25 mg PO BID 03/20/18 [History Confirmed 07/10/20] glimepiride 4 mg PO DAILY 03/29/18 [History Confirmed 07/10/20] calcium acetate(phosphat bind) 667 mg capsule 667 mg PO ONCE 07/10/20 [History Confirmed 07/10/20] PFSH Medical History Chronic renal failure, stage 4 (severe) Chronic renal failure, stage 4 (severe) Chronic renal failure, stage 5 Diabetes Gout HTN (hypertension) Osteoarthritis Problem with dialysis access Surgical History History of arthroscopy of knee History of carpal tunnel release History of colonoscopy Hx of arteriovenostomy for renal dialysis Status post insertion of dialysis catheter (~03/2018) Family History Father Diabetes Mother CVA (cerebral vascular accident) Hypertension Breast cancer Social History Smoking Status: Never smoker HPI HPI HPI: JESSI ACOSTA, is a 64 M who presents to the office today for surgical consultation removal of his peritoneal dialysis catheters. They were becoming less efficient. He has a functioning transposed left forearm cephalic vein to radial artery AV fistula. It has been utilized for the past 2 months. It is of note that March 2020 he was briefly hospitalized with COVID-19. He states he does not have any residual effect. For the last 2 months he has not had any irrigation or procedures performed through his peritoneal dialysis catheters. He denies abdominal pain. He has not had any redness or drainage from the catheters. ROS General General: No weight change, appetite, fatigue, colon cancer, breast cancer or weakness HEENT HEENT: No difficulty swallowing, eye injury, eye surgery, swollen glands or hoarseness Endo Endocrine: Yes diabetes mellitus; No thyroid disease, thyroid cancer, Hair loss, heat intolerance or cold intolerance Skin Skin: No rash or changing moles Breast Breast: No left breast lump, right breast lump, nipple discharge, breast pain, abnormal mammogram, abnormal US or breast enlargement Musc Musculoskeletal: Yes arthritis and gout; No back problems, rheumatoid arthritis or joint pain Cardio Cardiovascular: Yes high blood pressure; No murmur, pacemaker, heart disease, atrial fibrillation, heart attack, heart stent, palpitations, shortness of breat with exertion or chest pain Psych Psychiatric: No depression, anxiety or hearing voices Resp Respiratory: No shortness of breath, No sleep apnea, No cough, No COPD, No asthma, No emphysema and No wheezing Gastro Gastrointestinal: No abdominal pain, No nausea or vomiting, No diarrhea, No constipation, No blood in stool, No acid reflux, No hemorrhoids, No ulcers, No gallbladder problem and No black,tarry stools Jayce Hematologic: No blood thinners, No blood disorders, No bleeding, No anemia and No blood clots Neuro Neurologic: No system reviewed and no additional complaints, except as documented, No as per HPI, No abnormal gait, No abnormal hearing, No abnormal movements, No abnormal speech, No behavioral changes, No burning sensations, No confusion, No convulsions, No disequilibrium, No dizziness, No localized weakness, No frequent falls, No headache(s), No lack of coordination, No loss of vision, No memory loss, No numbness, No other visual disturbances, No radicular pain, No restless legs, No sensory deficit, No syncope, No tingling, No tremor(s), No weakness and No other Exam Const General: cooperative, comfortable and no acute distress Nutritional Appearance: obese HENMT Head: normal to inspection Eyes General: appearance normal, both eyes and all related structures Resp Effort & Inspection: normal respiratory effort Auscultation: clear to auscultation bilaterally Cardio Rate: regular rate Rhythm: regular rhythm GI Palpation: soft Other: Very clean site left lower quadrant of the abdomen with catheters protruding. Well-maintained. Abdomen is soft nontender Skin General: no rashes or lesions noted Neuro General: patient alert and patient awake Extrem General: no calf tenderness bilaterally Other: Transposed left forearm cephalic vein to radial artery AV fistula. Strong pulse and thrill and bruit. 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 Skin is intact. Nontender. This measures approximately 2 cm. Psych Thought Content: normal COVID (Procedure Consent) Procedure Criteria Procedure Criteria: Yes Elective The surgeon/proceduralist and patient have discussed in detail the risk of exposure to and/or potential harm posed by the COVID-19 virus with having a surgery/procedure at this time versus the risk of delaying the surgery/procedure. It is not possible to know either the risk of delaying the surgery or procedure or chance of getting an infection with perfect accuracy, but a joint decision was made between the patient and the surgeon/proceduralist to proceed at this time with the scheduled surgery/procedure as indicated on the consent form. Assessment and Plan Assessment and Plan (1) Problem with dialysis access: Status: Acute Qualifiers: Encounter type: subsequent encounter Qualified Code(s): T82.898D - Other specified complication of vascular prosthetic devices, implants and grafts, subsequent encounter Plan Details Additional Comments: Malfunctioning peritoneal dialysis catheters. The patient has converted to hemodialysis via a transposed left forearm cephalic vein to radial artery AV fistula. There is a slight aneurysm In that fistula but it is asymptomatic and not of consequence at this time. The fistula was created for him April 17, 2018 and I did perform 1 endovascular intervention August 09, 2018 where I used a 6 x 4 Powerflex angioplasty of proximal venous stenosis with resolution. I propose for the patient removal of his peritoneal dialysis catheters and I have discussed the technique, benefit, risk, alternatives. He has had an opportunity to ask and have questions answered. We will schedule and expedite his care. He is not on any anticoagulants. Copy: Dr. Daily and Dr. Bernardo Gonzalez M.D., F.A.C.S. Coding Level of Care Code Off vis,est,level 3 Diagnoses Problem with dialysis access T82.898D Encounter type: subsequent encounter Assessment & Plan Assessment/Plan (1) Problem with dialysis access: QUALIFIERS: Encounter type: subsequent encounter Qualified Code(s): T82.898D - Other specified complication of vascular prosthetic devices, implants and grafts, subsequent encounter PLAN: I anticipate removal of his malfunctioning peritoneal dialysis catheters today. He is aware of the technique, benefit, risk, alternatives and concurs. We were notified yesterday that there is some concerns regarding his left forearm arteriovenous hemodialysis fistula. By report there are diminished flows. He will be evaluated later today for this issue and we will schedule him for future left upper extremity fistulogram. Jimmy Gonzalez M.D., F.A.C.S.
--- NOTE | 2020-07-30 05:40 | EX.PCM.DISCH ---
Discharge Instructions Procedure General Surgery Diet Discharge Diet: Light diet - advance as tolerated (if you have questions about your diet instructions, please talk to you doctor.) Activity Discharge Activity: May Not Drive (for 3-5 days or while taking narcotic pain medicine.) May shower in (days): 1 Lifting Restrictions: 10 pounds Dressing / Incision Call your doctor if your incision/area has: Continuous Slow Oozing, Sudden Increased Bleeding, Increased Pain/ Swelling, Increased Redness and Foul Smelling Discharge Call your doctor if you observe: Fever of 101 or Higher Suture Line Care: Avoid Pulling/Pushing and Avoid Pinching/Bending Additional Dressing/Incision Instructions:: Change or remove dressing in 4 days. Leave steri-strips in place for 1 week. Follow Up Care Please Follow Up With: Jimmy Gonzalez MD When: Call [phone] to make an appointment to be seen in about 10 days. Test Results: Test results from this visit will be discussed in further detail at your follow-up appointment, if applicable. Discharge Plan Admission Attending Provider: Jimmy Gonzalez Primary Care Provider: Anupam Daily Discharge Orders/Prescriptions Prescriptions: No Action carvedilol 25 mg tablet 25 mg PO BID RF: 0 aspirin [Adult Aspirin Regimen] 81 mg tablet,delayed release (DR/EC) 81 mg PO DAILY RF: 0 calcium acetate(phosphat bind) 667 mg capsule 667 mg PO ONCE RF: 0 lisinopril 20 MG tablet 20 mg PO DAILY RF: 0 lovastatin 40 MG tablet 80 mg PO DAILY RF: 0 hydralazine 25 MG tablet 100 mg PO TID RF: 0 allopurinol 100 MG tablet 100 mg PO DAILYCM RF: 0 amlodipine 10 MG tablet 10 mg PO DAILY RF: 0 cholecalciferol (vitamin D3) 1,000 UNIT capsule 2,000 unit PO DAILY RF: 0 glimepiride 4 MG tablet 4 mg PO DAILY RF: 0 Other Ambulatory Orders: Basic Metabolic Profile (BMP) (Routine) Timeframe: 20200728 Facility: [facility] - Location: Laboratory Ordered By: Dr. Jimmy Gonzalez CBC-Complete Blood Cnt No Diff (Routine) Timeframe: 20200728 Facility: [facility] - Location: Laboratory Ordered By: Dr. Jimmy Gonzalez
[2020-07-30 06:05] VITALS: BP 142/84; PULSE 656; RESP 16; TEMP 36.9; O2SAT 98; BMI 32.7
[2020-07-30] MEDS: 0.9% Normal Saline 1,000 ML 100 ML IV (06:05)
[2020-07-30 06:34] LABS: Hematocrit 30.9 % (40-54); Hemoglobin 9.9 g/dL (13.0-16.5); Mean Corpuscular Hgb 29.9 pg (27.0-32.0); Mean Corpuscular Volume 93.4 fL (80-94); Mean Platelet Vol. 10.1 fl (6.2-12.0); Platelet Count 148 K/mm3 (150-450); RBC Distribution Width CV 14.5 % (11.6-14.6); RBC Distribution Width SD 49.3 fl (35.1-43.9); Red Blood Count 3.31 M/mm3 (4.6-6.2); White Blood Count 5.4 K/mm3 (4.4-11.0)
[2020-07-30 06:54] LABS: Anion Gap 8 (5-15); BUN 50 mg/dL (7-18); BUN/Creat Ratio 4.7 RATIO (10-20); Calcium,Total 9.2 mg/dL (8.5-10.1); Chloride 101 mmol/L (98-107); EST Glomerular Filtration Rate 5 mL/min (>60); Est Glom Filt Rate - Afr Amer 6 mL/min (>60); Glucose 103 mg/dL (74-106); Potassium 4.7 mmol/L (3.5-5.1); Sodium Level 139 mmol/L (136-145)
[2020-07-30] MEDS: Bupivacaine Mpf 0.5% 30 ML VIAL (07:45)
--- NOTE | 2020-07-30 07:48 | PCM.OPRPT ---
Problems Associated Problem List Diagnoses (1) Problem with dialysis access: Report of Operation Date of Procedure: 07/30/20 Pre-Operative Diagnosis: Malfunctioning peritoneal dialysis catheters Post-Operative Diagnosis: Same Surgery/Procedure Performed:: Removal peritoneal dialysis catheters Description of Surgical Findings:: Timeout informed consent was obtained. 64-year-old gentleman was taken to the operating placement table underwent general anesthesia the abdomen sterilely prepped and draped 0.5% Marcaine was used as a local anesthetic. A total of 12 cc was used. Inferior and to the left of the umbilicus at the site of the previous catheter placement a small ellipse of skin skin scar was excised and discarded. Sharp dissection carried down to the fascia. The catheter was activated and circumferential dissection was performed around the catheter allowing them for complete release of the catheter. The anterior rectus sheath was approximated with a [id number] suture of 3-0 Vicryl. The catheter with his and chased laterally and the second cuff could be identified it was dissected free the catheter was amputated. The external portion removed and the internal portion was both removed. The counterincision inferior to the left of the umbilicus was closed with running septic or 4 Monocryl. Steri-Strips Telfa OpSite dressings applied. Sponge and instrument needle counts reported certain were correct. Blood loss minimal. Specimens none. Drains none. Blood loss minimal. Jimmy Gonzalez M.D., F.A.C.S. Surgeon: Jimmy Gonzalez Type of Anesthesia: General and Local Anesthesiologist: Marshall Cruz
[2020-07-30 08:01] VITALS: BP 125/89; BP 142/84; PULSE 69; RESP 16; TEMP 36.2; O2SAT 97
[2020-07-30 08:11] LABS: Bedside Glucose 106 mg/dL (70-110)
[2020-07-30 08:14] VITALS: BP 137/92; BP 142/84; PULSE 62; RESP 16; TEMP 36.2; O2SAT 99
[2020-07-30 08:30] VITALS: BP 140/85; BP 142/84; PULSE 62; RESP 16; TEMP 36.4; O2SAT 100
[2020-07-30 09:00] VITALS: BP 123/84; BP 142/84; PULSE 70; RESP 16; TEMP 36.3; O2SAT 100
[2020-07-30 09:10] LABS: Bedside Glucose 109 mg/dL (70-110)
== END 2020-07-30 09:12 | disposition home or self-care (01) ==
LOC: SDC 05:23 → AC 05:23
PROVIDERS: PCP Family Medicine; Referring Provider Surgery; Visit Provider Surgery
PROC: (CPT 49422; principal; 2020-07-30 07:20)
DX: T82.898A Other specified complication of vascular prosthetic devices, implants and grafts, initial encounter (principal); I12.0 Hypertensive chronic kidney disease with stage 5 chronic kidney disease or end stage renal disease; E11.22 Type 2 diabetes mellitus with diabetic chronic kidney disease; N18.5 Chronic kidney disease, stage 5; E66.9 Obesity, unspecified; M19.90 Unspecified osteoarthritis, unspecified site; Z68.32 Body mass index [BMI] 32.0-32.9, adult; Z99.2 Dependence on renal dialysis; Z79.84 Long term (current) use of oral hypoglycemic drugs; Z79.899 Other long term (current) drug therapy
CPT/HCPCS: 00800; 49422; 80048; 82962; 85027; J7030

== ENCOUNTER 2020-08-19 09:52 | Day surgery (SDC) | payer MEDICARE, SELFPAY ==
[2020-07-30 09:17] VITALS: BMI 32.7
[2020-08-18 09:31] VITALS: BMI 32.7
--- NOTE | 2020-08-19 11:07 | HP.PCM_ITS ---
History and Physical Date of Admission: 08/19/20 ntake Visit Reasons: Phone call ACCESS FLOW ISSUES Chief Complaint: Update H&P Fistulagram Pot Feeder Required: No Allergies No Known Allergies Allergy (Verified 07/30/20 05:34) Medications allopurinol 100 mg PO DAILYCM 04/14/17 [History Confirmed 07/30/20] amlodipine 10 mg PO DAILY 04/14/17 [History Confirmed 07/30/20] cholecalciferol (vitamin D3) 2,000 unit PO DAILY 04/14/17 [History Confirmed 07/30/20] hydralazine 100 mg PO TID 04/14/17 [History Confirmed 07/30/20] lisinopril 20 mg PO DAILY 04/14/17 [History Confirmed 07/30/20] lovastatin 80 mg PO DAILY 04/14/17 [History Confirmed 07/30/20] aspirin 81 mg tablet,delayed release 81 mg PO DAILY 03/20/18 [History Confirmed 07/30/20] carvedilol 25 mg tablet 25 mg PO BID 03/20/18 [History Confirmed 07/30/20] glimepiride 4 mg PO DAILY 03/29/18 [History Confirmed 07/30/20] calcium acetate(phosphat bind) 667 mg capsule 667 mg PO ONCE 07/10/20 [History Confirmed 07/30/20] PFSH Medical History Chronic renal failure, stage 4 (severe) Chronic renal failure, stage 4 (severe) Chronic renal failure, stage 5 Diabetes Gout High cholesterol History of stress test HTN (hypertension) Osteoarthritis Problem with dialysis access Surgical History History of arthroscopy of knee History of carpal tunnel release History of colonoscopy Hx of arteriovenostomy for renal dialysis Hx of colonoscopy (~08/08/18) Status post insertion of dialysis catheter (~03/2018) Family History Father Diabetes Mother CVA (cerebral vascular accident) Hypertension Breast cancer Social History Smoking Status: Never smoker HPI HPI Chief Complaint: Update H&P Fistulagram Details: JESSI ACOSTA, is a 64 M who presents to the office today for decrease d dialysis access flows. Patient has a left forearm radiocephalic AV fistula. He has no issues or complaints from dialysis. He denies post-treatment bleeding. He has not had to stop dialysis early due to his fistula. He notes he was told his flows are decreasing. He denies fistula pain. He has not had any recent hospitalizations or illnesses. Dr. Gonzalez removed his peritoneal dialysis catheters on 07/30/20. Patient tolerated the procedure well. He was evaluated post-operatively and was not having any pain. Patient has had a previous fistulogram on 08/09/18 which demonstrated 70% proximal fistula venous stenosis. A 6 x 40 mm Powerflex angioplasty was performed. This was completed due to failure to mature fistula. He is currently on dialysis via fistula on , , and . ROS Const Constitutional: No fatigue, weakness or weight change ENT ENT: No difficulty swallowing Resp Respiratory: No cough, shortness of breath or wheezing Cardio Cardiology: No shortness of breath, irregular heart rhythm, palpitations or other Gastro GI: No abdominal pain, change in bowel habits, change in stool character, constipation, diarrhea, heartburn, difficulty swallowing, Blood in stool, Black,tarry stools, nausea/dyspepsia, pain with swallowing, vomiting or other Musc Musculoskeletal: Positive for Arthritis; No joint pain, back pain, myalgias, numbness, tingling or other Skin Skin: No lesions, rash or other Breast Breast: No breast pain, nipple discharge or other Neuro Neurology: No weakness, numbness or tingling Psych Psychiatric: No anxiety, No depression and No other Endo Endocrine: No fatigue or weight change Aller/Imm Allergy/Immunologic: No wheezing Jayce/Lymp Hematologic/Lymphatic: No enlarged lymph nodes Exam Const General: cooperative, healthy appearing, comfortable and no acute distress [facility] Head: normal to inspection Eyes General: appearance normal, both eyes and all related structures Neck Neck: normal visual inspection Neck mass: No Resp Effort & Inspection: normal respiratory effort Auscultation: Bilateral: Clear to Auscultation Cardio Rate: regular rate Rhythm: regular rhythm GI Inspection: normal to inspection Palpation: soft Skin Other: Left lower quadrant abdominal incision with dressing intact Neuro General: no focal motor deficits and CN's II-XI intact bilaterally Extrem Other: Left forearm AV fistula- good pulse, diminished bruit and thrill distal fistula near anastomosis. Psych Appearance: grossly normal Affect: normal affect Coding Level of Care Code Off vis,est,level 3 Diagnoses Problem with dialysis access T82.898D Encounter type: subsequent encounter Assessment and Plan Assessment and Plan (1) Problem with dialysis access: Status: Acute Qualifiers: Encounter type: subsequent encounter Qualified Code(s): T82.898D - Other specified complication of vascular prosthetic devices, implants and grafts, subsequent encounter Plan - Mariama HOWELL PAAutumnC: Dr. Gonzalez will plan to perform a left forearm fistulogram. Procedure details, risks and benefits have been explained to the patient and his . Patient and his have had the opportunity to ask and have questions answered. Patient verbally understands and agrees with the plan. Patient may continue his aspirin for the procedure. With diminished flows and a previous history of proximal fistula venous stenosis I anticipate retrograde access. The patient is aware of the technique, benefit, risk, alternatives. He has had an opportunity to ask and have questions answered. We will proceed as noted. Jimmy Gonzalez M.D., F.A.C.S.
--- NOTE | 2020-08-19 12:15 | PCM.OPRPT ---
Problems Associated Problem List Diagnoses (1) Problem with dialysis access: Report of Operation Date of Procedure: 08/19/20 Pre-Operative Diagnosis: Diminished flow left forearm cephalic vein to radial artery arteriovenous hemodialysis fistula Post-Operative Diagnosis: Same plus diffuse formed venous stenosis Surgery/Procedure Performed:: Left upper extremity fistulogram with 7 x 80 mm ever cross angioplasty and 7 x 40 mm conquest angioplasty Description of Surgical Findings:: Timeout and informed consent was obtained. 64-year-old gentleman was taken to the special procedures lab placed upon the table. 50 mcg of fentanyl 1 mg Versed were given his intravenous sedation left upper semiwas sterilely prepped draped. Ultrasound was used to gain access to the fistula in the proximal forearm. Under ultrasound guidance 2% lidocaine was instilled as a local anesthetic. Micropuncture needle inserted micropuncture wire inserted 6 Upper Sorbian short sheath dilator inserted. Using an 035 Glidewire 4 Upper Sorbian glide cath was placed in the radial artery using Isovue contrast a fistulogram was obtained this demonstrated good upper arm and central venous outflow. 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 Patient received 5000 units of heparin. A 7 x 80 mm ever cross wound was inserted and insufflated all the way up to 16 zbigniew of pressure. 2 different insufflations performed the entire fistula treated. Unfortunately there was 2 areas in the mid fistula of persistent stenosis so I then placed a 7 by 4 conquest balloon and treated those areas. A completion fistulogram was performed demonstrated improvement in all of the areas but actually kind of diffuse areas of residual mild stenosis. The fistula did however have a much improved pulse and thrill. I elected to complete the procedure at this point. Catheters and wires were removed a U suture of 409 was placed at the sheath site. The hand was viable no apparent complication blood loss was minimal. Specimens none. Drains none. Blood loss minimal. Left extremity fistulogram demonstrates a patent arterial anastomosis with a forearm cephalic vein to radial artery AV fistula with diffuse disease involving the forearm compartment the fistula. The upper arm has good cephalic and basilic vein outflow and there is good central venous outflow. 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 Future consideration might be for placement of a 8 x 150 mm drug-coated balloon. Very careful attention would need to be in placing the sheath to assure that I placed it absolutely and proximal in the forearm as possible. Jimmy Gonzalez M.D., F.A.C.S. Surgeon: Jimmy Gonzalez Type of Anesthesia: IV Sedation and Local
== END 2020-08-19 13:19 | disposition home or self-care (01) ==
LOC: CLSP 09:53
PROVIDERS: PCP Family Medicine; Referring Provider Surgery; Visit Provider Surgery
DX: T82.858A Stenosis of other vascular prosthetic devices, implants and grafts, initial encounter (principal); I12.0 Hypertensive chronic kidney disease with stage 5 chronic kidney disease or end stage renal disease; E11.22 Type 2 diabetes mellitus with diabetic chronic kidney disease; N18.5 Chronic kidney disease, stage 5; Z99.2 Dependence on renal dialysis; E78.00 Pure hypercholesterolemia, unspecified; M19.90 Unspecified osteoarthritis, unspecified site; Z79.84 Long term (current) use of oral hypoglycemic drugs; Z79.899 Other long term (current) drug therapy
CPT/HCPCS: 36902; 76937; 99152; 99153; Q9967; C1725; C1769

== ENCOUNTER 2021-05-18 10:31 | Outpatient (CLI) | payer MEDICARE, OTHER, SELFPAY ==
--- NOTE | 2021-05-18 10:36 | RAD_ITS ---
STUDY: X-RAY CHEST REASON FOR EXAM: Male, 65 years old. Nonexertional chest pain TECHNIQUE: PA and lateral views of the chest. COMPARISON: 03/10/2020 FINDINGS: There are interstitial changes of the lungs. There is no demonstrated pleural abnormality. Normal size heart. Normal mediastinum and bimal. Normal visualized pulmonary arteries. There is atherosclerotic calcification of the aortic arch with tortuosity. There are diffuse degenerative changes of the visualized thoracic spine. Normal visualized ribs, clavicles, and shoulders. There is no demonstrated abnormality of the visualized soft tissue structures of the upper abdomen. RAD/Chest PA and Lateral IMPRESSION: Chronic interstitial changes, no superimposed acute pulmonary process Electronically Signed: Chas Pastor MD at 19:20 EDT ,
[2021-05-18 12:16] LABS: Hematocrit 30.6 % (40-54); Hemoglobin 10.1 g/dL (13.0-16.5); Mean Corpuscular Hgb 31.4 pg (27.0-32.0); Mean Platelet Vol. 11.8 fl (6.2-12.0); Platelet Count 183 K/mm3 (150-450); RBC Distribution Width CV 14.3 % (11.6-14.6); RBC Distribution Width SD 49.8 fl (35.1-43.9); Red Blood Count 3.22 M/mm3 (4.6-6.2); White Blood Count 7.1 K/mm3 (4.4-11.0)
[2021-05-18 12:52] LABS: AST(SGOT) 13 U/L (15-37); Alanine Aminotransfer ALT/SGPT 25 U/L (16-61); Albumin, Serum 4.1 g/dL (3.2-5.0); Alkaline Phosphatase 67 U/L (45-117); Anion Gap 6 (5-15); BUN 64 mg/dL (7-18); BUN/Creat Ratio 4.5 RATIO (10-20); CRP 5.32 mg/L (0.0-3.0); Calcium,Total 9.3 mg/dL (8.5-10.1); Chloride 99 mmol/L (98-107); EST Glomerular Filtration Rate 4 mL/min (>60); Est Glom Filt Rate - Afr Amer 5 mL/min (>60); Globulin 4.1 g/dL (2.2-4.2); Glucose 137 mg/dL (74-106); Potassium 4.4 mmol/L (3.5-5.1); Protein, Total 8.2 g/dL (6.4-8.2); Sodium Level 136 mmol/L (136-145)
== END 2021-05-18 23:59 | disposition home or self-care (01) ==
PROVIDERS: PCP Family Medicine; Referring Provider Family Medicine; Visit Provider Family Medicine
DX: R07.9 Chest pain, unspecified (principal); R06.02 Shortness of breath
CPT/HCPCS: 36415; 71046; 80053; 85027; 86140

== ENCOUNTER → 2021-06-02 | Outpatient (CLI) | payer MEDICARE, OTHER, SELFPAY ==
--- NOTE | 2021-06-02 06:51 | CT_ITS ---
INDICATION: Interstitial lung disease EXAMINATION: CT CHEST WITHOUT CONTRAST - CT Chest W/O Contrast Injection TECHNIQUE: Helically acquired images were obtained of the chest. A radiation dose optimization technique was used for this scan. IV Contrast dosage and agent: None. COMPARISON: None. FINDINGS: LUNGS, PLEURA AND LARGE AIRWAYS: Scattered subpleural infiltrates and both upper more than lower lungs. Small, right greater than left pleural effusions with mild overlying relaxation atelectasis. No pneumothorax. THYROID: No thyroid lesions. HEART AND PERICARDIUM: Heart size is normal. No pericardial effusion. CORONARY ARTERIES: Coronary artery calcification is seen. VESSELS: Thoracic aorta is not dilated. MEDIASTINUM AND CANDIDO: No mediastinal or hilar adenopathy. Esophagus is unremarkable. No hiatal hernia. UPPER ABDOMEN: No acute abnormal finding. BONES: Mid to lower thoracic spine degenerative change. CT/Chest without Contrast IMPRESSION: Small bilateral pleural effusions with mild overlying relaxation atelectasis. Mild upper more than lower lung subpleural infiltrates, perhaps developing interstitial disease. Electronically Signed: Anupam Johnson MD at 8:53 EDT ,
== END | disposition home or self-care (01) ==
LOC: CT 06:50
PROVIDERS: PCP Family Medicine; Referring Provider Family Medicine; Visit Provider Family Medicine
DX: J84.9 Interstitial pulmonary disease, unspecified (principal)
CPT/HCPCS: 71250

== ENCOUNTER → 2021-06-25 | Outpatient (CLI) | payer MEDICARE, OTHER, SELFPAY ==
--- NOTE | 2021-06-25 14:06 | RAD_ITS ---
HISTORY: PLEURAL EFFUSION, SOB. TECHNIQUE: XR Chest 2 Views. COMPARISON: 05/18/2021. FINDINGS: CARDIOMEDIASTINAL BORDERS: Cardiac silhouette within normal limits in size. Mediastinal contour unremarkable with calcification of the aortic knob. LUNGS: Mild scarring in the lung bases without focal consolidation. PLEURA: Very mild right pleural effusion. OSSEOUS STRUCTURES: Degenerative change. RAD/Chest PA and Lateral IMPRESSION: Mild right pleural effusion. Electronically Signed: Gena Gomez MD at 14:57 EDT ,
--- NOTE | 2021-06-25 14:10 | RAD_ITS ---
HISTORY: LEFT DECUBITUS, PLEURAL EFFUSION. TECHNIQUE: XR Chest Special Views (eg Decubitus). COMPARISON: PA and lateral view same day. FINDINGS: LUNGS: Mild positional atelectasis. PLEURA: Very mild layering left pleural effusion. RAD/Special CXR (Obl/Decub/A/L) IMPRESSION: Very mild left pleural effusion. Electronically Signed: Gena Gomez MD at 15:00 EDT ,
--- NOTE | 2021-06-25 14:10 | RAD_ITS ---
HISTORY: RIGHT DECUBITUS, PLEURAL EFFUSION. TECHNIQUE: XR Chest Special Views (eg Decubitus). COMPARISON: PA and lateral view same day. FINDINGS: LUNGS/PLEURA: Very mild layering right pleural effusion with positional atelectasis of the right lung. RAD/Special CXR (Obl/Decub/A/L) IMPRESSION: Mild right pleural effusion. Electronically Signed: Gena Gomez MD at 14:59 EDT ,
[2021-06-25 15:26] LABS: Erythrocyte Sedimentation Rate 31 mm/hr (0-20)
[2021-06-25 15:27] LABS: Hematocrit 32.4 % (40-54); Hemoglobin 10.4 g/dL (13.0-16.5); Mean Corp Hgb Conc 32.1 g/dL (32-36); Mean Corpuscular Hgb 30.8 pg (27.0-32.0); Mean Corpuscular Volume 95.9 fL (80-94); Mean Platelet Vol. 11.2 fl (6.2-12.0); Platelet Count 159 K/mm3 (150-450); RBC Distribution Width CV 14.6 % (11.6-14.6); RBC Distribution Width SD 50.9 fl (35.1-43.9); Red Blood Count 3.38 M/mm3 (4.6-6.2); White Blood Count 5.9 K/mm3 (4.4-11.0)
[2021-06-25 16:12] LABS: BNP,B-Type NATRIURETIC PEPTIDE 981.1 pg/mL (0-100)
[2021-06-25 18:14] LABS: Rheumatoid Factor < 10.0 IU/mL (<15)
[2021-06-27 19:59] LABS: ANTINUCLEAR ANTIBODIES DIRECT Negative (Negative)
[2021-06-29 18:45] LABS: Angiotensin Convert Enzyme < 15 U/L (14-82)
== END | disposition home or self-care (01) ==
LOC: MTLAB 14:03
PROVIDERS: PCP Family Medicine; Referring Provider Internal Medicine Pulmonary Disease; Visit Provider Internal Medicine Pulmonary Disease
DX: R06.00 Dyspnea, unspecified (principal); J90 Pleural effusion, not elsewhere classified
CPT/HCPCS: 36415; 71046; 82164; 83880; 85027; 85652; 86038; 86431

== ENCOUNTER 2021-06-30 06:19 | Emergency (ER) | payer MEDICARE, OTHER, SELFPAY ==
[2021-06-30 06:19] VITALS: BP 157/92; PULSE 74; RESP 18; TEMP 37.2; O2SAT 97; BMI 33.5
--- NOTE | 2021-06-30 06:24 | EKG12_ITS ---
Test Reason : SOB Blood Pressure : / mmHG Vent. Rate : 069 BPM Atrial Rate : 069 BPM P-R Int : 228 ms QRS Dur : 088 ms QT Int : 406 ms P-R-T Axes : 049 -03 020 degrees QTc Int : 435 ms Sinus rhythm with 1st degree A-V block Nonspecific T wave abnormality Abnormal ECG Confirmed by JUVENCIO GIBSON, MICHAEL ([id number]), newspaper or periodical editor ALIA ADAMS ([id number]) on 07/01/2021 1:23:20 PM Referred By: Confirmed By:MICHAEL HENNING MD
[2021-06-30 06:25] VITALS: O2SAT 98
--- NOTE | 2021-06-30 06:33 | EDS_ITS ---
HPI History of Present Illness Chief Complaint: Shortness of Breath Informant: patient Onset/Context/Timing Onset: Weeks Context: gradual Timing: Continuous Current Severity: Mild Maximum Severity: Mild Worsened by: Coughing Relieved by: Nothing Associated Symptoms cough and green sputum; Negative for fever, chills or sweats Chest Pain: Positive for Pressure Narrative Narrative: 65-year-old male past medical history of chronic kidney disease for which she gets dialysis, hypertension and diabetes. He was last dialyzed yesterday and had a full run at that time. States has been short of breath for about 2 weeks. States has had a productive cough of green phlegm. Denies fever. Says he has chest pressure when he breathes. No hemoptysis. No fever. Denies any cardiac history. PE Risk Factors: Negative for Cancer, OCP + Smoking + > 35, Prior DVT or PE, Recent immobilization, Recent surgery and Recent travel Recent Illness/Hospitalization: No PFSH [facility] Medical History Chronic renal failure, stage 4 (severe) Chronic renal failure, stage 4 (severe) Chronic renal failure, stage 5 Diabetes Gout High cholesterol History of stress test HTN (hypertension) Osteoarthritis Problem with dialysis access Home Medications allopurinol 100 mg PO DAILYCM 04/14/17 [History Last Taken Unknown] amlodipine 10 mg PO DAILY 04/14/17 [History Last Taken Unknown] cholecalciferol (vitamin D3) 2,000 unit PO DAILY 04/14/17 [History Last Taken Unknown] hydralazine 100 mg PO TID 04/14/17 [History Last Taken 08/19/20] lisinopril 20 mg PO DAILY 04/14/17 [History Last Taken 08/09/18] lovastatin 80 mg PO DAILY 04/14/17 [History Last Taken Unknown] aspirin 81 mg tablet,delayed release 81 mg PO DAILY 03/20/18 [History Last Taken 08/07/18] carvedilol 25 mg tablet 25 mg PO BID 03/20/18 [History Last Taken 08/19/20] glimepiride 4 mg PO DAILY 03/29/18 [History Last Taken Unknown] calcium acetate(phosphat bind) 667 mg capsule 667 mg PO ONCE 07/10/20 [History Last Taken Unknown] Allergy/AdvReac Type Severity Reaction Status Date / Time No Known Allergies Allergy Verified 07/30/20 05:34 Family History Father Diabetes Mother CVA (cerebral vascular accident) Hypertension Breast cancer Surgical History History of arthroscopy of knee History of carpal tunnel release History of colonoscopy Hx of arteriovenostomy for renal dialysis Hx of colonoscopy (~08/08/18) Status post insertion of dialysis catheter (~03/2018) Social History Smoking Status: Never smoker ROS ROS ED ROS Narrative Shortness of breath. Review of Systems ROS Unobtainable: Denies due to encephalopathy Constitutional Constitutional ED: Denies fever(s) Eyes Eyes: Denies change in vision ENT ENT ED: Denies ear pain Cardiovascular Cardiovascular: Reports chest pain; Denies palpitations or racing heartbeat Respiratory/Chest Respiratory/Chest: Reports cough, dyspnea and sputum Gastrointestinal Gastrointestinal: Denies abdominal pain, diarrhea, melena, nausea or vomiting Genitourinary Genitourinary ED: Denies dysuria Musculoskeletal Musculoskeletal: Denies myalgias Integumentary Denies rash Neurologic Neurologic: Denies headache(s) Psychiatric Psychiatric: Denies depression Endocrine Endocrinology: Denies polyuria Hematologic/Lymphatic Hematologic/Lymphatic: Denies easy bruising Allergic/Immunologic Allergic/Immunologic ED: Denies urticaria EXAM Physical Exam Narrative Exam Narrative: 65-year-old male no acute distress. Vital signs stable afebrile. Pulse ox 97% on room air no signs hypoxia. H EENT exam unremarkable. Moist mucous members. Neck nontender no lymphadenopathy. No JVD. Lungs clear to auscultation bilaterally. Heart regular rhythm rate about 70 no murmur. Chest wall nontender. Abdomen soft nontender. Moving all 4 extremities. Calves are nontender without edema or cords. Neurologically is awake and alert without focal motor deficits. Const Vital Signs: 06/30/21 06:19 06/30/21 06:25 06/30/21 06:44 Temperature 98.9 F Temperature Source Oral Pulse Rate 74 Respiratory Rate 18 Respiratory Effort Normal Non-Labored Respiratory Depth Normal Respiratory Pattern Normal Blood Pressure 157/92 H Blood Pressure Mean 113 Pulse Ox 97 Oxygen Delivery Method Room Air Room Air Room Air Positive well nourished, well developed and obese; Negative for cachectic, contractures or unkempt General Appearance ED: well developed and NAD; Negative for unkempt, cachectic, contractures or pallor Nutritional Appearance: obese; Negative for cachectic HEENT Reports moist mucous membranes atraumatic; Negative for trauma or tenderness Eyes PERRL and EOMs intact bilaterally General Eye ED: Negative for pale conjunctiva or scleral icterus Neck no lymphadenopathy, supple, no meningeal signs and no JVD General: Negative for tenderness Resp normal respiratory effort and clear to auscultation bilaterally Auscultation: Negative for rales, rhonchi or wheezes Cardio regular rate, regular rhythm, S1 normal heart sound, S2 normal heart sound and no murmurs GI non-tender, non-distended and no masses Auscultation: normoactive bowel sounds; Negative for hyperactive bowel sounds Palpation: soft; Negative for tender, guarding or rebound tenderness present Back/Spine no CVA tenderness and normal to inspection General Back: Negative for CVA tenderness or tenderness Extremity normal to inspection General Extremety ED: Negative for edema or tenderness General Extremity: Negative for edema Neuro oriented x3 Sensorium / Orientation: alert, oriented to person, oriented to place and oriented to time; Negative for orientation impaired, confused, lethargic or stuporous Motor Exam: strength 5/5 throughout Psych mental status grossly normal Appearance: Negative for unkempt Thought Process: normal thought process Skin no wounds General Skin Exam: Negative for jaundice or pallor Lesions: no lesions Rashes: no rashes MDM MDM MDM Narrative Medical decision making narrative: 65-year-old male with 2-week history of shortness of breath. Exam is benign. Vital signs are stable and afebrile. He does not look septic or toxic. He will undergo cardiac work-up including a chest x-ray. Repeat exam patient is doing well at 7:28 AM. Unchanged. Exam benign. He and I went over his test results which were basically his baseline. Chronic anemia. Chronic kidney disease. Small right pleural effusion which has had in the past. He is comfortable being discharged home with outpatient follow-up with his primary care physician. He negative stress test about a year ago. Lab Data Attestation: I reviewed the patient's lab results. Lab results narrative: CBC shows a white count of 5. H&H of 10 and 29 which is his baseline chronic anemia. Electrolytes show an anion gap of 5 BUN of 30 and a creatinine of 7.81 consistent with his end-stage renal disease. Glucose of 142. Troponin normal at 18. Labs: Laboratory Results - last 24 hr 06/30/21 06/30/21 06:43 06:43 WBC 5.4 RBC 3.15 L Hgb 10.0 L Hct 29.1 L MCV 92.4 MCH 31.7 MCHC 34.4 D RDW Std Deviation 48.6 H RDW Coeff of Alexus 14.5 Plt Count 167 MPV 11.2 Immature Gran % (Auto) 0.000 Neut % (Auto) 64.9 Lymph % (Auto) 22.9 [place] % (Auto) 8.9 Eos % (Auto) 2.4 Baso % (Auto) 0.9 Absolute Neuts (auto) 3.5 Absolute Lymphs (auto) 1.23 Nucleated RBC % 0 Sodium 136 Potassium 3.9 Chloride 96 L Carbon Dioxide 35.0 H Anion Gap 5 BUN 30 H Creatinine 7.81 H* Estim Creat Clear Calc 9.74 Est GFR (MDRD) Af Amer 9 L Est GFR (MDRD) Non-Af 7 L BUN/Creatinine Ratio 3.8 L Glucose 142 H Calcium 8.2 L Troponin I High Sens 18 Radiography Chest X-Ray - ED: 1 View, Read by ED Physician, Read by Radiologist, Cardiomegaly, No Infiltrates, Right Infiltrate, Left Infiltrate and Right Effusion Diagnostic Testing: Clinical Impression(s) from Imaging Studies Chest X-Ray 06/30/21 06:45 IMPRESSION: Hypoventilatory changes. Minimal right pleural effusion and basilar atelectasis. Electronically Signed: Merced Hough MD at 7:08 EDT , Chest x-ray, portable, single view interpreted myself shows borderline cardiomegaly with small right pleural effusion which has been seen on prior films. Rhythm Strip Rhythm Strip: Sinus Rhythm Rate: 69 Ectopy: None EKG Initial EKG: Attestation: I personally reviewed and interpreted this EKG as follows: Interpretation: Sinus Rhythm and No Acute Injury Pattern Comments: Normal sinus rhythm rate of 69 no acute signs of MD or ischemia. First-degree AV block MD interval 228. Discharge Plan Triage Chief Complaint: Shortness of Breath ED Provider: Fletcher Bond Dx/Rx/DC Orders Clinical Impression: Acute dyspnea, Chronic renal failure, stage 4 (severe), Diabetes, HTN (hypertension) Instructions: ED Dyspnea Prescriptions: No Action carvedilol 25 mg tablet 25 mg PO BID RF: 0 aspirin [Adult Aspirin Regimen] 81 mg tablet,delayed release (DR/EC) 81 mg PO DAILY RF: 0 calcium acetate(phosphat bind) 667 mg capsule 667 mg PO ONCE RF: 0 lisinopril 20 MG tablet 20 mg PO DAILY RF: 0 lovastatin 40 MG tablet 80 mg PO DAILY RF: 0 hydralazine 25 MG tablet 100 mg PO TID RF: 0 allopurinol 100 MG tablet 100 mg PO DAILYCM RF: 0 amlodipine 10 MG tablet 10 mg PO DAILY RF: 0 cholecalciferol (vitamin D3) 1,000 UNIT capsule 2,000 unit PO DAILY RF: 0 glimepiride 4 MG tablet 4 mg PO DAILY RF: 0 Primary Care Provider: Anupam Daily Referrals: Anupam Daily MD [Primary Care Provider] - As soon as possible Activity Restrictions/Additional Instructions: Call and follow-up your primary care physician within the next week. Return to emergency department if feeling worse. Disposition Disposition: Home, Self Care
--- NOTE | 2021-06-30 06:45 | RAD_ITS ---
STUDY: X-RAY CHEST REASON FOR EXAM: Male, 65 years old. chest pain TECHNIQUE: AP portable. 6:43 AM. COMPARISON: 06/25/2021. FINDINGS: LUNGS: Low lung volumes. Minimal opacities in the lung bases. Likely minimal right pleural effusion. No consolidation. No pneumothorax. MEDIASTINUM: Aorta atherosclerotic and tortuous. CARDIAC SILHOUETTE: Not enlarged. BONES AND SOFT TISSUES: Degenerative changes in the dorsal spine. RAD/Chest 1 View (Portable) IMPRESSION: Hypoventilatory changes. Minimal right pleural effusion and basilar atelectasis. Electronically Signed: Merced Hough MD at 7:08 EDT ,
[2021-06-30 06:51] LABS: Absolute Lymphocyte Count 1.23 X10^3/uL (0.83-4.51); Absolute Neutrophil Count 3.5 X10^3/uL (2.0-7.7); Basophil# 0.05 X10^3/uL; Basophil% 0.9 % (0-1); Eosinophil# 0.13 X10^3/uL; Eosinophils% 2.4 % (0-5); Hematocrit 29.1 % (40-54); Lymphocyte # 1.23 X10^3/ul (0.83-4.51); Lymphocyte % 22.9 % (19-41); Mean Corp Hgb Conc 34.4 g/dL (32-36); Mean Corpuscular Hgb 31.7 pg (27.0-32.0); Mean Corpuscular Volume 92.4 fL (80-94); Mean Platelet Vol. 11.2 fl (6.2-12.0); Monocyte# 0.48 X10^3/uL; Monocyte% 8.9 % (0-10); NRBC Flagged by Analyzer 0 % (0-5); Neutrophil # 3.48 X10^3/uL (2.7-7.7); Neutrophil % 64.9 % (47-70); Platelet Count 167 K/mm3 (150-450); RBC Distribution Width CV 14.5 % (11.6-14.6); RBC Distribution Width SD 48.6 fl (35.1-43.9); Red Blood Count 3.15 M/mm3 (4.6-6.2); White Blood Count 5.4 K/mm3 (4.4-11.0)
[2021-06-30 07:17] LABS: Anion Gap 5 (5-15); BUN 30 mg/dL (7-18); BUN/Creat Ratio 3.8 RATIO (10-20); Calcium,Total 8.2 mg/dL (8.5-10.1); Chloride 96 mmol/L (98-107); Creatinine, Serum 7.81 mg/dL (0.70-1.30); EST Glomerular Filtration Rate 7 mL/min (>60); Est Glom Filt Rate - Afr Amer 9 mL/min (>60); Estimated Creatinine Clearance 9.74 ml/min; Glucose 142 mg/dL (74-106); Potassium 3.9 mmol/L (3.5-5.1); Sodium Level 136 mmol/L (136-145); Troponin-I HS 18 pg/mL (3.0-78.0)
[2021-06-30 07:39] VITALS: BP 157/92; PULSE 71; RESP 18; O2SAT 94
== END 2021-06-30 07:41 | disposition home or self-care (01) ==
PROVIDERS: Emergency Provider Emergency Medicine; PCP Family Medicine; Visit Provider Emergency Medicine
DX: I12.9 Hypertensive chronic kidney disease with stage 1 through stage 4 chronic kidney disease, or unspecified chronic kidney disease (principal); Z99.2 Dependence on renal dialysis; E11.22 Type 2 diabetes mellitus with diabetic chronic kidney disease; N18.4 Chronic kidney disease, stage 4 (severe); M10.9 Gout, unspecified; E78.00 Pure hypercholesterolemia, unspecified; M19.90 Unspecified osteoarthritis, unspecified site; Z79.82 Long term (current) use of aspirin; Z79.84 Long term (current) use of oral hypoglycemic drugs; Z79.899 Other long term (current) drug therapy; E66.9 Obesity, unspecified; D63.1 Anemia in chronic kidney disease; I44.0 Atrioventricular block, first degree; Z68.33 Body mass index [BMI] 33.0-33.9, adult
CPT/HCPCS: 71045; 80048; 84484; 85025; 93005; 99283; A4216

== ENCOUNTER 2021-07-17 20:21 | Emergency (ER) | payer MEDICARE, OTHER, SELFPAY ==
[2021-07-17 20:27] VITALS: BP 188/94; PULSE 83; RESP 24; TEMP 36.7; O2SAT 92; BMI 33.7
--- NOTE | 2021-07-17 20:36 | EKG12_ITS ---
Test Reason : CP Blood Pressure : / mmHG Vent. Rate : 085 BPM Atrial Rate : 085 BPM P-R Int : 174 ms QRS Dur : 084 ms QT Int : 426 ms P-R-T Axes : 035 -07 034 degrees QTc Int : 506 ms Normal sinus rhythm Nonspecific ST and T wave abnormality Prolonged QT Abnormal ECG When compared with ECG of 30-JUN-2021 06:35, ME interval has decreased QT has lengthened Confirmed by JUVENCIO GIBSON, MICHAEL ([id number]), editorial writer ALIA ADAMS ([id number]) on 07/20/2021 1:11:01 PM Referred By: ETHAN Confirmed By:MICHAEL HENNING MD
--- NOTE | 2021-07-17 20:36 | RAD_ITS ---
INDICATION: chest pain EXAMINATION/TECHNIQUE: X-RAY - XR Chest 1 View COMPARISON: 09/30/2021 chest x-ray FINDINGS: LINES/DEVICES: None. LUNGS: Symmetric, normal lung volumes. Mild prominence of the interstitial lung markings may represent interstitial edema, less likely interstitial lung disease or possible infectious etiology. No appreciable pleural effusion. No nodule, focal consolidation or pneumothorax. MEDIASTINUM AND CARDIOVASCULAR STRUCTURES: Normal size and contour of the cardiomediastinal silhouette. No evidence of pulmonary vascular congestion. Moderate aortic arch atherosclerosis. BONES AND SOFT TISSUES: No fracture or focal osseous lesion. RAD/Chest 1 View (Portable) IMPRESSION: 1. Subtle increased interstitial lung markings, nonspecific finding suspicious for interstitial edema, possible infection or interstitial lung disease. Correlate for decreased heart function. Electronically Signed: Cristobal Donis DO at 22:07 EDT ,
--- NOTE | 2021-07-17 20:38 | ED.VIS.CHEST ---
HPI History of Present Illness Chief Complaint: Chest Pain Informant: patient Onset/Context/Timing Onset: Today Activity at onset: gradual Timing: Continuous Quality: Positive for Sharp Location: Substernal Worsened By: Nothing Relieved By: Oxygen Associated Symptoms: Positive for Dyspnea and Lightheadedness; Negative for Nausea, Vomiting, Diaphoresis, Cough, Fever, Acid Reflux and Palpitations Narrative Narrative: Patient presents with chest pain that began today. Patient states he was at dialysis when his pain began. Patient describes his pain as sharp. Patient states pain is over the substernal area. Patient states nothing makes it worse. Patient states he got better when EMS applied oxygen. Patient admits to some shortness of breath with the pain. Patient also admits to some lightheadedness. Patient denies any nausea or vomiting. Patient denies any diaphoresis. Patient denies any cough or fever. CVD Risk Factors: Positive for Hypertension, Diabetes and Family History 1' </=55; Negative for Hypercholesterolemia and Smoking PE Risk Factors: Negative for Recent Travel/Surgery, Recent Immobilization, Prior DVT or PE and Cancer [facility] Medical History Chronic renal failure, stage 4 (severe) Chronic renal failure, stage 4 (severe) Chronic renal failure, stage 5 Diabetes Gout High cholesterol History of stress test HTN (hypertension) Osteoarthritis Problem with dialysis access Home Medications allopurinol 100 mg PO DAILYCM 04/14/17 [History Last Taken Unknown] amlodipine 10 mg PO DAILY 04/14/17 [History Last Taken Unknown] cholecalciferol (vitamin D3) 125 mcg PO DAILY 04/14/17 [History Last Taken Unknown] hydralazine 100 mg PO TID 04/14/17 [History Last Taken 08/19/20] lisinopril 40 mg PO BID 04/14/17 [History Last Taken 08/09/18] lovastatin 40 mg PO DAILY 04/14/17 [History Last Taken Unknown] aspirin 81 mg tablet,delayed release 81 mg PO DAILY 03/20/18 [History Last Taken 08/07/18] carvedilol 25 mg tablet 25 mg PO BID 03/20/18 [History Last Taken 08/19/20] glimepiride 4 mg PO DAILY 03/29/18 [History Last Taken Unknown] B complex-vitamin C-folic acid [Glo-Brii] 0.8 tab PO DAILY 07/17/21 [History Last Taken Unknown] clonidine HCl 0.1 mg PO QHS 07/17/21 [History Last Taken Unknown] colchicine 0.6 mg PO DAILY 07/17/21 [History Last Taken Unknown] latanoprost 1 drp OPHTHALMIC (EYE) DAILY 07/17/21 [History Last Taken Unknown] sucroferric oxyhydroxide [Velphoro] 1,500 mg PO BID 07/17/21 [History Last Taken Unknown] sucroferric oxyhydroxide [Velphoro] 100 mg PO BREAKFAST 07/17/21 [History Last Taken Unknown] Allergy/AdvReac Type Severity Reaction Status Date / Time No Known Allergies Allergy Verified 07/17/21 20:27 Family History Father Diabetes Mother CVA (cerebral vascular accident) Hypertension Breast cancer Surgical History History of arthroscopy of knee History of carpal tunnel release History of colonoscopy Hx of arteriovenostomy for renal dialysis Hx of colonoscopy (~08/08/18) Status post insertion of dialysis catheter (~03/2018) Social History Smoking Status: Never smoker ROS ROS ED Constitutional Constitutional ED: Denies chills or fever(s) Eyes Eyes: Reports blurry vision; Denies diplopia ENT ENT ED: Denies rhinorrhea or sore throat Cardiovascular Cardiovascular: Reports chest pain; Denies palpitations Respiratory/Chest Respiratory/Chest: Reports dyspnea; Denies cough Gastrointestinal Gastrointestinal: Denies abdominal pain, nausea or vomiting Genitourinary Genitourinary ED: Denies dysuria or hematuria Musculoskeletal Musculoskeletal: Reports back pain; Denies neck pain Integumentary Denies abscess or rash Neurologic Neurologic: Denies headache(s) or weakness Allergic/Immunologic Allergic/Immunologic ED: Denies mouth swelling or urticaria EXAM Physical Exam Const Vital Signs: 07/17/21 20:27 07/17/21 20:44 07/17/21 21:22 Temperature 98.1 F Temperature Source Temporal Pulse Rate 83 78 Respiratory Rate 24 H 16 Blood Pressure 188/94 H 188/94 H Blood Pressure Mean 125 125 Pulse Ox 92 98 100 Oxygen Delivery Method Room Air Room Air Room Air 07/17/21 22:00 Temperature Temperature Source Pulse Rate 76 Respiratory Rate 14 Blood Pressure 195/100 H Blood Pressure Mean 131 Pulse Ox 98 Oxygen Delivery Method Room Air Positive well nourished, well developed and obese General Appearance ED: well developed and NAD Nutritional Appearance: obese HEENT normocephalic and atraumatic Eyes PERRL and EOMs intact bilaterally Neck supple and no JVD Chest Wall palpation of chest normal Resp normal respiratory effort and clear to auscultation bilaterally Effort and Inspection: Negative for respiratory distress Cardio regular rate, regular rhythm and no murmurs GI normal to inspection, nondistended, normoactive bowel sounds, soft to palpation, non-tender and non-distended Extremity normal to inspection General Extremety ED: Negative for edema or tenderness General Extremity: Negative for edema Neuro oriented x3, CN's II-XII intact bilaterally and no sensory deficits noted Sensorium / Orientation: awake and alert Motor Exam: strength 5/5 throughout Psych mental status grossly normal Heart Score History: Slightly/Non-Suspicious ECG: Nonspecific Repolarization Age: >/= 65 years Risk Factors: 1 or 2 Risk Factors Score: 4 MDM MDM MDM Narrative Medical decision making narrative: EKG was obtained. On my interpretation it shows normal sinus rhythm with a rate of 85. VT interval and QRS interval were within normal limits. QTc interval was slightly prolonged at 506 ms. [place] was normal. There are nonspecific ST-T wave changes. Other than the increase in QTc interval, this was unchanged compared to previous EKG. CBC shows a mild anemia with a hemoglobin of 10.7 and hematocrit 32.2. Basic metabolic profile shows a creatinine of 4.52. This was improved from previous results. High-sensitivity troponin was normal at 24. Portable chest x-ray was obtained. There is 1 view. There are nonspecific interstitial lung markings noted. There is no acute process noted. Bony thorax is normal. There is no cardiomegaly. Radiologist also interpreted the x-ray and agrees. 2-hour repeat high-sensitivity troponin was obtained and is pending. Care of the patient was turned over to the oncoming physician. If the 2-hour troponin is normal, patient will be able to be discharged home. Lab Data Attestation: I reviewed the patient's lab results. Labs: Laboratory Results - last 24 hr 07/17/21 07/17/21 20:42 20:42 WBC 6.2 RBC 3.47 L Hgb 10.7 L Hct 32.2 L MCV 92.8 MCH 30.8 MCHC 33.2 RDW Std Deviation 50.8 H RDW Coeff of Alexus 15.4 H Plt Count 186 MPV 11.0 Immature Gran % (Auto) 0.300 Neut % (Auto) 66.3 Lymph % (Auto) 22.0 [place] % (Auto) 7.2 Eos % (Auto) 3.1 Baso % (Auto) 1.1 H Absolute Neuts (auto) 4.1 Absolute Lymphs (auto) 1.35 Nucleated RBC % 0 Sodium 140 Potassium 3.4 L Chloride 98 Carbon Dioxide 36.0 H Anion Gap 6 BUN 13 Creatinine 4.52 H Estim Creat Clear Calc 16.82 Est GFR (MDRD) Af Amer 17 L Est GFR (MDRD) Non-Af 14 L BUN/Creatinine Ratio 2.9 L Glucose 59 L Calcium 8.3 L Troponin I High Sens 24 Radiography Diagnostic Testing: Clinical Impression(s) from Imaging Studies Chest X-Ray 07/17/21 20:36 IMPRESSION: 1. Subtle increased interstitial lung markings, nonspecific finding suspicious for interstitial edema, possible infection or interstitial lung disease. Correlate for decreased heart function. Electronically Signed: Cristobal Donis DO at 22:07 EDT , EKG Initial EKG: Attestation: I personally reviewed and interpreted this EKG as follows: Interpretation: Sinus Rhythm (85) and Non-Specific ST Changes Prior EKG tracings: available for review Prior: Unchanged (06/30/2021) Discharge Plan Triage Chief Complaint: Chest Pain ED Provider: Tyrone Bird Dx/Rx/DC Orders Clinical Impression: Chest pain, Chronic renal failure, stage 4 (severe) Instructions: ED Chest Pain, Uncertain Cause Prescriptions: No Action carvedilol 25 mg tablet 25 mg PO BID RF: 0 aspirin [Adult Aspirin Regimen] 81 mg tablet,delayed release (DR/EC) 81 mg PO DAILY RF: 0 lisinopril 20 MG tablet 40 mg PO BID RF: 0 lovastatin 40 MG tablet 40 mg PO DAILY RF: 0 hydralazine 25 MG tablet 100 mg PO TID RF: 0 allopurinol 100 MG tablet 100 mg PO DAILYCM RF: 0 amlodipine 10 MG tablet 10 mg PO DAILY RF: 0 cholecalciferol (vitamin D3) 1,000 UNIT capsule 125 mcg PO DAILY RF: 0 glimepiride 4 MG tablet 4 mg PO DAILY RF: 0 latanoprost 0.005 % drops 1 drp ophthalmic (eye) DAILY RF: 0 clonidine HCl 0.1 mg tablet 0.1 mg PO QHS RF: 0 Glo-Brii 0.8 mg tablet 0.8 tab PO DAILY RF: 0 colchicine 0.6 mg tablet 0.6 mg PO DAILY RF: 0 Velphoro 500 mg tablet,chewable 1,500 mg PO BID RF: 0 Velphoro 500 mg tablet,chewable 100 mg PO BREAKFAST RF: 0 Primary Care Provider: Anupam Daily Referrals: Anupam Daily MD [Primary Care Provider] - 5-7 Days
[2021-07-17 20:44] VITALS: O2SAT 98
[2021-07-17] MEDS: Aspirin 81 MG TAB.CHEW 324 MG PO (20:53)
[2021-07-17 20:54] LABS: Absolute Lymphocyte Count 1.35 X10^3/uL (0.83-4.51); Absolute Neutrophil Count 4.1 X10^3/uL (2.0-7.7); Basophil# 0.07 X10^3/uL; Basophil% 1.1 % (0-1); Eosinophil# 0.19 X10^3/uL; Eosinophils% 3.1 % (0-5); Hematocrit 32.2 % (40-54); Hemoglobin 10.7 g/dL (13.0-16.5); Lymphocyte # 1.35 X10^3/ul (0.83-4.51); Mean Corp Hgb Conc 33.2 g/dL (32-36); Mean Corpuscular Hgb 30.8 pg (27.0-32.0); Mean Corpuscular Volume 92.8 fL (80-94); Monocyte# 0.44 X10^3/uL; Monocyte% 7.2 % (0-10); NRBC Flagged by Analyzer 0 % (0-5); Neutrophil # 4.08 X10^3/uL (2.7-7.7); Neutrophil % 66.3 % (47-70); Platelet Count 186 K/mm3 (150-450); RBC Distribution Width CV 15.4 % (11.6-14.6); RBC Distribution Width SD 50.8 fl (35.1-43.9); Red Blood Count 3.47 M/mm3 (4.6-6.2); White Blood Count 6.2 K/mm3 (4.4-11.0)
[2021-07-17 21:15] LABS: Anion Gap 6 (5-15); BUN 13 mg/dL (7-18); BUN/Creat Ratio 2.9 RATIO (10-20); Calcium,Total 8.3 mg/dL (8.5-10.1); Chloride 98 mmol/L (98-107); Creatinine, Serum 4.52 mg/dL (0.70-1.30); EST Glomerular Filtration Rate 14 mL/min (>60); Est Glom Filt Rate - Afr Amer 17 mL/min (>60); Estimated Creatinine Clearance 16.82 ml/min; Glucose 59 mg/dL (74-106); Potassium 3.4 mmol/L (3.5-5.1); Sodium Level 140 mmol/L (136-145); Troponin-I HS (w/2H Reflex) 24 pg/mL (3.0-78.0)
[2021-07-17 21:22] VITALS: BP 188/94; PULSE 78; RESP 16; O2SAT 100
[2021-07-17 22:00] VITALS: BP 195/100; PULSE 76; RESP 14; O2SAT 98
[2021-07-17 22:46] LABS: Reflex Troponin-HS? (from REC) Y
[2021-07-17 23:21] LABS: Troponin-I HS 32 pg/mL (3.0-78.0)
[2021-07-17 23:43] VITALS: BP 185/101; PULSE 81; RESP 14; O2SAT 98
== END 2021-07-17 23:43 | disposition home or self-care (01) ==
PROVIDERS: Emergency Provider Emergency Medicine; PCP Family Medicine; Visit Provider Emergency Medicine
DX: R07.9 Chest pain, unspecified (principal); Z99.2 Dependence on renal dialysis; E11.22 Type 2 diabetes mellitus with diabetic chronic kidney disease; N18.4 Chronic kidney disease, stage 4 (severe); E78.00 Pure hypercholesterolemia, unspecified; D64.9 Anemia, unspecified; I12.9 Hypertensive chronic kidney disease with stage 1 through stage 4 chronic kidney disease, or unspecified chronic kidney disease; M10.9 Gout, unspecified; M19.90 Unspecified osteoarthritis, unspecified site; R42 Dizziness and giddiness; R06.02 Shortness of breath; Z79.84 Long term (current) use of oral hypoglycemic drugs; Z79.899 Other long term (current) drug therapy; Z79.82 Long term (current) use of aspirin; E66.9 Obesity, unspecified; Z68.33 Body mass index [BMI] 33.0-33.9, adult
CPT/HCPCS: 71045; 80048; 84484; 85025; 93005; 99285; A4216

== ENCOUNTER → 2021-07-30 | Outpatient (CLI) | payer MEDICARE, OTHER, SELFPAY ==
--- NOTE | 2021-07-30 12:52 | ECHOD_ITS ---
Reason For Study: SOB Procedure This was a 2D Doppler, Color Flow transthoracic echocardiogram. The exam was of adequate technical quality. Exam performed in department. Left Ventricle Normal LV size. Apical false tendon noted. Left ventricular systolic function is lower limits of normal. The estimated ejection fraction is 50 %. The global longitudinal strain = -14% (abnormal). No regional wall motion abnormalities noted. Right Ventricle Normal RV size. Normal systolic function. Atria Normal left atrium. Normal right atrium. No doppler evidence for ASD. Mitral Valve There is no mitral annular calcification. Normal mitral valve. Mild-Moderate (1-2+) mitral valve insufficiency. Tricuspid Valve Normal tricuspid valve. Mild tricuspid valve insufficiency. Right ventricular systolic pressure estimated to be 43 mmHg. Aortic Valve Trisinus/trileaflet aortic valve. Mild focal aortic valve calcification. Trivial aortic valve insufficiency. Pulmonic Valve The pulmonic valve is not well visualized. Trivial pulmonic valve insufficiency. Great Vessels Normal sized aortic root. Pericardium/Pleural Trivial pericardial effusion. There are no echocardiographic indications of cardiac tamponade. MMode/2D Measurements & Calculations LVIDd: 5.7 cm IVSd: 1.3 cm Ao root diam: 3.3 cm LVIDs: 4.6 cm LVPWd: 1.3 cm RVDd: 3.6 cm FS: 20.7 % LAV(MOD-bp): 63.0 ml LVAd ap4: 40.6 cm2 SV(MOD-sp4): 64.5 ml LAV(MOD-bp) Indexed: 29.0 ml/m2 LVLd ap4: 9.6 cm LAV(MOD-sp2): 54.0 ml EDV(MOD-sp4): 142.0 ml LAV(MOD-sp4): 61.7 ml EDV(sp4-el): 144.9 ml LVAs ap4: 28.0 cm2 LVLs ap4: 8.6 cm ESV(MOD-sp4): 77.4 ml ESV(sp4-el): 77.0 ml EF(MOD-sp4): 45.5 % EF(sp4-el): 46.8 % SV(sp4-el): 67.8 ml LA A4 area: 21.1 cm2 LA dimension(2D): 4.3 cm RA A4 area: 12.6 cm2 Doppler Measurements & Calculations MV E max raza: 111.2 cm/sec Lat Peak E' Raza: 6.7 cm/sec Med Peak E' Raza: 7.0 cm/sec MV A max raza: 51.1 cm/sec E/E' lat: 16.7 E/E' med: 15.9 MV E/A: 2.2 Ao V2 max: 150.0 cm/sec AI max raza: 447.5 cm/sec LV V1 max: 126.5 cm/sec Ao max P.0 mmHg AI max P.1 mmHg LV V1 max P.4 mmHg AI dec slope: 244.4 cm/sec2 AI P1/2t: 536.3 msec PA V2 max: 105.5 cm/sec TR max raza: 315.2 cm/sec TR max P.8 mmHg ECHO/Echo Complete Interpretation Summary Left ventricular systolic function is lower limits of normal. The estimated ejection fraction is 50 %. The global longitudinal strain = -14% (abnormal). Apical false tendon noted. Mild-Moderate (1-2+) mitral valve insufficiency. Mild tricuspid valve insufficiency. Mild focal aortic valve calcification. Trivial aortic valve insufficiency. Trivial pulmonic valve insufficiency. Trivial pericardial effusion. There are no echocardiographic indications of cardiac tamponade. Right ventricular systolic pressure estimated to be 43 mmHg c/w pulmonary hyper tension. Transmitral diastolic flow velocities suggest diastolic dysfunction (pseudonorm al pattern). Ordering Physician: Anupam Daily Referring Physician: Anupam Daily Performed By: Rosalie Vines RDCS
== END | disposition home or self-care (01) ==
LOC: CVS 12:51
PROVIDERS: PCP Family Medicine; Referring Provider Family Medicine; Visit Provider Family Medicine
DX: R06.02 Shortness of breath (principal)
CPT/HCPCS: 93306

== ENCOUNTER → 2022-04-28 | Outpatient (CLI) | payer MEDICARE, OTHER, SELFPAY ==
--- NOTE | 2022-04-28 15:02 | CDU_ITS ---
Reason For Study: LT Retinal Ischemia Rt. Velocities/BP Lt. Velocities/BP Prox CCA 62.9/14.7 cm/sec. Prox CCA 74.3/12.8 cm/sec. Mid CCA 68.6/18.5 cm/sec. Mid CCA 71.4/15.7 cm/sec. Dist CCA 34.6/11.9 cm/sec. Dist CCA 43.8/13.2 cm/sec. Prox ICA 34.0/15.5 cm/sec. Prox ICA 39.1/13.4 cm/sec. Mid ICA 47.5/17.3 cm/sec. Mid ICA 34.6/12.9 cm/sec. Dist ICA 83.4/31.5 cm/sec. Dist ICA 47.4/19.6 cm/sec. Rt. ICA/CCA = 1.2. Lt. ICA/CCA = 0.7. Prox ECA 70.0/12.3 cm/sec. Prox ECA 45.9/10.1 cm/sec. Rt. Vert. 95.2/36.9 cm/sec. Lt. Vert. 20.0/3.7 cm/sec. Right Extracranial There is homogeneous, smooth atherosclerotic plaque noted in the right common carotid artery. There is heterogeneous, irregular atherosclerotic plaque noted in the right internal carotid artery. There is intimal thickening but no significant atherosclerotic plaque noted in the right external carotid artery. Antegrade flow is noted in the right vertebral artery. Left Extracranial There is homogeneous, smooth atherosclerotic plaque noted in the left common carotid artery. There is heterogeneous, irregular atherosclerotic plaque noted in the left internal carotid artery. There is intimal thickening but no significant atherosclerotic plaque noted in the left external carotid artery. Antegrade flow is noted in the left vertebral artery. Procedure Carotid Duplex 91162. This is a Carotid Duplex examination using B-mode, color flow and specral Doppler. The exam was diagnostic. The study was technically difficult. Exam performed in department. VL/Carotid Duplex Ultrasound Interpretation Summary Minimal irregular plaque at the proximal right internal carotid artery with les s than 50% stenosis Less than 50% stenosis right external carotid artery Minimal irregular plaque at the proximal left internal carotid artery with less than 50% stenosis Less than 50% stenosis left external carotid artery Patent antegrade vertebral arteries bilaterally Ordering Physician: Anupam Daily Referring Physician: Mateo Mccurdy Performed By: Marshall Batista RVT
== END | disposition home or self-care (01) ==
LOC: CVS 15:00
PROVIDERS: PCP Family Medicine; Referring Provider Ophthalmology; Visit Provider Ophthalmology
DX: H35.82 Retinal ischemia (principal)
CPT/HCPCS: 93880

== ENCOUNTER 2023-04-01 06:23 | Emergency (ER) | payer MEDICARE, OTHER, SELFPAY ==
[2023-04-01 06:23] VITALS: BP 187/106; PULSE 56; RESP 18; TEMP 35.6; O2SAT 95; BMI 35.0
--- NOTE | 2023-04-01 06:35 | ED.VIS.LOWEX ---
HPI History of Present Illness Chief Complaint: Lower Extremity Injury Informant: patient Onset/Context/Timing Onset: Weeks (1) Context: Gradual Onset Timing: Continuous Quality of Pain: Aching Location: L knee Current Severity: Moderate Maximum Severity: Severe Worsened by: WBing, bending Relieved by: rest Associated Symptoms Associated Symptoms: Negative for Parasthesia, Weakness or Loss of Funtion Narrative Narrative: Pain progressively worsening in L knee for past week or so. Denies known injury, does not recall any repetitive movements/walking/bending that he can think of that could have caused this. Has had some pains in knee before, but no definitive diagnoses. Denies fevers/chills or any other systemic symptoms or other joint involvement. [facility] Medical History Chronic renal failure, stage 4 (severe) Chronic renal failure, stage 4 (severe) Chronic renal failure, stage 5 Diabetes Gout High cholesterol History of stress test HTN (hypertension) Osteoarthritis Problem with dialysis access Home Medications amlodipine 10 mg tablet 10 mg PO DAILY 04/14/17 [History Last Taken Unknown] hydralazine 25 mg tablet 100 mg PO TID 04/14/17 [History Last Taken 08/19/20] lovastatin 40 mg tablet 40 mg PO DAILY 04/14/17 [History Last Taken Unknown] aspirin 81 mg tablet,delayed release (Adult Aspirin Regimen) 81 mg PO DAILY 03/20/18 [History Last Taken 08/07/18] carvedilol 25 mg tablet 25 mg PO BID 03/20/18 [History Last Taken 08/19/20] mycophenolate mofetil 250 mg capsule 500 mg PO Q12H 04/01/23 [History Last Taken Unknown] oxycodone-acetaminophen 5 mg-325 mg tablet 1 tab PO Q6H PRN PRN Pain 3 days #10 TABLETS 04/01/23 [Rx Last Taken Unknown] prednisone 10 mg tablet 10 mg PO UD #30 tabs 04/01/23 [Rx Last Taken Unknown] prednisone 5 mg tablet 5 mg PO DAILY 04/01/23 [History Last Taken Unknown] sulfamethoxazole 400 mg-trimethoprim 80 mg tablet 1 tab PO DAILY 04/01/23 [History Last Taken Unknown] tacrolimus 1 mg capsule, immediate-release (Prograf) 4 mg PO Q12H 02/23/24 [History Last Taken Unknown] Allergy/AdvReac Type Severity Reaction Status Date / Time No Known Allergies Allergy Verified 04/01/23 06:26 Family History Father Diabetes Mother CVA (cerebral vascular accident) Hypertension Breast cancer Surgical History History of arthroscopy of knee History of carpal tunnel release History of colonoscopy Hx of arteriovenostomy for renal dialysis Hx of colonoscopy (~08/08/18) Status post insertion of dialysis catheter (~03/2018) Social History Smoking Status: Never smoker ROS ROS ED Constitutional Constitutional ED: Denies chills or fever(s) Musculoskeletal Musculoskeletal: Reports extremity pain; Denies neck pain Integumentary Denies Abrasions, rash or wounds Neurologic Neurologic: Denies paresthesias or weakness EXAM Physical Exam Const Vital Signs: 04/01/23 06:23 Temperature 96.0 F L Temperature Source Temporal Pulse Rate 56 L Respiratory Rate 18 Blood Pressure 187/106 H Blood Pressure Mean 133 Pulse Ox 95 Oxygen Delivery Method Room Air Positive well nourished and well developed General Appearance ED: well developed and NAD Neck full ROM and supple Back/Spine normal ROM and normal to inspection Extremity normal to inspection and full ROM Extremity Narrative: Full range of motion of left knee with exception of extreme flexion, limited due to pain there. There is no effusion. There is no excessive warmth. There is no erythema or rash overlying this area. There is no peripheral/distal edema or calf tenderness or cords. Intact dorsalis pedis pulses. Able to extend fully, all ligaments stable with short endpoints and no significant pain with stressing any of the 4 ligaments of the knee. Neuro oriented x3, no focal motor deficits and no sensory deficits noted Sensorium / Orientation: alert Psych mental status grossly normal and thought process normal Skin no wounds Rashes: no rashes MDM MDM MDM Narrative Medical decision making narrative: 4 view x-ray series of the left knee were obtained and on my interpretation there is no acute abnormality. I reviewed the radiologist interpretation, he states there is a small effusion present. Clinically there is no significant effusion, and as I discussed with the patient, we did discuss the possibility of an arthrocentesis to help diagnose his knee problem, but I do not think I will be able to get much fluid out since basically I can feel none clinically. When we discussed his history of gout which I saw in the EMR, he confirms that his gout in the past was in his foot. He states there is some resemblance of that pain here in his knee although he has never had gout that he knows of in his knee before. Based on my exam I have a very low suspicion of a septic arthritis here. He can move the knee very well without assistance, and it is not red or hot. However he does state now that having the sheet or blanket on it does hurt him more than without. Gout is in the differential, as is osteoarthritis which the radiologist suggests. Looking at his medication list he is on prednisone 5 mg daily. I think it would be reasonable to bump him up to 40 mg daily and then tapering back down and see if that helps him which I suspected will. If it makes him worse, he is advised to discontinue that and return to the ER right away he is comfortable with that plan. I offered him crutches he declines and will do an Dontae wrap instead. Radiography Diagnostic Testing: Clinical Impression(s) from Imaging Studies Knee X-Ray 04/01/23 06:45 IMPRESSION: Degenerative osteoarthritis with small associated knee effusion. No acute fracture or dislocation. Electronically Signed: Jaquan Montanez MD at 7:44 EST , Discharge Plan Triage Chief Complaint: Lower Extremity Injury ED Provider: Curtis Arcos Dx/Rx/DC Orders Clinical Impression: Acute pain of left knee Instructions: ED Knee Pain of Uncertain Cause Prescriptions: New prednisone 10 mg tablet 10 mg PO UD Qty: 30 0RF Rx Instructions: Take 4 tablets daily for 3 days, then 3 daily for 3 days, then 2 daily for 3 days, then 1 a day for 3 days oxycodone-acetaminophen [oxycodone-acetaminophen] 5-325 mg tablet 1 tab PO Q6H PRN PRN (Reason: Pain) 3 Days Qty: 10 0RF Continued carvedilol 25 mg tablet 25 mg PO BID aspirin [Adult Aspirin Regimen] 81 mg tablet,delayed release (DR/EC) 81 mg PO DAILY lovastatin 40 MG tablet 40 mg PO DAILY hydralazine 25 MG tablet 100 mg PO TID amlodipine 10 MG tablet 10 mg PO DAILY sulfamethoxazole-trimethoprim 400-80 mg tablet 1 tab PO DAILY tacrolimus [Prograf] 1 mg capsule 4 mg PO Q12H mycophenolate mofetil 250 mg capsule 500 mg PO Q12H Patient Comments: TAKE 2 CAPSULES BY MOUTH TWICE A DAY Held prednisone 5 mg tablet 5 mg PO DAILY Hold Instructions: while on prednisone taper, then continue when taper finished Primary Care Provider: Anupam Daily Referrals: Anupam Daily MD [Primary Care Provider] - 3-5 Days if not improving Disposition Disposition: Home, Self Care
--- NOTE | 2023-04-01 06:45 | RAD_ITS ---
EXAM: XR LEFT KNEE COMPLETE, 4 OR MORE VIEWS CLINICAL INDICATION: pain TECHNIQUE: Four or more views of the left knee. COMPARISON: No relevant prior studies available. FINDINGS: BONES/JOINTS: Ossified enthesophyte on superior pole of the patella at the quadriceps tendon insertion. Minimal degenerative narrowing of the medial joint space and of the patellofemoral joint space. Small articular osteophytes noted along the articulating surfaces of the medial and lateral femoral condyles. No acute fracture. No subluxation. Normal alignment. No sclerotic or destructive changes observed. SOFT TISSUES: Small suprapatellar knee effusion. No radiopaque foreign body. VASCULATURE: Atherosclerotic vascular calcification is present. RAD/Knee 4 or More Views IMPRESSION: Degenerative osteoarthritis with small associated knee effusion. No acute fracture or dislocation. Electronically Signed: Jaquan Montanez MD at 7:44 EST ,
[2023-04-01 08:08] VITALS: BP 152/96; PULSE 54; RESP 20; TEMP 35.8; O2SAT 97
[2023-04-01] MEDS: predniSONE 20 MG Tablet 40 MG PO (08:09)
== END 2023-04-01 08:13 | disposition home or self-care (01) ==
PROVIDERS: Emergency Provider Emergency Medicine; PCP Family Medicine; Visit Provider Emergency Medicine
DX: M17.12 Unilateral primary osteoarthritis, left knee (principal); E11.22 Type 2 diabetes mellitus with diabetic chronic kidney disease; N18.5 Chronic kidney disease, stage 5; I12.0 Hypertensive chronic kidney disease with stage 5 chronic kidney disease or end stage renal disease; E78.00 Pure hypercholesterolemia, unspecified; M25.462 Effusion, left knee
CPT/HCPCS: 73564; 99282

== ENCOUNTER → 2024-01-30 | Outpatient (CLI) | payer MEDICARE, OTHER, SELFPAY ==
--- NOTE | 2024-01-30 15:35 | RAD_ITS ---
EXAM: XR RIGHT KNEE COMPLETE, 4 OR MORE VIEWS CLINICAL INDICATION: PAIN TECHNIQUE: Four or more views of the right knee. COMPARISON: No relevant prior studies available. FINDINGS: BONES/JOINTS: Mild degenerative changes of the medial femorotibial compartment. No acute fracture. No subluxation. Normal alignment. No sclerotic or destructive changes observed. SOFT TISSUES: Unremarkable. No soft tissue swelling or gas. No radiopaque foreign body. VASCULATURE: Arterial calcifications. RAD/Knee 4 or More Views IMPRESSION: 1. No acute findings involving the right knee. 2. Mild degenerative changes of the medial femorotibial compartment. Electronically Signed: Bridger Almanza MD at 23:07 EST ,
--- NOTE | 2024-01-30 15:35 | RAD_ITS ---
EXAM: XR LEFT KNEE COMPLETE, 4 OR MORE VIEWS CLINICAL INDICATION: PAIN TECHNIQUE: Four or more views of the left knee. COMPARISON: No relevant prior studies available. FINDINGS: BONES/JOINTS: Mild degenerative changes of the medial femorotibial compartment. No acute fracture. No subluxation. Normal alignment. No sclerotic or destructive changes observed. SOFT TISSUES: Unremarkable. No soft tissue swelling or gas. No radiopaque foreign body. VASCULATURE: Arterial calcifications. RAD/Knee 4 or More Views IMPRESSION: 1. No acute findings involving the left knee. 2. Mild degenerative changes of the medial femorotibial compartment. Electronically Signed: Bridger Almanza MD at 23:07 EST ,
== END | disposition home or self-care (01) ==
PROVIDERS: PCP Family Medicine; Referring Provider Family Medicine; Visit Provider Family Medicine
DX: M25.561 Pain in right knee (principal); M25.562 Pain in left knee
CPT/HCPCS: 73564

== ENCOUNTER → 2024-02-17 | Outpatient (CLI) | payer MEDICARE, OTHER, SELFPAY ==
--- NOTE | 2024-02-17 16:21 | STRESSREP_ITS ---
Stress Test Report Date: 02/17/2024 Procedure: Pharmacologic stress nuclear imaging study Indications: Dyspnea Consent: Per the patient Procedure: The patient underwent pharmacologic (Regadenoson) evaluation with a peak heart rate of 80 beats per minute (52%predicted maximal heart rate) and a peak blood pressure of 160/102 mmHg. The baseline ECG demonstrated normal sinus rhythm. EKG during lexiscan infusion revealed no significant ischemic changes. EKG post infusion revealed no significant ischemic changes [There were no cardiac dysrhythmias pretest, during pharmacologic infusion, or recovery]. [There was no complaint of chest discomfort during pharmacologic infusion or recovery]. The examination was discontinued secondary to completion of protocol. Impression: 1. Lexiscan stress test test is negative for Lexiscan infusion induced EKG changes of ischemia. 2. Lexiscan stress test test is negative for Lexiscan infusion induced chest pain. 3. Results of the nuclear portion of the test is as below Myocardial perfusion imaging study: Technique: The patient was injected with 14.8 millicuries of technetium 99m Cardiolite and subsequently rest SPECT Cardiolite nuclear imaging was obtained in the horizontal long, vertical long, and short axis views. The patient underwent pharmacologic [Regadenoson 0.4mg] evaluation. Please see above for details. The patient was injected with 44.8 millicuries of technetium 99m Cardiolite and subsequently stress SPECT Cardiolite nuclear imaging was obtained in the horizontal long, vertical long, and short axis views. A gated Cardiolite study at peak stress was obtained. Interpretation: Rest and stress SPECT Cardiolite nuclear imaging status post realignment, normalization, and attenuation correction demonstrate normal myocardial radioisotope uptake at rest. On the attenuation corrected stress images there appears to be mild decrease in the radioisotope uptake involving the apex. Mild ischemia involving this region cannot be excluded. Gated images reveal no significant regional wall motion abnormalities. The reported LVEF is [61]%. Impression: 1. Mild ischemia involving the apex and distal anterior wall cannot be excluded. 2. Estimated ejection fraction is 61%. This note was generated with [employer] software. It may contain incorrect words, spelling, and punctuation that were not noted in checking the note before signing.
== END | disposition home or self-care (01) ==
PROVIDERS: PCP Family Medicine; Referring Provider Family Medicine; Visit Provider Family Medicine
DX: R06.02 Shortness of breath (principal)
CPT/HCPCS: 78452; 93017; A9500; A4216; J2785